=== PATIENT | female | born 1930 | race Caucasian/White ===

== ENCOUNTER 2017-12-17 03:31 | Inpatient (IN) ==
[2017-12-17] MEDS ORDERED: HYDROMORPHONE 2 MG/ML INJECTION IVP ONE (03:52)
[2017-12-17] MEDS ORDERED: ONDANSETRON 4 MG/2 ML INJECTION IVP ONE (03:52)
[2017-12-17] MEDS ORDERED: IOHEXOL 300mg/ml 100ml INJECTION ONE (04:06)
[2017-12-17] MEDS ORDERED: SALINE FLUSH 10ml SYRINGE ONE (04:06)
[2017-12-17] MEDS: SALINE FLUSH 10ml SYRINGE IVF PRN ×2 (04:14→06:05)
[2017-12-17] MEDS ORDERED: FentaNYL 100 MCG/2 ML INJECTION IVP PRN (05:41)
--- NOTE | 2017-12-17 05:54 | Emergency Department Report ---
Abdominal Pain HPI - General Chief Complaint: Abdominal Pain <JanetteSelamn Q - 12/17/17 07:17> Stated Complaint: abd and back pain <Jose Savage - 12/17/17 07:17> Time Seen by Provider: 12/17/17 03:47 <JanetteJose Q - 12/17/17 07:17> - History of Present Illness HPI narrative: 87-year-old female presents with acute onset abdominal pain. Pain is left-sided radiating from midepigastric. P pain onset yesterday evening progressed throughout the night until it became intolerable. She said some nausea but no vomiting. No diarrhea. No previous abdominal trauma. She does have a history of atrial fibrillation and is on flecainide and Eliquis. No fever or chills. Patient has previous history of breast cancer with chemotherapy. <Hebert Adams - 12/17/17 05:55> - Related Data Home Medications Medication Instructions Recorded Confirmed Apixaban [Eliquis] 2.5 tab PO BID 12/17/17 12/17/17 Citalopram [Celexa] 1 tab PO DAILY 12/17/17 12/17/17 Flecainide [Tambocor] 100 mg PO BID 12/17/17 12/17/17 Losartan [Cozaar] 100 mg PO DAILY 12/17/17 12/17/17 Metoprolol Succinate (XL) [Toprol 25 mg PO DAILY 12/17/17 12/17/17 Xl] hydroCHLOROthiazide 1 tab PO DAILY 12/17/17 12/17/17 [Hydrochlorothiazide] <Jose Savage - 12/17/17 07:17> Allergies Allergy/AdvReac Type Severity Reaction Status Date / Time No Known Allergies Allergy Verified 12/17/17 03:45 <AlfalfaJose fernandez - 12/17/17 07:17> Review of Systems All systems: reviewed and negative except as stated <Hebert Adams - 05:55> [facility] Patient Stated Medical History Cardiac Arrhythmia Yes: a fib Hypertension Yes Chemotherapy Yes: in the past <Jose Savage - 12/17/17 07:17> - Social History Smoking status: Never smoker <Hebert Adams - 12/17/17 05:55> Physical Exam - Limitations Limitations: no limitations <Hebert Adams 12/17/17 05:55> - General General appearance: alert, in distress (pain) <AngieHebert kuaffman 12/17/17 05:55 > - Normal Exams: Head:: Normocephalic without trauma <ElwoodHebert kauffman 12/17/17 06:16> Chest/Respirations:: Clear all velasquez, with good airflow, and symmetry bilaterally <ElwoodHebert kauffman 12/17/17 06:16> Cardiovascular:: Regular rate and rhythm, without murmur or gallop, Pulses 2+ all extremities, capillary refill, <2 seconds all extremities <AngieHebert kauffman 12/17/17 06:16> Neurological:: Patient is alert, and oriented, cranial nerves, motor/sensory/ cerebellar, exams w/o gross deficits, to observation <ElwoodHebert kauffman 06:16> - Chest Chest inspection: Present: other (unilateral mastectomy) <AngieHebert kauffman 06:16> - Abdominal Exam Abdominal exam: Present: soft, tenderness (midepigastric left upper quadrant), guarding, rebound, diminished bowel sounds. Absent: rigidity <ElwoodHebert kauffman 12/17/17 06:16> Course Vital Signs Temperature 98.0 F 12/17/17 03:37 Pulse Rate 58 L 12/17/17 03:37 Respiratory Rate 16 12/17/17 03:37 Blood Pressure 212/84 H 12/17/17 03:37 Pulse Oximetry 97 12/17/17 03:37 Temperature 98.0 F 12/17/17 03:37 Pulse Rate 54 L 12/17/17 06:30 Respiratory Rate 16 12/17/17 03:37 Blood Pressure 173/76 H 12/17/17 06:30 Pulse Oximetry 97 12/17/17 06:30 <Jose Savage Q - 12/17/17 07:17> Abdominal Pain - MDM Narrative Medical decision making narrative: Patient's lactate is 1.0, normal. Discussed case with Dr. Wylie, mesenteric ischemia would be lower on the differential at this time. She will observe patient, contact Dr. Caldera. <Jose Savage Q - 12/17/17 07:17> Peripheral IV with 500 cc normal saline bolus. CBC, CMP, UA with CT abdomen with contrast. She was given 0.5 mg Dilaudid with 4 mg Zofran IV. She also required 50 g fentanyl IV. White count returns appropriate with appropriate CMP. CT abdomen shows likely mesenteric ischemia. I spoke with Dr. Rodriguez, at [facility], who read to consult and help follow this patient. He recommended hospitalist to admit. I spoke with Dr. Samuel , hospitalist, who quested a lactate before agreeing to accept patient. He felt that lactate less than 4 was not mesenteric ischemia and she would not be appropriate for transfer. is assuming care here, lactate is ordered. <Hebert Adams - 12/17/17 06:16> - Differential Diagnosis Differential diagnosis: Likely: abdominal pain, acute appendicitis, constipation , gastroenteritis, pancreatitis, small bowel obstruction <Hebert Adams - 06:16> - Medical Records Attestation: I reviewed the patient's medical records. <Jose Savage - 07:17> - Lab Data Attestation: I reviewed the patient's lab results. <Jose Savage - 12/17 07:17> I reviewed the patient's lab results. <Hebert Adams - 06:16> Result diagrams: 12/17/17 04:04 12/17/17 04:04 <Jose Savage - 12/17/17 07:17> Lab Results 12/17/17 12/17/17 12/17/17 Range/Units 04:04 04:04 06:04 WBC 8.8 (4.5-11.0) T/MM3 RBC 3.77 L (4.00-5.20) M/MM3 Hgb 12.0 (12-16) GM/DL Hct 35.1 L (36-46) % MCV 93.1 (80-100) UM3 MCH 31.8 (26-34) UUG MCHC 34.2 (31-37) GM/DL RDW Std Deviation 43.3 (36.9-50.2) FL Plt Count 295 (130-400) T/MM3 MPV 10.1 (9.4-12.4) UM3 Immature Gran % (Auto) Not performed Neut % (Auto) Not performed Lymph % (Auto) Not performed [place] % (Auto) Not performed Eos % (Auto) Not performed Baso % (Auto) Not performed Neut # (Auto) Not performed Lymph # (Auto) Not performed [place] # (Auto) Not performed Eos # (Auto) Not performed Baso # (Auto) Not performed Abs Immat Gran (auto) Not performed Neutrophils % (Manual) 87.0 H (33-66) % Lymphocytes % (Manual) 9.0 L (23-45) % Monocytes % (Manual) 2.0 (0-9.0) % Eosinophils % (Manual) 2.0 (0-4) % Neutrophils # (Manual) 7.7 (1.8-7.7) T/MM3 Lymphocytes # (Manual) 0.8 L (1-4.8) T/MM3 Monocytes # (Manual) 0.2 (0-0.8) T/MM3 Eosinophils # (Manual) 0.2 (0-0.5) T/MM3 RBC Morph Comment Normal Turbidity < 20 (0-20) Sodium 137 (136-146) MEQ/L Potassium 3.6 (3.6-5) MEQ/L Chloride 99 (98-107) MEQ/L Carbon Dioxide 28 (22-30) MEQ/L Anion Gap 10 (5-15) meq/L BUN 19.0 H (7-17) MG/DL Creatinine 0.7 (0.7-1.2) mg/dL Estimated Creat Clear 44 (>50) mL/min GFR Calculation 80 (>60) mL/min BUN/Creatinine Ratio 27 H (6-26) RATIO Glucose 137 H (65-110) MG/DL Calculated Osmolality 268 (261-280) MOSM/KG Calcium 9.1 (8.4-10.2) MG/DL Total Bilirubin 0.30 (0.20-1.30) MG/DL Icterus Index < 2 (0-7) AST 22 (14-36) U/L ALT 14 (1-35) U/L Alkaline Phosphatase 52 (38-126) U/L Total Protein 7.1 (6.3-8.2) g/dL Albumin 4.2 (3.5-5.0) g/dL Globulin 2.9 (2.4-3.6) G/DL Albumin/Globulin Ratio 1.4 (1.1-2.2) RATIO Lipase 115 (23-300) U/L Plasma Lactate (0.6-2.2) MMOL/L Specimen Hemolysis < 15 (0-25) Ur Collection Type Urine, void-cc/notcc Urine Color Yellow (YELLOW) Urine Clarity Sl cloudy Urine pH 5.5 (5.0-8.0) Ur Specific [place] 1.010 L (1.015-1.025) Urine Protein Negative (NEGATIVE) Urine Glucose (UA) Negative (NEGATIVE) Urine Ketones Negative (NEGATIVE) Urine Occult Blood 1+ A (NEGATIVE) Urine Nitrate Positive A (NEGATIVE) Urine Bilirubin Negative (NEGATIVE) Urine Urobilinogen 0.2 (NORMAL) EU/DL Ur Leukocyte Esterase 1+ A (NEGATIVE) Urine RBC 3-5 H (0-3) /HPF Urine WBC 20-30 H (0-5) /HPF Urine Bacteria 2+ H (NEGATIVE) Ur Culture Indicated? Cult reflexed &setup 12/17/17 Range/Units 06:22 WBC (4.5-11.0) T/MM3 RBC (4.00-5.20) M/MM3 Hgb (12-16) GM/DL Hct (36-46) % MCV (80-100) UM3 MCH (26-34) UUG MCHC (31-37) GM/DL RDW Std Deviation (36.9-50.2) FL Plt Count (130-400) T/MM3 MPV (9.4-12.4) UM3 Immature Gran % (Auto) Neut % (Auto) Lymph % (Auto) [place] % (Auto) Eos % (Auto) Baso % (Auto) Neut # (Auto) Lymph # (Auto) [place] # (Auto) Eos # (Auto) Baso # (Auto) Abs Immat Gran (auto) Neutrophils % (Manual) (33-66) % Lymphocytes % (Manual) (23-45) % Monocytes % (Manual) (0-9.0) % Eosinophils % (Manual) (0-4) % Neutrophils # (Manual) (1.8-7.7) T/MM3 Lymphocytes # (Manual) (1-4.8) T/MM3 Monocytes # (Manual) (0-0.8) T/MM3 Eosinophils # (Manual) (0-0.5) T/MM3 RBC Morph Comment Turbidity (0-20) Sodium (136-146) MEQ/L Potassium (3.6-5) MEQ/L Chloride (98-107) MEQ/L Carbon Dioxide (22-30) MEQ/L Anion Gap (5-15) meq/L BUN (7-17) MG/DL Creatinine (0.7-1.2) mg/dL Estimated Creat Clear (>50) mL/min GFR Calculation (>60) mL/min BUN/Creatinine Ratio (6-26) RATIO Glucose (65-110) MG/DL Calculated Osmolality (261-280) MOSM/KG Calcium (8.4-10.2) MG/DL Total Bilirubin (0.20-1.30) MG/DL Icterus Index (0-7) AST (14-36) U/L ALT (1-35) U/L Alkaline Phosphatase (38-126) U/L Total Protein (6.3-8.2) g/dL Albumin (3.5-5.0) g/dL Globulin (2.4-3.6) G/DL Albumin/Globulin Ratio (1.1-2.2) RATIO Lipase (23-300) U/L Plasma Lactate 1.0 (0.6-2.2) MMOL/L Specimen Hemolysis (0-25) Ur Collection Type Urine Color (YELLOW) Urine Clarity Urine pH (5.0-8.0) Ur Specific [place] (1.015-1.025) Urine Protein (NEGATIVE) Urine Glucose (UA) (NEGATIVE) Urine Ketones (NEGATIVE) Urine Occult Blood (NEGATIVE) Urine Nitrate (NEGATIVE) Urine Bilirubin (NEGATIVE) Urine Urobilinogen (NORMAL) EU/DL Ur Leukocyte Esterase (NEGATIVE) Urine RBC (0-3) /HPF Urine WBC (0-5) /HPF Urine Bacteria (NEGATIVE) Ur Culture Indicated? <Jose Savage Q - 12/17/17 07:17> - Radiology Data Attestation: I reviewed the patient's radiology results. <Jose Savage Q - 12/17/17 07:17> I reviewed the patient's radiology results. <Hebert Adams - 12/17/17 06:16> Radiology results called as likely mesenteric ischemia. See written report. <Hebert Adams - 12/17/17 06:16> Disposition Clinical Impression: Abdominal pain Qualifiers: Abdominal location: generalized Qualified Code(s): R10.84 - Generalized abdominal pain <Jose Savage Q - 12/17/17 07:17> Disposition: 02 To [facility] <Jose Savage Q - 12/17/17 07:17> Condition: Stable <JanetteJose fernandez Q - 12/17/17 07:17> Instructions: <Jose Savage Q - 12/17/17 07:17> Prescriptions: No Action Metoprolol Succinate (XL) [Toprol Xl] 25 mg PO DAILY Losartan [Cozaar] 100 mg PO DAILY Flecainide [Tambocor] 100 mg PO BID hydroCHLOROthiazide [Hydrochlorothiazide] 1 tab PO DAILY Apixaban [Eliquis] 2.5 tab PO BID Citalopram [Celexa] 1 tab PO DAILY <Jose Savage Q - 12/17/17 07:17> Referrals: Garfield Dyer MD [Primary Care Provider] - <Jose Savage Q - 12/17/17 07:17> Forms: <Jose Savage Q - 12/17/17 07:17> Time of Disposition: 07:17 <Jose Savage Q - 12/17/17 07:17> - Seen By: physician <Jose Savage Q - 12/17/17 07:17>
[2017-12-17] MEDS ORDERED: ENOXAPARIN 80 MG/0.8 ML INJECTION SQ ONE (07:20)
--- NOTE | 2017-12-17 08:29 | CT Scan Report ---
Indication: abd pain PROCEDURE: CT abdomen pelvis w con: Encounter: Initial Comparison: None Technique: Helical imaging was performed through the abdomen and pelvis with three-dimensional volume rendered reconstructions performed on the helically acquired data. Automated Exposure Control and Iterative Reconstruction dose reducing techniques were utilized. FINDINGS: Abdomen: The lung bases are clear. There is no evidence of pleural effusion. The liver is homogeneous in appearance without evidence of enhancing lesion or mass. Gallbladder is unremarkable. There is no intra or extrahepatic biliary ductal dilatation. The spleen, pancreas, bilateral adrenals and kidneys are within normal limits. Left renal vein. The abdominal aorta is nonaneurysmal with moderate calcific atherosclerotic disease. The celiac axis, SMA, and FRANKLIN appear patent. Pelvis: There are some thickened loops of small bowel in the right lower quadrant with edema extending into the mesentery, suggesting colitis. The urinary bladder is not distended. There is no free pelvic fluid. There is no inguinal or pelvic lymphadenopathy. No gross lytic or blastic bony lesions are identified. IMPRESSION: Moderate diffuse thickening of the small bowel in the right lower quadrant with mesenteric edema. This suggests colitis either infectious, inflammatory, or ischemic. No definite vascular occlusion. .
[2017-12-17] MEDS ORDERED: NS 1,000 ML IV SCH (09:45)
--- NOTE | 2017-12-17 09:45 | History & Physical Report ---
History of Present Illness Date: 12/17/17 Chief complaint: abdominal pain, colitis HPI: Lisbeth Hernandez is a pleasant 87-year-old female patient of Dr. Garfield Dyer who also follows with Dr. Gaytan for her a-fib and hypertension. She complains of generalized abdominal pain that is worse in the right lower quadrant that begin suddenly last night. She took some Pepto-Bismol without relieve and reports vomiting it right back up. She complains of increased fatigue recently as well as nausea but denies any fevers, chills, chest pain, shortness of breath, diarrhea or dysuria. Around 2am her pain became intolerable so she presented to [facility] ED for evaluation. Upon arrival to the ED, she was hypertensive at 212/84. Her blood pressure improved after receiving Dilaudid 0.5mg and fentanyl 50 mcg for pain control. Labs were relatively unremarkable. She was noted to be hyperglycemic at 137 but denies a history of diabetes. Lactate was 1.0. UA did reveal + nitrate with 20-30 WBC and 2+ bacteria. CT abdomen/pelvis revealed moderate diffuse thickening of the small bowel in the right lower quadrant with mesenteric edema which suggests colitis either from infectious, inflammatory or ischemic without definite vascular occlusion. Initial v-rad report was concerning for mesenteric ischemia and case was discussed with Dr. Rivas, vascular surgeon in [place], who recommended admitting the patient to the hospitalist service at [facility]. Dr. Wylie was consulted and she was admitted to observation status for further evaluation and close monitoring. Dr. Caldera was consulted for surgical evaluation and expertise. Review of Systems All systems PM: 10-point ROS was reviewed, no additional remarkable complaints except - Constitutional Constitutional: Present: fatigue. Absent: chills, fever(s), weakness - EENMT Eyes: Absent: diplopia, loss of vision, photophobia Ears: Absent: ear pain Balance: Absent: falling to one side Nose: Absent: nosebleeds, allergies Mouth/Throat: Present: dry mouth. Absent: sore throat, changes in swallowing - Cardiovascular Cardiovascular: Absent: chest pain, palpitations, syncope, dyspnea on exertion, orthopnea, edema Rhythm: Present: regular rhythm Vascular: Absent: pallor of an extermity, pedal edema, unilateral swelling - Respiratory Respiratory: Absent: cough, dyspnea, hemoptysis, dyspnea on exertion, wheezing, pain on inspiration, chest congestion - Gastrointestinal Gastrointestinal: Present: abdominal pain, nausea, vomiting. Absent: change in bowel habits, diarrhea, hematochezia, melena - Genitourinary Genitourinary: Absent: dysuria, flank pain, hematuria Menstruation: post menopausal - Musculoskeletal Musculoskeletal: Present: back pain. Absent: deformity, limited range of motion , muscle weakness - Integumentary/Breasts Integumentary: Absent: rash - Neurological Neurological: Absent: abnormal gait, dizziness, focal weakness, weakness - Psychiatric Psychiatric: Absent: anxiety, depression - Endocrine Endocrine: Absent: cold intolerance, heat intolerance, palpitations - Hematologic/Lymphatic Hematologic/Lymphatic: Present: easy bruising (Eliquis) - Allergic/Immunologic Allergic/Immunologic: Absent: seasonal rhinorrhea Past Medical History Medical History: Medical History (Last Updated 12/17/17 @ 09:58 by NANY Trujillo) A-fib Chronic anticoagulation Eliquis History of GI bleed History of blood transfusion 2015 History of breast cancer ~1991 - underwent chemotherapy Hypertension Surgical History: x 3. Appendectomy. Right oophorectomy secondary to mass. Heart cath (unremarkable) - 2013. Family History: Family History Father Liver cancer Mother Diabetes High blood pressure Patient has 3 living children, 2 daughters and a son, all reportedly healthy. 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 Garfield Dyer Cardio - Dr. Gaytan (has not seen him yet). Medications Home Medications Medication Instructions Recorded Confirmed Type Apixaban [Eliquis] 2.5 tab PO BID 12/17/17 12/17/17 History Citalopram [Celexa] 1 tab PO DAILY 12/17/17 12/17/17 History Flecainide [Tambocor] 100 mg PO BID 12/17/17 12/17/17 History Losartan [Cozaar] 100 mg PO DAILY 12/17/17 12/17/17 History Metoprolol Succinate (XL) [Toprol 25 mg PO DAILY 12/17/17 12/17/17 History Xl] hydroCHLOROthiazide 1 tab PO DAILY 12/17/17 12/17/17 History [Hydrochlorothiazide] Allergies Allergy/AdvReac Type Severity Reaction Status Date / Time No Known Allergies Allergy Verified 12/17/17 03:45 Exam Vital Signs: Temperature 98.2 F 12/17/17 07:45 Pulse Rate 61 12/17/17 07:45 Respiratory Rate 16 12/17/17 07:45 Blood Pressure 166/71 H 12/17/17 07:45 Pulse Oximetry 96 12/17/17 07:45 Height/Weight/BMI: Height 5 ft Weight 98 lb 8.746 oz Body Mass Index 19.2 Comments: Patient is seen in her room while resting in bed, watching TV. She appears comfortable in bed and is alert and orientated x 3. Non-toxic appearing. - Constitutional Present: no acute distress, well nourished, well developed, thin, cooperative - Routine HEENT Exam Head: Present: normocephalic, atraumatic Eye: Present: PERRL. Absent: conjunctival icterus ENT: Present: mucous membranes dry, oropharynx clear - Routine Neck Exam Present: supple, full ROM, trachea midline - Routine Chest/Breast/Axilla Exam Chest wall: Absent: pacemaker - Routine Respiratory Exam Present: CTA bilaterally. Absent: respiratory distress, wheezes - Routine Cardiovascular Exam Present: RRR, S1, S2 - Routine Abdominal Exam Present: tenderness (generalized, worse in RLQ), distended, guarding Comments: Hyperactive bowel sounds. - Routine Extremities Exam Present: no edema, full ROM, pulses intact, normal capillary refill - Routine Back/Spine/Pelvis Exam Back/Spine: Present: full ROM. Absent: vertebral tenderness - Routine Skin Exam Present: intact, dry, warm Comments: Afebrile. - Routine Neurological Exam Present: alert, oriented X3, CN II-XII intact, moving all extremities, hearing grossly intact, normal speech - Routine Psychiatric Exam Present: normal affect, cooperative Results - Labs CBC & Chem 7: 12/17/17 04:04 12/17/17 04:04 Microbiology Results: Microbiology 12/17/17 06:04 Urine, Voided (Cc/notcc) Urine Culture - Preliminary Culture Initiated - Results Pending - Impressions Date of Exam: 12/17/17 Type of Exam(s): CT abdomen pelvis w con Reason for Exam(s): abd pain FINDINGS: Abdomen: The lung bases are clear. There is no evidence of pleural effusion. The liver is homogeneous in appearance without evidence of enhancing lesion or mass. Gallbladder is unremarkable. There is no intra or extrahepatic biliary ductal dilatation. The spleen, pancreas, bilateral adrenals and kidneys are within normal limits. Left renal vein. The abdominal aorta is nonaneurysmal with moderate calcific atherosclerotic disease. The celiac axis, SMA, and FRANKLIN appear patent. Pelvis: There are some thickened loops of small bowel in the right lower quadrant with edema extending into the mesentery, suggesting colitis. The urinary bladder is not distended. There is no free pelvic fluid. There is no inguinal or pelvic lymphadenopathy. No gross lytic or blastic bony lesions are identified. IMPRESSION: Moderate diffuse thickening of the small bowel in the right lower quadrant with mesenteric edema. This suggests colitis either infectious, inflammatory, or ischemic. No definite vascular occlusion. Assessment and Plan (1) Abdominal pain Current visit: Yes Status: Acute (2) Colitis Current visit: Yes Status: Acute Assessment and Plan: Assessment: Colitis, acute. Acute abdominal pain with nausea and vomiting. UTI, acute, POA. A-fib, chronic. Chronic anticoagulation with Eliquis. Hypertension. Plan - 12/17/17: Admit to observation status under the care of Dr. Wylie. Will consult Dr. Caldera for surgical evaluation and expertise. Will initiate Levaquin 500mg IV daily as well as Flagyl 500mg TID for treatment of suspected colitis as well as UTI. Will obtain blood cultures prior to treatment for complete evaluation. Lactate on admission was 1.0. Will keep NPO except for oral medications. Medication list verified with Dr. Dyer - current computer reconciliation is incorrect. Current home medications are as follows: * HCTZ 25mg QAM * Metoprolol succinate ER 50mg BID * Losartan 100mg daily * Citalopram 10mg daily * Fish oil 1000mg BID * Flax oil - 2 tbs over cereal daily * Calcium + D 600-200 mg-unit - 1 tab BID * Vitamin C - 1 tab BID * Eliquis 2.5mg BID * Flecainide 50mg - 2 tabs (100mg) BID Will continue home dosing of metoprolol, losartan, Eliquis and Flecainide and hold other home medications. Recheck labs in AM to monitor blood counts, electrolytes and renal function. Upon discharge, patient's care will be returned to her PCP, Dr. Dyer. Patient requests to be a FULL CODE. DVT Prophylaxis: SCD's, Eliquis GI Prophylaxis: Protonix Resuscitation Status: Full Code - Time spent with patient Time with patient PN: 70 minutes - Physician Narrative Physician: Reina Wylie MD Narrative: Date: 12/17/17 Time: 1325 I have independently evaluated and examined this patient. I reviewed the chart, the patient's history, and the PROFESSOR OF GRAPHIC DESIGN/PA's documented findings as above. We discussed and formulated the assessment and plan as above with additions as below: Mrs. Keyes describes onset of generalized abdominal pain early yesterday evening after not feeling well nonspecifically throughout the day yesterday. Pain is most intense in the right lower quadrant and has been associated with nausea and at least a couple of episodes of emesis triggered by use of Pepto- Bismol. Nausea is ongoing and she denies hematemesis or coffee-ground emesis. She had a normal bowel movement yesterday and has had no diarrhea. She describes significant "gas" and correlates more intense pain with bowel sounds that she can hear. Pain never goes away but intensity varies. She's felt warm but denies chills or sweats. CT as reported above. No dysuria/urinary frequency/ flank pain. Ill-appearing female, alert; temperature 98.2, oxygen saturation 96% room air Respirations nonlabored, good airflow, regular cardiac rhythm Abdomen soft with diffuse tenderness greatest in the right lower quadrant with guarding is present, hyperactive bowel sounds present CT abdomen/pelvis reviewed by myself and discussed with Dr. Savage-thickened loops small bowel in the right lower quadrant with edema extending into the mesentery per radiology report, consistent with colitis; moderate aortic calcification. WBC 8.8 with 87% neutrophils; LDH 432, lactic acid 1.0, procalcitonin < 0.05. There was initial concern of possible ischemic colitis however LDH and lactic acid are both low; formal reading of CT this morning indicated celiac access, SMA, and FRANKLIN are patent. Subacute onset abdominal pain, initiate treatment for infectious colitis and monitor closely. Discussed with Dr. Caldera. Requiring IV narcotics for pain control. Asymptomatic pyuria-urine culture pending, unclear treatment is indicated although will likely be covered by Levaquin. Hospital Course Summary Disclaimer: The visit summary below is not to be considered part of the above Progress Note. Hospital Course: Plan - 12/17/17: Admit to observation status under the care of Dr. Wylie. Will consult Dr. Caldera for surgical evaluation and expertise. Will initiate Levaquin 500mg IV daily as well as Flagyl 500mg TID for treatment of suspected colitis as well as UTI. Will obtain blood cultures prior to treatment for complete evaluation. Lactate on admission was 1.0. Will keep NPO except for oral medications. Medication list verified with Dr. Dyer - current computer reconciliation is incorrect. Current home medications are as follows: * HCTZ 25mg QAM * Metoprolol succinate ER 50mg BID * Losartan 100mg daily * Citalopram 10mg daily * Fish oil 1000mg BID * Flax oil - 2 tbs over cereal daily * Calcium + D 600-200 mg-unit - 1 tab BID * Vitamin C - 1 tab BID * Eliquis 2.5mg BID * Flecainide 50mg - 2 tabs (100mg) BID Will continue home dosing of metoprolol, losartan, Eliquis and Flecainide and hold other home medications. Recheck labs in AM to monitor blood counts, electrolytes and renal function. Upon discharge, patient's care will be returned to her PCP, Dr. Dyer. Patient requests to be a FULL CODE.
[2017-12-17] MEDS: MORPHINE SULFATE 2mg INJECTION IVP PRN ×2 (10:08→17:13)
[2017-12-17] MEDS: ONDANSETRON 4 MG/2 ML INJECTION IVP PRN (10:08)
[2017-12-17] MEDS: LEVOFLOXACIN PB 500 MG/100 ML BAG IV SCH (10:31)
[2017-12-17] MEDS: LR 1,000 ML IV SCH ×3 (10:32→22:00)
[2017-12-17] MEDS ORDERED: PNEUMOCOCCAL 13 VACCINE 0.5ml INJECTION IM ONE (12:27)
[2017-12-17] MEDS: MetroNIDAZOLE PB 500 MG/100 ML BAG IV SCH ×2 (13:39→19:51)
[2017-12-17] MEDS: PANTOPRAZOLE 40 MG INJECTION IVP SCH (15:54)
--- NOTE | 2017-12-17 17:58 | General Surgery Consult Note ---
Consult date: 12/18/17 Attending Physician: Reina Wylie MD Reason for consult: other (colitis) [facility] Medical History (Last Updated 12/18/17 @ 13:53 by Abiel Caledra MD) Chronic anticoagulation (Chronic) Eliquis History of breast cancer (Resolved ~1991) Left sided - underwent mastectomy and adjuvant chemotherapy Hypertension (Chronic) A-fib (Chronic) History of GI bleed (Resolved) History of blood transfusion (Inactive 2015) Surgical History: * Colonoscopy - ~2015 by [facility] in [place], [place]. * Right oophorectomy secondary to mass. * Heart cath (unremarkable) - 2013. * Left mastectomy - 1991. * x 3. * Appendectomy. 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[employer]) Does patient use chewing tobacco?: No Current residence: Apartment/Private Home Medications Home Medications Medication Instructions Recorded Confirmed Type Apixaban [Eliquis] 2.5 tab PO BID 12/17/17 12/17/17 History Citalopram [Celexa] 1 tab PO DAILY 12/17/17 12/17/17 History Flecainide [Tambocor] 100 mg PO BID 12/17/17 12/17/17 History Losartan [Cozaar] 100 mg PO DAILY 12/17/17 12/17/17 History Metoprolol Succinate (XL) [Toprol 25 mg PO DAILY 12/17/17 12/17/17 History Xl] hydroCHLOROthiazide 1 tab PO DAILY 12/17/17 12/17/17 History [Hydrochlorothiazide] Allergies Allergy/AdvReac Type Severity Reaction Status Date / Time No Known Allergies Allergy Verified 12/17/17 03:45 Review of Systems 10-point ROS: negative except for HPI and the following: - General General: Present: night sweats - Cardiovascular Cardiovascular: Present: irregular heart beat (a-fib) - Genitourinary Genitourinary: Present: other (UTI) - Musculoskeletal Musculoskeletal: Present: back pain (chronic) - Psychiatric Psychiatric: Present: anxiety - Hematologic/Lymphatic Hematologic/Lymphatic: Present: use of blood thinners - Vital Signs Last Vital Signs Temp 97.1 F 12/17/17 15:45 Pulse 64 12/17/17 15:45 Resp 16 12/17/17 15:45 BP 165/69 H 12/17/17 15:45 Pulse Ox 97 12/17/17 15:45 - Laboratory Result Diagrams: 12/18/17 04:19 12/18/17 04:19
[2017-12-17] MEDS: APIXABAN 2.5 MG TABLET PO SCH (20:57)
[2017-12-17] MEDS: FLECAINIDE 100 MG TABLET PO SCH (20:58)
[2017-12-18] MEDS: MORPHINE SULFATE 2mg INJECTION IVP PRN (01:55)
[2017-12-18] MEDS: MetroNIDAZOLE PB 500 MG/100 ML BAG IV SCH ×3 (03:55→20:34)
[2017-12-18] MEDS: NS 1,000 ML IV SCH ×2 (08:22→20:37)
[2017-12-18] MEDS: LOSARTAN 100 MG TABLET PO SCH (08:23)
[2017-12-18] MEDS: FLECAINIDE 100 MG TABLET PO SCH ×2 (08:23→20:34)
[2017-12-18] MEDS: PANTOPRAZOLE 40 MG INJECTION IVP SCH (08:24)
[2017-12-18] MEDS: APIXABAN 2.5 MG TABLET PO SCH (08:24)
[2017-12-18] MEDS: LR 1,000 ML IV SCH (08:30)
[2017-12-18] MEDS ORDERED: ENOXAPARIN 40 MG/0.4 ML INJECTION SQ SCH (09:00)
--- NOTE | 2017-12-18 09:02 | Progress Note ---
- Date 12/18/17 Subjective: Feeling much better this morning, no further abdominal pain or vomiting. Denies fevers, chills, dyspnea. Remains on IVF and NPO. KUB done this morning. Objective Vital signs: Temperature 96.9 F 12/18/17 07:06 Pulse Rate 66 12/18/17 07:41 Respiratory Rate 16 12/18/17 07:06 Blood Pressure 141/70 H 12/18/17 07:06 Pulse Oximetry 95 12/18/17 07:06 Height/Weight/BMI: Height 1.52 m Weight 44.9 kg Body Mass Index 19.2 - Constitutional Present: no acute distress, well nourished, well developed, cooperative - Routine HEENT Exam Head: Present: normocephalic, atraumatic Eye: Present: EOMI, PERRL. Absent: conjunctival icterus ENT: Present: mucous membranes moist, oropharynx clear - Routine Respiratory Exam Present: CTA bilaterally. Absent: rales, wheezes - Routine Cardiovascular Exam Present: RRR - Routine Abdominal Exam Present: soft, tenderness (mild and diffuse, no rigidity or guarding ), non distended - Routine Extremities Exam Present: no edema, pulses intact, normal capillary refill - Routine Skin Exam Present: dry, warm. Absent: rash - Routine Neurological Exam Present: alert, oriented X3, normal speech - Routine Psychiatric Exam Present: normal affect, normal thought process Results - Labs CBC & Chem 7: 12/18/17 04:19 12/18/17 04:19 Microbiology Results: Microbiology 12/17/17 06:04 Urine, Voided (Cc/notcc) Urine Culture - Final Mixed Bacterial David Present -No further testing will be performed 12/17/17 10:28 Peripheral/Iv Start Blood Culture - Preliminary Culture Initiated - Results Pending 12/17/17 10:20 Peripheral/Iv Start Blood Culture - Preliminary Culture Initiated - Results Pending - Impressions KUB reviewed from this morning, report pending, large distended loops of colon. Assessment and Plan Assessment and Plan: Assessment: Acute colitis of unclear etiology, improved with supportive care and IV antibiotics (levaquin/flagyl) --> WBC increased to 12.4K today --> Currently on LR @ 100 cc/hour and NPO --. Dr. Caldera consulted for surgical opinion Acute abdominal pain with nausea and vomiting, improved with NPO/IVF Pyuria and bacteruria; culture reviewed with mixed david Chronic atrial fibrillation, anticoagulated with eliqius and rate controlled with toprol/flecainide Hypertension, controlled Plan - 12/18/17: Continue current antibiotics and NPO state pending further evaluation by Dr. Caldera Decrease LR to 50 cc/hour maintenance rate for now pending further plans Will keep NPO except for oral medications for now Will continue home dosing of metoprolol, losartan, Eliquis and Flecainide and hold other home medications for now Recheck labs in AM to monitor blood counts, electrolytes and renal function DVT Prophylaxis: SCD's, Eliquis GI Prophylaxis: Protonix Resuscitation Status: Full Code - Physician Narrative Narrative: Date: 12/18/17 Time: 0856 Hospital Course Summary Disclaimer: The visit summary below is not to be considered part of the above Progress Note. Hospital Course: Plan - 12/17/17: Admit to observation status under the care of Dr. Wylie. Will consult Dr. Caldera for surgical evaluation and expertise. Will initiate Levaquin 500mg IV daily as well as Flagyl 500mg TID for treatment of suspected colitis as well as UTI. Will obtain blood cultures prior to treatment for complete evaluation. Lactate on admission was 1.0. Will keep NPO except for oral medications. Medication list verified with Dr. Dyer - current computer reconciliation is incorrect. Current home medications are as follows: * HCTZ 25mg QAM * Metoprolol succinate ER 50mg BID * Losartan 100mg daily * Citalopram 10mg daily * Fish oil 1000mg BID * Flax oil - 2 tbs over cereal daily * Calcium + D 600-200 mg-unit - 1 tab BID * Vitamin C - 1 tab BID * Eliquis 2.5mg BID * Flecainide 50mg - 2 tabs (100mg) BID Will continue home dosing of metoprolol, losartan, Eliquis and Flecainide and hold other home medications. Recheck labs in AM to monitor blood counts, electrolytes and renal function. Upon discharge, patient's care will be returned to her PCP, Dr. Dyer. Patient requests to be a FULL CODE. Plan - 12/18/17: Continue current antibiotics and NPO state pending further evaluation by Dr. Caldera Decrease LR to 50 cc/hour maintenance rate for now pending further plans Will keep NPO except for oral medications for now Will continue home dosing of metoprolol, losartan, Eliquis and Flecainide and hold other home medications for now Recheck labs in AM to monitor blood counts, electrolytes and renal function
[2017-12-18] MEDS: LEVOFLOXACIN PB 500 MG/100 ML BAG IV SCH (09:03)
--- NOTE | 2017-12-18 14:39 | Consultation ---
DATE OF CONSULTATION 12/17/2017 CONSULTING PHYSICIAN Abiel Caldera MD REQUESTING PROVIDER NANY Jeffries REASON FOR CONSULTATION Colitis. IMPRESSION 1. Enteritis of uncertain etiology. This is most likely an infectious process since the new onset of inflammatory bowel disease at age 87 would be less likely. 2. Anticoagulation with Eliquis. 3. Atrial fibrillation. 4. Urinary tract infection. PLAN 1. Continue n.p.o. for now. 2. IV antibiotics to cover both urinary tract infection and enteritis. Levaquin and Flagyl were recommended to the hospitalist team by telephone earlier today. 3. Hold Eliquis in case intervention does become necessary. HISTORY OF PRESENT ILLNESS Lisbeth is an 87-year-old female patient of Dr. Garfield Dyer who began to feel uncomfortable last evening around 9:00 p.m. By 10 o'clock her pain was increasing. She said that by 2 o'clock this morning her pain was intolerable and she came to the emergency department. When asked to describe her pain she could not describe the quality of the pain but said that it was "very painful." Further clarification said that it was a pressure-type pain. She rated it 8 out of 10 in severity and says that her pain was constant. Her pain is better with morphine treatment. She also reports having some back pain. She had not had any diarrhea or constipation. She is on Eliquis due to atrial fibrillation. In the emergency department she had a CT scan of the abdomen and pelvis that had shown moderate diffuse thickening of the small bowel in the right lower quadrant and some mesenteric edema. Because of the CT findings she was admitted to the hospitalist service and Surgery was consulted. PAST MEDICAL HISTORY, PAST SURGICAL HISTORY, MEDICATIONS, ALLERGIES, SOCIAL HISTORY, FAMILY HISTORY, REVIEW OF SYSTEMS, VITAL SIGNS, LABORATORY DATA See electronic consultation note. PHYSICAL EXAMINATION GENERAL: The patient is awake and alert, in no acute distress. HEENT: Sclerae clear. Extraocular muscles intact. NECK: Supple with a midline trachea. No lymphadenopathy or thyromegaly are noted. HEART: Regular rate and rhythm. LUNGS: Clear to auscultation bilaterally. ABDOMEN: Soft, tender diffusely but most significantly tender in the right upper quadrant. There is no guarding or rebound noted. No masses are noted. Her abdomen does feel slightly distended. EXTREMITIES: No clubbing, cyanosis or edema. NEUROLOGIC: Cranial nerves II-XII are grossly intact. PSYCHIATRIC: Normal mood and affect. PATIENT EDUCATION I did discuss the situation with Lisbeth and her . I explained the rationale for conservative management with IV antibiotics and they were in agreement with the plan. MADAI
--- NOTE | 2017-12-18 14:47 | Progress Note ---
DATE OF VISIT 12/18/2017 REASON FOR VISIT Follow enteritis. SUBJECTIVE Lisbeth feels much better today. Her pain is improved and she has not used any narcotic pain medicine this morning. She did use morphine overnight. OBJECTIVE VITAL SIGNS: Afebrile with stable vitals on room air. GENERAL: The patient is awake and alert, in no acute distress. ABDOMEN: Soft, minimally tender in the right upper quadrant but this is improved from yesterday. She is nontender in the remainder of the abdomen by exam but does report tenderness with palpation. LABORATORY DATA White blood cell count is 12.4. IMPRESSION 1. Enteritis of uncertain etiology though an infectious etiology is most likely. 2. Anticoagulation with Eliquis. 3. Chronic atrial fibrillation. PLAN 1. Continue IV antibiotics. 2. I do think she could be started on a clear liquid diet and see if this changes her abdominal pain. 3. If she tolerates the clear liquid diet and symptoms continue to improve, then her diet could be advanced. 4. Hold Eliquis in case clinical situation worsens and intervention does become necessary. 5. The case was discussed with Dr. Bosch this morning. MADAI
--- NOTE | 2017-12-18 16:24 | XRay Report ---
EXAM: Abdominal KUB with upright TECHNIQUE: Supine and upright views of the abdomen were obtained. HISTORY: colitis COMPARISON: CT abdomen and pelvis dated 12/17/2017. FINDINGS: Increasing gaseous distended loops of small bowel are evident within the mid abdomen with air-fluid levels and decompression of the distal small bowel loops and colon suspicious for acute small bowel obstruction. No free air is evident. No abnormal calcifications are seen. The lower lungs are clear. Included osseous structures are intact. IMPRESSION: Increasing gaseous distended loops of small bowel within the upper abdomen with air-fluid levels suspicious for developing small bowel obstruction. No free air is evident. .
[2017-12-19] MEDS: MetroNIDAZOLE PB 500 MG/100 ML BAG IV SCH ×3 (03:49→20:10)
[2017-12-19] MEDS: LEVOFLOXACIN PB 500 MG/100 ML BAG IV SCH ×2 (08:22→09:04)
[2017-12-19] MEDS: PANTOPRAZOLE 40 MG INJECTION IVP SCH (08:22)
[2017-12-19] MEDS: FLECAINIDE 100 MG TABLET PO SCH ×2 (08:22→20:10)
[2017-12-19] MEDS: LOSARTAN 100 MG TABLET PO SCH (08:22)
[2017-12-19] MEDS: NS 1,000 ML IV SCH ×2 (10:13→17:04)
--- NOTE | 2017-12-19 10:43 | Progress Note ---
- Date 12/19/17 Subjective: Feeling okay this morning, no further abdominal pain, belching quite a bit however. Discussed reasons for holding tobiasis and she is agreeable. Denies dysuria, frequency; BP has been elevated and that is concerning her. No fevers, chills, dyspnea, chest pain. Objective Vital signs: Temperature 98.4 F 12/19/17 07:36 Pulse Rate 75 12/19/17 07:36 Respiratory Rate 16 12/19/17 07:36 Blood Pressure 174/74 H 12/19/17 07:36 Pulse Oximetry 95 12/19/17 07:36 Rhythm: Normal Sinus Rhythm Height/Weight/BMI: Height 1.52 m Weight 44.9 kg Body Mass Index 19.2 - Constitutional Present: no acute distress, well nourished, well developed, cooperative - Routine HEENT Exam Head: Present: normocephalic, atraumatic Eye: Present: EOMI, PERRL. Absent: conjunctival icterus ENT: Present: mucous membranes moist, oropharynx clear - Routine Respiratory Exam Present: CTA bilaterally. Absent: wheezes - Routine Cardiovascular Exam Present: RRR - Routine Abdominal Exam Present: soft, non tender, distended (mild ) - Routine Extremities Exam Present: no edema, normal capillary refill - Routine Skin Exam Present: dry, warm. Absent: rash - Routine Neurological Exam Present: alert, oriented X3, normal speech - Routine Psychiatric Exam Present: normal affect, normal thought process Results - Labs CBC & Chem 7: 12/19/17 04:19 12/19/17 04:19 Microbiology Results: Microbiology 12/17/17 10:28 Peripheral/Iv Start Blood Culture - Preliminary No Growth After 1 Day 12/17/17 10:20 Peripheral/Iv Start Blood Culture - Preliminary No Growth After 1 Day 12/17/17 06:04 Urine, Voided (Cc/notcc) Urine Culture - Final Mixed Bacterial Cheri Present -No further testing will be performed Assessment and Plan Assessment and Plan: Assessment: Acute colitis of unclear etiology, presumed infectious source, improved with supportive care and IV antibiotics (levaquin/flagyl) --> WBC increased again today to 14.6 but symptoms improved although belching more --> Has been on saline 50 cc/hour but taking clears now and tolerating --> Dr. Caldera consulted for surgical opinion, appreciate assistance, no surgical plans thus far --> Eliquis on hold for possible surgery if that becomes necessary; last dose 12/18 Acute abdominal pain with nausea and vomiting, improved with NPO/IVF, tolerating some clears now Pyuria and bacteruria; culture reviewed from admission with mixed cheri Chronic atrial fibrillation, anticoagulated with eliqius and rate controlled with toprol/flecainide --> Sinus currently, eliquis on hold as above Hypertension, controlled outaptient --> Losartan 100 mg daily, toprol XL 50 BID is her typical regimen --> BP has been elevated here in the 170s over the past 24 hours Plan - 12/19/17: Continue current antibiotics and CLD pending further evaluation by Dr. Caldera Continue to hold eliquis until trajectory more clear Stop IVF and allow clear liquid intake alone today Continue losartan and toprol; prn hydralazine ordered for systolic >150--> may add back HCTZ tomorrow if taking more po Recheck labs in AM to monitor blood counts, electrolytes and renal function Repeat clean catch UA to ensure on occult resistant UTI driving leukocytosis Continue inpatient care at this time; still having symptoms and unable to take regular diet thus far Ambulate in the halls today with assistance Discussed with the bedside RN, patient, surgery team--will discuss further with Dr. Tanner this morning. DVT Prophylaxis: SCD's, Eliquis (aaliyahlty held, last dose 12/18) GI Prophylaxis: Protonix Resuscitation Status: Full Code - Physician Narrative Narrative: Date: 12/18/17 Time: 0856 Hospital Course Summary Disclaimer: The visit summary below is not to be considered part of the above Progress Note. Hospital Course: Plan - 12/17/17: Admit to observation status under the care of Dr. Wylie. Will consult Dr. Caldera for surgical evaluation and expertise. Will initiate Levaquin 500mg IV daily as well as Flagyl 500mg TID for treatment of suspected colitis as well as UTI. Will obtain blood cultures prior to treatment for complete evaluation. Lactate on admission was 1.0. Will keep NPO except for oral medications. Medication list verified with Dr. Dyer - current computer reconciliation is incorrect. Current home medications are as follows: * HCTZ 25mg QAM * Metoprolol succinate ER 50mg BID * Losartan 100mg daily * Citalopram 10mg daily * Fish oil 1000mg BID * Flax oil - 2 tbs over cereal daily * Calcium + D 600-200 mg-unit - 1 tab BID * Vitamin C - 1 tab BID * Eliquis 2.5mg BID * Flecainide 50mg - 2 tabs (100mg) BID Will continue home dosing of metoprolol, losartan, Eliquis and Flecainide and hold other home medications. Recheck labs in AM to monitor blood counts, electrolytes and renal function. Upon discharge, patient's care will be returned to her PCP, Dr. Dyer. Patient requests to be a FULL CODE. Plan - 12/18/17: Continue current antibiotics and NPO state pending further evaluation by Dr. Caldera Decrease LR to 50 cc/hour maintenance rate for now pending further plans Will keep NPO except for oral medications for now Will continue home dosing of metoprolol, losartan, Eliquis and Flecainide and hold other home medications for now Recheck labs in AM to monitor blood counts, electrolytes and renal function Plan - 12/19/17: Continue current antibiotics and CLD pending further evaluation by Dr. Caldera Continue to hold eliquis until trajectory more clear Stop IVF and allow clear liquid intake alone today Continue losartan and toprol; prn hydralazine ordered for systolic >150 Recheck labs in AM to monitor blood counts, electrolytes and renal function Repeat clean catch UA to ensure on occult resistant UTI driving leukocytosis Continue inpatient care at this time; still having symptoms and unable to take regular diet thus far Ambulate in the halls today with assistance
[2017-12-19] MEDS: HYDRALAZINE 10 MG TABLET PO PRN ×2 (11:13→21:30)
[2017-12-19] MEDS: ONDANSETRON 4 MG/2 ML INJECTION IVP PRN (13:06)
[2017-12-19] MEDS: METOPROLOL 5mg/5ml INJECTION IVP PRN ×2 (13:27→21:25)
[2017-12-19] MEDS ORDERED: ZOLPIDEM 5 MG TABLET PO ONE (21:10)
[2017-12-19] MEDS: SALINE FLUSH 10ml SYRINGE IVF PRN (21:26)
[2017-12-20] MEDS: MetroNIDAZOLE PB 500 MG/100 ML BAG IV SCH ×2 (03:07→17:09)
[2017-12-20] MEDS: HYDRALAZINE 10 MG TABLET PO PRN (03:37)
[2017-12-20] MEDS: ONDANSETRON 4 MG/2 ML INJECTION IVP PRN ×2 (06:22→17:25)
[2017-12-20] MEDS: METOCLOPRAMIDE 10mg/2ml INJECTION IVP PRN ×2 (08:11→14:03)
[2017-12-20] MEDS: NS 1,000 ML IV SCH (08:13)
[2017-12-20] MEDS ORDERED: DIATRIZOATE MEGLUMINE/SOD. (66%/10%) 120ml SOLN ONE (08:26)
[2017-12-20] MEDS: PANTOPRAZOLE 40 MG INJECTION IVP SCH (08:57)
[2017-12-20] MEDS ORDERED: ONDANSETRON 4 MG/2 ML INJECTION IVP ONE (09:00)
--- NOTE | 2017-12-20 09:14 | Progress Note ---
- Date 12/20/17 Subjective: Lisbeth is seen this morning following call from nursing staff. She reports having significant amount of nausea this morning. Early in the morning she was given IV Zofran followed by Santino. She did drink the PO prep for small bowel follow through. She denies having any abdominal pain currently. No chest pain or shortness of breath. BP this morning 169/76 pulse in the 60's. Objective Vital signs: Temperature 97.5 F 12/20/17 07:39 Pulse Rate 60 12/20/17 07:50 Respiratory Rate 18 12/20/17 07:39 Blood Pressure 169/76 H 12/20/17 07:39 Pulse Oximetry 94 12/20/17 07:39 Height/Weight/BMI: Height 1.52 m Weight 49.9 kg Body Mass Index 19.2 - Constitutional Present: mild distress, well nourished, well developed - Routine HEENT Exam Eye: Present: EOMI ENT: Present: mucous membranes moist, dentition normal - Routine Respiratory Exam Present: CTA bilaterally. Absent: wheezes - Routine Cardiovascular Exam Present: RRR, S1, S2. Absent: murmur - Routine Abdominal Exam Present: distended. Absent: normoactive bowel sounds (Hypoactive bowel sounds) , tenderness - Routine Extremities Exam Present: normal capillary refill - Routine Skin Exam Present: intact, dry, warm - Routine Neurological Exam Present: alert, oriented X3, CN II-XII intact, moving all extremities - Routine Lymphatic Exam Lymphatic: Absent: adenopathy - Routine Psychiatric Exam Present: normal affect, normal thought process, cooperative Results - Labs CBC & Chem 7: 12/20/17 04:02 12/20/17 04:02 Microbiology Results: Microbiology 12/19/17 13:24 Urine, Voided (Cc/notcc) Urine Culture - Preliminary Culture Initiated - Results Pending 12/17/17 10:28 Peripheral/Iv Start Blood Culture - Preliminary No Growth After 2 Days 12/17/17 10:20 Peripheral/Iv Start Blood Culture - Preliminary No Growth After 2 Days 12/17/17 06:04 Urine, Voided (Cc/notcc) Urine Culture - Final Mixed Bacterial Cheri Present -No further testing will be performed Assessment and Plan (1) Abdominal pain Current visit: Yes Status: Acute (2) Colitis Current visit: Yes Status: Acute Assessment and Plan: Assessment: Acute colitis of unclear etiology, presumed infectious source, improved with supportive care and IV antibiotics (levaquin/flagyl) --> Dr. Caldera consulted for surgical opinion, appreciate assistance, no surgical plans thus far Small bowel obstruction Acute abdominal pain with nausea and vomiting, improved with NPO/IVF Pyuria and bacteruria; assx Chronic atrial fibrillation, anticoagulated with eliqius and rate controlled with toprol/flecainide --> Sinus currently, eliquis on hold Hypertension, controlled outaptient --> Losartan 100 mg daily, toprol XL 50 BID is typical regimen Hypokalemia Hyponatremia Plan: Will work on better control of nausea Gave a one time additional dose of IV Zofran 4 mg. Continue with Reglan 10mg PRN. Will also add scopolamine patch topically Could consider IV Phenergan - however would use has last resort as this may cause encephalopathy Small bowel follow through scheduled for today Hypokalemia- Will give IV K boluses x4 bags for replacement IV Levaquin and Flagyl for antimicrobial coverage of Colitis Eliquis remains on hold Case discussed with attending, Dr Wylie DVT Prophylaxis: SCD's, Eliquis (currenlty held, last dose 12/18) GI Prophylaxis: Protonix Resuscitation Status: Full Code - Physician Narrative Physician: Reina Wylie MD Narrative: Date: 12/20/17 Time: 1540 I have independently evaluated and examined this patient. I reviewed the chart, the patient's history, and the PUMPER GAGER APPRENTICE/PA's documented findings as above. We discussed and formulated the assessment and plan as above with additions as below: Mrs. Keyes was seen with her at bedside at approximately 2 PM this afternoon after completing the small bowel follow-through study. She had a small amount of emesis shortly after drinking the Gastrografin and reported that it made her feel very nauseated. She denies having abdominal pain. She also reports having a bowel movement this morning. Nursing described feculent emesis earlier today with second episode of emesis this afternoon following completion of SBFT. Generalized pallor, respirations nonlabored Abdomen soft, moderately distended, nontender, sparse bowel sounds Upper GI/small bowel study reviewed by myself-small bowel loops are dilated and Gastrografin remains concentrated in the stomach with minimal progress at 3-1/2 hours. Radiology reports some contrast reaches the jejunum at 3-1/2 but finalized study is consistent with SBO. Refractory nausea present today, feculent emesis 2-NG replaced to low intermittent suction; d/w Dr. Caldera. PICC line to be placed for TPN. Have discussed with nursing on several occasions. Blood pressure persistently elevated-IV hydralazine ordered x 1 to assess response. Hospital Course Summary Disclaimer: The visit summary below is not to be considered part of the above Progress Note. Hospital Course: Plan - 12/17/17: Admit, observation status Will consult Dr. Caldera for surgical evaluation and expertise. Will initiate Levaquin 500mg IV daily as well as Flagyl 500mg TID for treatment of suspected colitis as well as UTI. Will obtain blood cultures prior to treatment for complete evaluation. Lactate on admission was 1.0. Will keep NPO except for oral medications. Medication list verified with Dr. Dyer - current computer reconciliation is incorrect. Current home medications are as follows: * HCTZ 25mg QAM * Metoprolol succinate ER 50mg BID * Losartan 100mg daily * Citalopram 10mg daily * Fish oil 1000mg BID * Flax oil - 2 tbs over cereal daily * Calcium + D 600-200 mg-unit - 1 tab BID * Vitamin C - 1 tab BID * Eliquis 2.5mg BID * Flecainide 50mg - 2 tabs (100mg) BID Will continue home dosing of metoprolol, losartan, Eliquis and Flecainide and hold other home medications. Recheck labs in AM to monitor blood counts, electrolytes and renal function. Upon discharge, patient's care will be returned to her PCP, Dr. Dyer. Patient requests to be a FULL CODE. 12/18/17: Continue current antibiotics and NPO state pending further evaluation by Dr. Caldera Decrease LR to 50 cc/hour maintenance rate for now pending further plans Will keep NPO except for oral medications for now Will continue home dosing of metoprolol, losartan, Eliquis and Flecainide and hold other home medications for now Recheck labs in AM to monitor blood counts, electrolytes and renal function 12/19/17: Continue current antibiotics and CLD pending further evaluation by Dr. Caldera Continue to hold eliquis until trajectory more clear Stop IVF and allow clear liquid intake alone today Continue losartan and toprol; prn hydralazine ordered for systolic >150 Recheck labs in AM to monitor blood counts, electrolytes and renal function Repeat clean catch UA to ensure on occult resistant UTI driving leukocytosis Continue inpatient care at this time; still having symptoms and unable to take regular diet thus far Ambulate in the halls today with assistance 12/20/17: Increased nausea while preparing for SBFT. Added reglan and scopolamine patch. Replace IV potassium. Eliquis remains on hold. SBFT c/w small bowel obstruction; Gastrografin remained in stomach and proximal jejunum at 3.5 hours. Refractory nausea present today, feculent emesis 2-NG replaced to low intermittent suction; d/w Dr. Caldera. PICC line to be placed for TPN. Have discussed with nursing on several occasions. Blood pressure persistently elevated-IV hydralazine ordered x 1 to assess response.
[2017-12-20] MEDS: FLECAINIDE 100 MG TABLET PO SCH ×2 (09:24→21:15)
[2017-12-20] MEDS: LEVOFLOXACIN PB 500 MG/100 ML BAG IV SCH (09:25)
[2017-12-20] MEDS: LOSARTAN 100 MG TABLET PO SCH (09:25)
[2017-12-20] MEDS ORDERED: SCOPOLAMINE 1mg/3 days PATCH (Eq. 1.5 Patch) TD SCH (09:30)
--- NOTE | 2017-12-20 09:40 | Progress Note ---
DATE OF VISIT 12/19/2017 REASON FOR VISIT Follow enteritis. SUBJECTIVE Lisbeth was tolerating her clear liquid diet well, but this afternoon developed vomiting. After her vomiting, she feels like she is doing well and is not requiring pain medication. OBJECTIVE VITAL SIGNS: Afebrile with stable vitals on room air. She is slightly hypertensive. GENERAL: The patient is awake and alert, in no acute distress. ABDOMEN: Soft, minimally tender in the right lower quadrant. Her abdominal pain is improved. She does not have any guarding, rebound, or distention. LABORATORY DATA White blood cell count increased slightly to 14.6 this morning. IMAGING KUB following her episode of vomiting still shows some dilated loops of small bowel. IMPRESSION 1. Enteritis of uncertain etiology. 2. Ileus versus obstruction related to enteritis. 3. Anticoagulation with Eliquis - currently on hold. 4. Chronic atrial fibrillation. PLAN 1. Continue n.p.o. for now with IV fluids. 2. Small bowel follow-through tomorrow to see if she does have an obstruction. 3. Hold Eliquis until the clinical situation is more clear. MADAI
[2017-12-20] MEDS: LIDOCAINE 1% INJ 10 MG, POTASSIUM CHLORIDE INJ 10 MEQ in NS 100 ML IV SCH ×4 (10:47→14:36)
--- NOTE | 2017-12-20 11:05 | XRay Report ---
EXAM: XR KUB w upright DICTATION LOCATION: [facility] INDICATION: POSSILBE SBO COMPARISON STUDY: None available. FINDINGS: Abdomen: The small bowel loops remain dilated though slightly diminished in size from one day earlier. The findings remain suspicious for small bowel obstruction. There is no free intraperitoneal air. No abnormal radiopacities overlying the abdomen. The lung bases are clear. Skeletal Structures: The visualized skeletal structures are within normal limits for the patient's age. IMPRESSION: 1. Dilated gas containing small bowel loops slightly diminished in size from one day earlier. The findings remain suspicious for small bowel obstruction. There is no free intraperitoneal air demonstrated. .
[2017-12-20] MEDS: METOPROLOL 5mg/5ml INJECTION IVP PRN (11:23)
--- NOTE | 2017-12-20 14:28 | XRay Report ---
EXAM: XR small bowel follow through LOCATION OF DICTATION: [facility] HISTORY: eval ileus vs obstruction COMPARISON: No prior studies available for comparison. FINDINGS: The research and development technician view demonstrated moderately distended gas containing small bowel loops suggestive of obstruction. There is delayed transit of barium through the dilated small bowel loops which extends to the duodenum and proximal duodenum and 3 hours and 30 minutes compatible with small bowel obstruction. There is no free intraperitoneal air demonstrated. There is positive air within the colonic bowel loops. Moderate residual contrast demonstrated within the stomach. Impression Small bowel follow through demonstrates distended small bowel loops with delayed transit of barium reaching the proximal jejunum in 3 hours and 30 minutes compatible with small bowel obstruction. .
[2017-12-20] MEDS ORDERED: HYDRALAZINE 20 MG/ML INJECTION IVP ONE (15:28)
[2017-12-20] MEDS: SALINE FLUSH 10ml SYRINGE IVF PRN (15:33)
[2017-12-20] MEDS ORDERED: HYDRALAZINE 20 MG/ML INJECTION IVP PRN (16:06)
[2017-12-20] MEDS ORDERED: SORE THROAT SPRAY 20ml PO PRN (16:40)
[2017-12-20] MEDS: ZOLPIDEM 5 MG TABLET PO PRN (21:15)
[2017-12-21] MEDS: MetroNIDAZOLE PB 500 MG/100 ML BAG IV SCH ×3 (01:00→17:04)
[2017-12-21] MEDS: NS 1,000 ML IV SCH ×2 (06:12→09:58)
[2017-12-21] MEDS: LIDOCAINE 1% INJ 10 MG, POTASSIUM CHLORIDE INJ 10 MEQ in NS 100 ML IV SCH ×3 (06:37→11:12)
[2017-12-21] MEDS ORDERED: TPN - PHARMACY CONSULT MC ONE (09:24)
[2017-12-21] MEDS: FLECAINIDE 100 MG TABLET PO SCH ×2 (09:59→20:41)
[2017-12-21] MEDS: LOSARTAN 100 MG TABLET PO SCH (09:59)
[2017-12-21] MEDS: PANTOPRAZOLE 40 MG INJECTION IVP SCH (09:59)
--- NOTE | 2017-12-21 11:29 | XRay Report ---
Indication: Follow obstruction PROCEDURE: XR abdomen 2V: Encounter: Initial Comparison: Radiographs from yesterday Findings: New nasogastric tube in place. This is coiled back on itself with the tip projecting over the lower thoracic esophagus. Dilated small bowel loops are again seen, some of which contain contrast material. These measure 4.7 cm in diameter. There is no definite colonic contrast seen. There is residual contrast in the distended stomach. Impression: Nasogastric tube is kinked in the lower esophagus. Recommend repositioning or replacement. Continued findings of high-grade small bowel obstruction without significant change. .
--- NOTE | 2017-12-21 12:44 | XRay Report ---
Indication: ng placement PROCEDURE: XR KUB: Encounter: Initial Comparison: December 21, 2017 at 1107 Findings: The nasogastric tube has been advanced and now appears to be kinked within the fundus and cardia region of the stomach. There is acute angulation present with the tip projecting near the expected GE junction. Appearance of the abdomen is otherwise unchanged from the recent comparison. Impression: The nasogastric tube has been advanced and now projects over the stomach, however there is a persistent kink. Recommend correlation with tube function. .
[2017-12-21] MEDS: LEVOFLOXACIN PB 500 MG/100 ML BAG IV SCH (13:10)
[2017-12-21] MEDS ORDERED: IOHEXOL 300mg/ml 75ml INJECTION ONE (13:39)
[2017-12-21] MEDS ORDERED: SALINE FLUSH 10ml SYRINGE ONE (13:39)
--- NOTE | 2017-12-21 14:31 | CT Scan Report ---
Indication: Re-evaluate due to obstruction PROCEDURE: CT abdomen pelvis w con: Encounter: Initial Comparison: KUBs from earlier today and CT abdomen/pelvis dated December 17, 2017 Technique: Axial CT images were performed through the abdomen and pelvis after the administration of intravenous contrast. Coronal and sagittal two-dimensional reformats. Automated Exposure Control and Iterative Reconstruction dose reducing techniques were utilized. Contrast: Omnipaque 300 67 mL Findings: Small bilateral pleural effusions with lower lobe compressive atelectasis. Nasogastric tube in place with the tip terminating in the fundus of the stomach. The liver is stable with mild periportal edema. No liver mass or bile duct dilatation. Vicarious excretion of contrast noted within the gallbladder. The spleen is diminutive and unchanged. The pancreas and adrenal glands are stable. Kidneys are normal. There are dilated loops of proximal small bowel filled with oral contrast measuring up to 4.4 cm in diameter in the upper pelvis. There is transition to decompressed small bowel in the right pelvis with a severely thick-walled 15 cm long segment of bowel, best seen on axial images 47 through 58. There is oral contrast seen beyond this segment of wall thickening into more normal caliber loops of mid to distal ileum. There is contrast material present within the colon to the level of the rectum. Small amount of free pelvic fluid. Colon is totally decompressed. Bone windows show degenerative change in the spine. Impression: 1. High-grade partial small bowel obstruction in the proximal to mid ileum of the right lower quadrant. This involves an approximately 15 cm long segment of thick-walled small bowel that could be due to ischemic, infectious or inflammatory enteritis. The amount of mesenteric edema present has significantly improved since the prior study and there is oral contrast seen throughout small and large bowel to the level of the rectum. 2. Small pleural effusions and small volume ascites. .
--- NOTE | 2017-12-21 16:52 | Progress Note ---
- Date 12/21/17 Objective Vital signs: Temperature 97.5 F 12/21/17 14:13 Pulse Rate 78 12/21/17 14:13 Respiratory Rate 18 12/21/17 14:13 Blood Pressure 142/51 H 12/21/17 14:13 Pulse Oximetry 98 12/21/17 14:13 Rhythm: Normal Sinus Rhythm Height/Weight/BMI: Height 1.52 m Weight 49.1 kg Body Mass Index 19.2 Results - Labs CBC & Chem 7: 12/21/17 04:24 12/21/17 11:19 Microbiology Results: Microbiology 12/19/17 13:24 Urine, Voided (Cc/notcc) Urine Culture - Final No Growth After 2 Days 12/17/17 10:28 Peripheral/Iv Start Blood Culture - Preliminary No Growth After 4 Days 12/17/17 10:20 Peripheral/Iv Start Blood Culture - Preliminary No Growth After 4 Days 12/17/17 06:04 Urine, Voided (Cc/notcc) Urine Culture - Final Mixed Bacterial Cheri Present -No further testing will be performed Assessment and Plan (1) Abdominal pain Current visit: Yes Status: Acute (2) Colitis Current visit: Yes Status: Acute Assessment and Plan: Assessment: Acute colitis of unclear etiology, presumed infectious source, improved with supportive care and IV antibiotics (levaquin/flagyl) --> Dr. Caldera consulted for surgical opinion, appreciate assistance, no surgical plans thus far Small bowel obstruction Acute abdominal pain with nausea and vomiting, improved with NPO/IVF Pyuria and bacteruria; assx Chronic atrial fibrillation, anticoagulated with eliqius and rate controlled with toprol/flecainide --> Sinus currently, eliquis on hold Hypertension, controlled outaptient --> Losartan 100 mg daily, toprol XL 50 BID is typical regimen Hypokalemia Hyponatremia Plan: Will work on better control of nausea Gave a one time additional dose of IV Zofran 4 mg. Continue with Reglan 10mg PRN. Will also add scopolamine patch topically Could consider IV Phenergan - however would use has last resort as this may cause encephalopathy Small bowel follow through scheduled for today Hypokalemia- Will give IV K boluses x4 bags for replacement IV Levaquin and Flagyl for antimicrobial coverage of Colitis Eliquis remains on hold Case discussed with attending, Dr Inessa DVT Prophylaxis: SCD's, Michellequmoriah (currenlty held, last dose 12/18) GI Prophylaxis: Protonix Resuscitation Status: Full Code - Physician Narrative Narrative: Date: 12/20/17 Time: 1540 I have independently evaluated and examined this patient. I reviewed the chart, the patient's history, and the TEEN COUNSELOR/PA's documented findings as above. We discussed and formulated the assessment and plan as above with additions as below: Mrs. Keyes was seen with her at bedside at approximately 2 PM this afternoon after completing the small bowel follow-through study. She had a small amount of emesis shortly after drinking the Gastrografin and reported that it made her feel very nauseated. She denies having abdominal pain. She also reports having a bowel movement this morning. Nursing described feculent emesis earlier today with second episode of emesis this afternoon following completion of SBFT. Generalized pallor, respirations nonlabored Abdomen soft, moderately distended, nontender, sparse bowel sounds Upper GI/small bowel study reviewed by myself-small bowel loops are dilated and Gastrografin remains concentrated in the stomach with minimal progress at 3-1/2 hours. Radiology reports some contrast reaches the jejunum at 3-1/2 but finalized study is consistent with SBO. Refractory nausea present today, feculent emesis 2-NG replaced to low intermittent suction; d/w Dr. Caldera. PICC line to be placed for TPN. Have discussed with nursing on several occasions. Blood pressure persistently elevated-IV hydralazine ordered x 1 to assess response. Hospital Course Summary Disclaimer: The visit summary below is not to be considered part of the above Progress Note. Hospital Course: Plan - 12/17/17: Admit, observation status Will consult Dr. Caldera for surgical evaluation and expertise. Will initiate Levaquin 500mg IV daily as well as Flagyl 500mg TID for treatment of suspected colitis as well as UTI. Will obtain blood cultures prior to treatment for complete evaluation. Lactate on admission was 1.0. Will keep NPO except for oral medications. Medication list verified with Dr. Dyer - current computer reconciliation is incorrect. Current home medications are as follows: * HCTZ 25mg QAM * Metoprolol succinate ER 50mg BID * Losartan 100mg daily * Citalopram 10mg daily * Fish oil 1000mg BID * Flax oil - 2 tbs over cereal daily * Calcium + D 600-200 mg-unit - 1 tab BID * Vitamin C - 1 tab BID * Eliquis 2.5mg BID * Flecainide 50mg - 2 tabs (100mg) BID Will continue home dosing of metoprolol, losartan, Eliquis and Flecainide and hold other home medications. Recheck labs in AM to monitor blood counts, electrolytes and renal function. Upon discharge, patient's care will be returned to her PCP, Dr. Dyer. Patient requests to be a FULL CODE. 12/18/17: Continue current antibiotics and NPO state pending further evaluation by Dr. Caldera Decrease LR to 50 cc/hour maintenance rate for now pending further plans Will keep NPO except for oral medications for now Will continue home dosing of metoprolol, losartan, Eliquis and Flecainide and hold other home medications for now Recheck labs in AM to monitor blood counts, electrolytes and renal function 12/19/17: Continue current antibiotics and CLD pending further evaluation by Dr. Caldera Continue to hold eliquis until trajectory more clear Stop IVF and allow clear liquid intake alone today Continue losartan and toprol; prn hydralazine ordered for systolic >150 Recheck labs in AM to monitor blood counts, electrolytes and renal function Repeat clean catch UA to ensure on occult resistant UTI driving leukocytosis Continue inpatient care at this time; still having symptoms and unable to take regular diet thus far Ambulate in the halls today with assistance 12/20/17: Increased nausea while preparing for SBFT. Added reglan and scopolamine patch. Replace IV potassium. Eliquis remains on hold. SBFT c/w small bowel obstruction; Gastrografin remained in stomach and proximal jejunum at 3.5 hours. Refractory nausea present today, feculent emesis 2-NG replaced to low intermittent suction; d/w Dr. Caldera. PICC line to be placed for TPN. Have discussed with nursing on several occasions. Blood pressure persistently elevated-IV hydralazine ordered x 1 to assess response.
--- NOTE | 2017-12-21 17:04 | Progress Note ---
- Date 12/21/17 Subjective: Lisbeth was seen shortly after her left PICC line was inserted. She stated that she feels good today -- no nausea or vomiting and denies abdominal pain/ bloating. She feels unsteady however when she's on her feet. She denies any SOA. She believes that the NGT to suction is helpful. Family also present - asked many questions about starting TPN and treatment plans. Objective Vital signs: Temperature 97.5 F 12/21/17 14:13 Pulse Rate 78 12/21/17 14:13 Respiratory Rate 18 12/21/17 14:13 Blood Pressure 142/51 H 12/21/17 14:13 Pulse Oximetry 98 12/21/17 14:13 Rhythm: Normal Sinus Rhythm Height/Weight/BMI: Height 1.52 m Weight 49.1 kg Body Mass Index 19.2 - Constitutional Present: no acute distress, well nourished, well developed, thin - Routine HEENT Exam Head: Present: normocephalic Eye: Present: PERRL. Absent: conjunctival icterus, scleral injection Comments: NGT left nare - Routine Respiratory Exam Present: decreased breath sounds (slightly in bases), CTA bilaterally - Routine Cardiovascular Exam Present: RRR, S1, S2 - Routine Abdominal Exam Present: soft, distended (mild). Absent: normoactive bowel sounds (slightly hypoactive) - Routine Extremities Exam Present: no edema - Routine Musculoskeletal Exam Musculoskeletal: Present: no clubbing or cyanosis - Routine Skin Exam Present: intact, dry, warm - Routine Neurological Exam Present: alert, oriented X3, normal speech - Routine Psychiatric Exam Present: normal affect, normal thought process, cooperative Results - Labs CBC & Chem 7: 12/21/17 04:24 12/21/17 11:19 Microbiology Results: Microbiology 12/19/17 13:24 Urine, Voided (Cc/notcc) Urine Culture - Final No Growth After 2 Days 12/17/17 10:28 Peripheral/Iv Start Blood Culture - Preliminary No Growth After 4 Days 12/17/17 10:20 Peripheral/Iv Start Blood Culture - Preliminary No Growth After 4 Days 12/17/17 06:04 Urine, Voided (Cc/notcc) Urine Culture - Final Mixed Bacterial Cheri Present -No further testing will be performed Assessment and Plan (1) Abdominal pain Current visit: Yes Status: Acute (2) Colitis Current visit: Yes Status: Acute Assessment and Plan: Assessment: Acute colitis of unclear etiology, presumed infectious source, improved with supportive care and IV antibiotics (levaquin/flagyl) --> Dr. Caldera consulted for surgical opinion Small bowel obstruction Acute abdominal pain with nausea and vomiting, improved with NPO/IVF Pyuria and bacteruria; assx Chronic atrial fibrillation, anticoagulated with eliqius and rate controlled with toprol/flecainide --> Sinus currently, eliquis on hold Hypertension, controlled outaptient --> Losartan 100 mg daily, toprol XL 50 BID is typical regimen Hypokalemia Hyponatremia Plan: N/V much improved. Over 2L has been suctioned via NGT since midnight. PICC line inserted to initiate TPN. Will stop NS to help prevent fluid overload. K improved to 3.5 after bolus yesterday. Na improved as well. WBC up slightly to 12.7; continue Levaquin and Flagyl BP improving; continue IV hydralazine, last dose given early this morning (442) CT abdomen/pelvis done today: Impression: 1. High-grade partial small bowel obstruction in the proximal to mid ileum of the right lower quadrant. This involves an approximately 15 cm long segment of thick-walled small bowel that could be due to ischemic, infectious or inflammatory enteritis. The amount of mesenteric edema present has significantly improved since the prior study and there is oral contrast seen throughout small and large bowel to the level of the rectum. 2. Small pleural effusions and small volume ascites. DVT Prophylaxis: SCD's, Eliquis (currenlty held, last dose 12/18) GI Prophylaxis: Protonix Resuscitation Status: Full Code - Physician Narrative Physician: Reina Wylie MD Narrative: Date: 12/21/17 Time: 1809 I have independently evaluated and examined this patient. I reviewed the chart, the patient's history, and the FILTRATION SUPERVISOR/PA's documented findings as above. We discussed and formulated the assessment and plan as above with additions as below: Mrs. Keyes has been seen several times throughout the day. She denies nausea and vomiting today but had an episode of emesis yesterday following placement of NG tube. She denies lightheadedness and reports that she is voiding without difficulty. Patient is alert and has generalized pallor Abdomen is soft and nontender; NG to suction. KUBs this morning reviewed by myself and with nursing-NG initially kinked/ retroverted in the esophagus. NG advanced personally 3 inches with improved output although remained in the distal esophagus and subsequently advanced further. CT abdomen/pelvis also reviewed by myself and discussed with Dr. Caldera- study consistent with high-grade partial obstruction with an area of thickened small bowel reported to be proximal or mid ileum by radiology-etiology uncertain. 1500 mL out with NG suction today following repositioning. Benign abdomen on examination and patient has had no bloody diarrhea since admission to suggest ischemic colitis. Given length of abnormal segment of bowel seen on CT it's my opinion that surgery will be needed for management. Dr. Caldera and I discussed this and the option was subsequently discussed with the patient and her family; surgery is tentatively being planned for tomorrow. Eliquis remains on hold. Hospital Course Summary Disclaimer: The visit summary below is not to be considered part of the above Progress Note. Hospital Course: Plan - 12/17/17: Admit, observation status Will consult Dr. Caldera for surgical evaluation and expertise. Will initiate Levaquin 500mg IV daily as well as Flagyl 500mg TID for treatment of suspected colitis as well as UTI. Will obtain blood cultures prior to treatment for complete evaluation. Lactate on admission was 1.0. Will keep NPO except for oral medications. Medication list verified with Dr. Dyer - current computer reconciliation is incorrect. Current home medications are as follows: * HCTZ 25mg QAM * Metoprolol succinate ER 50mg BID * Losartan 100mg daily * Citalopram 10mg daily * Fish oil 1000mg BID * Flax oil - 2 tbs over cereal daily * Calcium + D 600-200 mg-unit - 1 tab BID * Vitamin C - 1 tab BID * Eliquis 2.5mg BID * Flecainide 50mg - 2 tabs (100mg) BID Will continue home dosing of metoprolol, losartan, Eliquis and Flecainide and hold other home medications. Recheck labs in AM to monitor blood counts, electrolytes and renal function. Upon discharge, patient's care will be returned to her PCP, Dr. Dyer. Patient requests to be a FULL CODE. 12/18/17: Continue current antibiotics and NPO state pending further evaluation by Dr. Caldera Decrease LR to 50 cc/hour maintenance rate for now pending further plans Will keep NPO except for oral medications for now Will continue home dosing of metoprolol, losartan, Eliquis and Flecainide and hold other home medications for now Recheck labs in AM to monitor blood counts, electrolytes and renal function 12/19/17: Continue current antibiotics and CLD pending further evaluation by Dr. Caldera Continue to hold eliquis until trajectory more clear Stop IVF and allow clear liquid intake alone today Continue losartan and toprol; prn hydralazine ordered for systolic >150 Recheck labs in AM to monitor blood counts, electrolytes and renal function Repeat clean catch UA to ensure on occult resistant UTI driving leukocytosis Continue inpatient care at this time; still having symptoms and unable to take regular diet thus far Ambulate in the halls today with assistance 12/20/17: Increased nausea while preparing for SBFT. Added reglan and scopolamine patch. Replace IV potassium. Eliquis remains on hold. SBFT c/w small bowel obstruction; Gastrografin remained in stomach and proximal jejunum at 3.5 hours. Refractory nausea present today, feculent emesis 2-NG replaced to low intermittent suction; d/w Dr. Caldera. PICC line to be placed for TPN. Have discussed with nursing on several occasions. Blood pressure persistently elevated-IV hydralazine ordered x 1 to assess response. 12/21/17: N/V much improved. Over 2L has been suctioned via NGT since midnight. PICC line inserted to initiate TPN. Will stop NS to help prevent fluid overload. K improved to 3.5 after bolus yesterday. Na improved as well. WBC up slightly to 12.7; continue Levaquin and Flagyl BP improving; continue IV hydralazine, last dose given early this morning (0443) CT abdomen/pelvis done today: Impression: 1. High-grade partial small bowel obstruction in the proximal to mid ileum of the right lower quadrant. This involves an approximately 15 cm long segment of thick-walled small bowel that could be due to ischemic, infectious or inflammatory enteritis. The amount of mesenteric edema present has significantly improved since the prior study and there is oral contrast seen throughout small and large bowel to the level of the rectum. 2. Small pleural effusions and small volume ascites.
--- NOTE | 2017-12-21 18:10 | Pharmacy Consult-TPN/PPN ---
Pharmacy Consult-TPN/PPN - Laboratory Information Chemistry Turbidity < 20 (0-20) 12/21/17 11:19 Sodium 141 MEQ/L (136-146) 12/21/17 11:19 Potassium 3.5 MEQ/L (3.6-5) L D 12/21/17 11:19 Chloride 104 MEQ/L (98-107) D 12/21/17 11:19 Carbon Dioxide 25 MEQ/L (22-30) D 12/21/17 11:19 Anion Gap 12 meq/L (5-15) 12/21/17 11:19 BUN 18.0 MG/DL (7-17) H 12/21/17 11:19 Creatinine 0.6 mg/dL (0.7-1.2) L D 12/21/17 11:19 Estimated Creat Clear 30 mL/min (>50) 12/21/17 11:19 GFR Calculation 95 mL/min (>60) 12/21/17 11:19 BUN/Creatinine Ratio 30 RATIO (6-26) H 12/21/17 11:19 Glucose 98 MG/DL (65-110) 12/21/17 11:19 Calculated Osmolality 273 MOSM/KG (261-280) 12/21/17 11:19 Calcium 8.4 MG/DL (8.4-10.2) D 12/21/17 11:19 Phosphorus 3.0 MG/DL (2.5-4.5) 12/20/17 04:02 Magnesium 1.8 MG/DL (1.6-2.3) 12/20/17 04:02 Total Bilirubin 0.30 MG/DL (0.20-1.30) 12/17/17 04:04 Icterus Index < 2 (0-7) 12/21/17 11:19 AST 22 U/L (14-36) 12/17/17 04:04 ALT 14 U/L (1-35) 12/17/17 04:04 Alkaline Phosphatase 52 U/L (38-126) 12/17/17 04:04 Lactate Dehydrogenase 432 U/L (313-618) 12/17/17 06:22 C-Reactive Protein 26.9 mg/L (0-9) H 12/18/17 04:19 Total Protein 7.1 g/dL (6.3-8.2) 12/17/17 04:04 Albumin 3.0 g/dL (3.5-5.0) L 12/20/17 04:02 Globulin 2.9 G/DL (2.4-3.6) 12/17/17 04:04 Albumin/Globulin Ratio 1.4 RATIO (1.1-2.2) 12/17/17 04:04 Lipase 115 U/L (23-300) 12/17/17 04:04 Plasma Lactate 1.0 MMOL/L (0.6-2.2) 12/17/17 06:22 Procalcitonin < 0.05 NG/ML 12/17/17 10:20 Specimen Hemolysis < 15 (0-25) 12/21/17 11:19 Intake and Output 12/20/17 12/21/17 12/22/17 06:59 06:59 06:59 Intake Total 1875.417 / 5106.545 5831.25 / 1731.25 815 / 815 Output Total 675 / 675 1600 / 1600 1500 / 1500 Balance 1200.417 / 1200.417 131.25 / 131.25 -685 / -685 Weight 47.5 kg 49.9 kg 49.1 kg Intake: IV 1535.417 / 1794.532 8082.25 / 1731.25 815 / 815 Levofloxacin Pb 500 mg In 100 100 / 100 100 / 100 100 / 100 ml @ 100 mls/hr IV Q24H [facility] Rx# :[id number] Lidocaine 1% Inj 10 mg 400 / 400 300 / 300 Potassium Chloride Inj 10 meq In Ns 100 ml @ 100 mls/hr IV . Q1H [facility] Rx#:[id number] MetroNIDAZOLE PB 500 mg In 100 300.000 / 300.000 200 / 200 100 / 100 ml @ 100 mls/hr IV Q8H [facility] Rx#: [id number] Ns 1,000 ml @ 75 mls/hr IV . 251.667 / 787.932 4184.25 / 1031.25 315 / 315 [id number] [facility] Rx#:[id number] Oral 340 / 340 Output: Urine 475 / 475 250 / 250 Emesis 200 / 200 450 / 450 Gastric Drainage 900 / 900 1500 / 1500 Left Nare 900 / 900 1500 / 1500 Other: Urine Appearance Clear Urine Color Tea Colored Tea Colored Urine Odor Normal Normal Stool Color Brown Blood Tinged Stool Consistency Soft Formed Emesis Description Bile Fecal Matter Size of Bowel Movement Small # Voids 1 1 # Bowel Movements 1 1 # Unmeasured Emesis Episodes 1 - Consult Information TPN CONSULT: (INITIAL) 87 yr old female 5' 0" 49 kg requiring TPN. PICC line placed. Calculated caloric needs based on her BEE are 1500 kcal. Calculated protein needs are between 50-100 gm protein daily. TPN provides 96 gm at the rate of 80 ml/hr. TPN provides 1305 non-protein kcal at 80 ml/hr Lipids provide 200 kcal. Patients fluid requirements are 2100 ml/day. TPN @ 80 ml/hr = 1920 ml and 100 ml from the lipids. Pharmacy will monitor the patient's electrolytes and adjust as needed. Tabatha Santos, PharmD
[2017-12-21] MEDS: SALINE FLUSH 10ml SYRINGE IVF PRN (19:36)
[2017-12-21] MEDS: FAT EMULSION 20% 100 ML IV SCH (19:37)
[2017-12-21] MEDS ORDERED: CLINIMIX-E 5%/20% TPN - STANDARD FORMULA IV SCH (20:00)
--- NOTE | 2017-12-21 20:32 | Progress Note ---
DATE OF VISIT 12/20/2017 REASON FOR VISIT Follow enteritis. SUBJECTIVE Lisbeth had developed a few episodes of vomiting. Given her dilated loops on abdominal x-rays, a small bowel follow-through was ordered. This showed findings consistent with a small bowel obstruction with passage of contrast only to the jejunum. An NG tube has now been placed given her two episodes of vomiting. She denies any abdominal pain but she is fixated on the discomfort from the NG tube. OBJECTIVE VITAL SIGNS: Afebrile with stable vitals on room air. GENERAL: The patient is awake and alert. She is in mild distress related to the NG tube. ABDOMEN: Soft, nontender, minimally distended. IMAGING Small bowel follow-through was personally reviewed as well as by report. LABORATORY DATA White blood cell count has decreased to 12.1 this morning. IMPRESSION 1. Small bowel obstruction of uncertain etiology. 2. Enteritis - this may be related to her obstruction or the cause of her obstruction. 3. Anticoagulation with Eliquis - currently on hold. 4. Chronic atrial fibrillation. PLAN 1. Continue NG tube decompression. 2. Bowel rest. 3. Since her nutritional intake has been minimal I would recommend placement of a PICC line and initiation of TPN. 4. Continue to hold Eliquis given the strange clinical situation. [facility]
[2017-12-21] MEDS: ZOLPIDEM 5 MG TABLET PO PRN (20:41)
[2017-12-22] MEDS: MetroNIDAZOLE PB 500 MG/100 ML BAG IV SCH ×2 (00:04→11:16)
[2017-12-22] MEDS: SALINE FLUSH 10ml SYRINGE IVF PRN ×3 (04:00→05:39)
[2017-12-22] MEDS: LIDOCAINE 1% INJ 10 MG, POTASSIUM CHLORIDE INJ 10 MEQ in NS 100 ML IV SCH ×4 (05:38→09:22)
--- NOTE | 2017-12-22 09:54 | Progress Note ---
- Date 12/22/17 Subjective: Lisbeth was seen in follow up this morning. She is resting in bed with her family at her bedside. She complains of the irritation of the NG tube, however, recognizes its importance. He denies having any abdominal pain or nausea currently. She does inquire about timing of scheduled procedure for later today. Remains nothing by mouth. Potassium decreased to 2.5 this morning. Objective Vital signs: Temperature 97.7 F 12/22/17 08:00 Pulse Rate 85 12/22/17 08:00 Respiratory Rate 20 12/22/17 03:38 Blood Pressure 156/92 H 12/22/17 08:00 Pulse Oximetry 97 12/22/17 08:00 Rhythm: Normal Sinus Rhythm Height/Weight/BMI: Height 1.52 m Weight 49.1 kg Body Mass Index 19.2 - Constitutional Present: no acute distress, well nourished, well developed - Routine HEENT Exam Eye: Present: EOMI ENT: Present: mucous membranes moist, dentition normal - Routine Respiratory Exam Present: CTA bilaterally. Absent: wheezes - Routine Cardiovascular Exam Present: RRR, S1, S2. Absent: murmur - Routine Abdominal Exam Present: soft, non distended. Absent: normoactive bowel sounds (hypoactive), tenderness - Routine Extremities Exam Present: normal capillary refill - Routine Skin Exam Present: intact, dry, warm - Routine Neurological Exam Present: alert, oriented X3, CN II-XII intact - Routine Lymphatic Exam Lymphatic: Absent: adenopathy - Routine Psychiatric Exam Present: normal affect Results - Labs CBC & Chem 7: 12/22/17 04:06 12/22/17 10:01 Microbiology Results: Microbiology 12/19/17 13:24 Urine, Voided (Cc/notcc) Urine Culture - Final No Growth After 2 Days 12/17/17 10:28 Peripheral/Iv Start Blood Culture - Preliminary No Growth After 4 Days 12/17/17 10:20 Peripheral/Iv Start Blood Culture - Preliminary No Growth After 4 Days 12/17/17 06:04 Urine, Voided (Cc/notcc) Urine Culture - Final Mixed Bacterial Cheri Present -No further testing will be performed Assessment and Plan (1) Abdominal pain Current visit: Yes Status: Acute (2) Colitis Current visit: Yes Status: Acute Assessment and Plan: Assessment: Acute colitis of unclear etiology, presumed infectious source, improved with supportive care and IV antibiotics (levaquin/flagyl) --> Dr. Caldera consulted for surgical opinion Small bowel obstruction Acute abdominal pain with nausea and vomiting, improved with NPO/IVF Pyuria and bacteruria; assx Chronic atrial fibrillation, anticoagulated with eliqius and rate controlled with toprol/flecainide --> Sinus currently, eliquis on hold Hypertension, controlled outaptient --> Losartan 100 mg daily, toprol XL 50 BID is typical regimen Hypokalemia Hyponatremia Plan: Remains NPO with NG tube intact Planned for exploratory laparotomy with small bowel resection under the care of Dr. Caldera Continue on TPN via PICC line Will add Accuchecks given fasting BGM this morning was 199. Hypokalemia this morning down to 2.5. Patient given IV potassium supplementation. Will likely require more later today Continue Levaquin and Flagyl, WBC count 10.2 DVT Prophylaxis: SCD's, Eliquis (currenlty held, last dose 12/18) GI Prophylaxis: Protonix Resuscitation Status: Full Code - Physician Narrative Physician: Reina Wylie MD Narrative: Date: 12/20/17 Time: 1750 I have independently evaluated and examined this patient. I reviewed the chart, the patient's history, and the [employer]/PA's documented findings as above. We discussed and formulated the assessment and plan as above with additions as below: Mrs. Aguila was seen prior to surgery and again postoperatively. She denied abdominal pain or nausea preop and indicated adequate pain control postoperatively. NAD, alert, NG in place Respirations nonlabored Abdomen soft, nontender Telemetry reviewed postoperatively-atrial flutter, rate approximately 110 Surgical findings reviewed with Dr. Caldera-SBO secondary to strangulated internal hernia; s/p release of internal hernia and segmental small bowel resection Repeat potassium this morning 3.4 after 30 mEq IV potassium, additional 20 mEq to be given this evening; K-Phos increased in TPN in light of decreased potassium and phosphorus. No evidence of infectious colitis at surgery; antibiotics discontinued. IV metoprolol as needed for elevated blood pressures or tachycardia. Resume oral metoprolol and Eliquis as soon as possible postoperatively. Hospital Course Summary Disclaimer: The visit summary below is not to be considered part of the above Progress Note. Hospital Course: Plan - 12/17/17: Admit, observation status Will consult Dr. Caldera for surgical evaluation and expertise. Will initiate Levaquin 500mg IV daily as well as Flagyl 500mg TID for treatment of suspected colitis as well as UTI. Will obtain blood cultures prior to treatment for complete evaluation. Lactate on admission was 1.0. Will keep NPO except for oral medications. Medication list verified with Dr. Dyer - current computer reconciliation is incorrect. Current home medications are as follows: * HCTZ 25mg QAM * Metoprolol succinate ER 50mg BID * Losartan 100mg daily * Citalopram 10mg daily * Fish oil 1000mg BID * Flax oil - 2 tbs over cereal daily * Calcium + D 600-200 mg-unit - 1 tab BID * Vitamin C - 1 tab BID * Eliquis 2.5mg BID * Flecainide 50mg - 2 tabs (100mg) BID Will continue home dosing of metoprolol, losartan, Eliquis and Flecainide and hold other home medications. Recheck labs in AM to monitor blood counts, electrolytes and renal function. Upon discharge, patient's care will be returned to her PCP, Dr. Dyer. Patient requests to be a FULL CODE. 12/18/17: Continue current antibiotics and NPO state pending further evaluation by Dr. Caldera Decrease LR to 50 cc/hour maintenance rate for now pending further plans Will keep NPO except for oral medications for now Will continue home dosing of metoprolol, losartan, Eliquis and Flecainide and hold other home medications for now Recheck labs in AM to monitor blood counts, electrolytes and renal function 12/19/17: Continue current antibiotics and CLD pending further evaluation by Dr. Caldera Continue to hold eliquis until trajectory more clear Stop IVF and allow clear liquid intake alone today Continue losartan and toprol; prn hydralazine ordered for systolic >150 Recheck labs in AM to monitor blood counts, electrolytes and renal function Repeat clean catch UA to ensure on occult resistant UTI driving leukocytosis Continue inpatient care at this time; still having symptoms and unable to take regular diet thus far Ambulate in the halls today with assistance 12/20/17: Increased nausea while preparing for SBFT. Added reglan and scopolamine patch. Replace IV potassium. Eliquis remains on hold. SBFT c/w small bowel obstruction; Gastrografin remained in stomach and proximal jejunum at 3.5 hours. Refractory nausea present today, feculent emesis 2-NG replaced to low intermittent suction; d/w Dr. Caldera. PICC line to be placed for TPN. Have discussed with nursing on several occasions. Blood pressure persistently elevated-IV hydralazine ordered x 1 to assess response. 12/21/17: N/V much improved. Over 2L has been suctioned via NGT since midnight. PICC line inserted to initiate TPN. Will stop NS to help prevent fluid overload. K improved to 3.5 after bolus yesterday. Na improved as well. WBC up slightly to 12.7; continue Levaquin and Flagyl BP improving; continue IV hydralazine, last dose given early this morning (3) CT abdomen/pelvis done today: Impression: 1. High-grade partial small bowel obstruction in the proximal to mid ileum of the right lower quadrant. This involves an approximately 15 cm long segment of thick-walled small bowel that could be due to ischemic, infectious or inflammatory enteritis. The amount of mesenteric edema present has significantly improved since the prior study and there is oral contrast seen throughout small and large bowel to the level of the rectum. 2. Small pleural effusions and small volume ascites. 12/22/17 Remains NPO with NG tube intact Planned for exploratory laparotomy with small bowel resection under the care of Dr. Caldera Continue on TPN via PICC line Will add Accuchecks given fasting BGM this morning was 199. Hypokalemia this morning down to 2.5. Patient given IV potassium supplementation. Will likely require more later today Continue Levaquin and Flagyl, WBC count 10.2
--- NOTE | 2017-12-22 09:56 | Anesthesia Preoperative Report ---
Anesthesia Preoperative Record - Date and Time Date: 12/22/17 Preoperative Diagnosis: colitis, hyponatremia, new leukocytosis, need for Proposed Procedure: laparotomy small bowel resection NPO Since Date: 12/17/17 Allergies/Adverse Reactions: Allergies Allergy/AdvReac Type Severity Reaction Status Date / Time No Known Allergies Allergy Verified 12/17/17 03:45 - Vital Signs Vital Signs: Temperature 97.7 F 12/22/17 08:00 Pulse Rate 85 12/22/17 08:00 Respiratory Rate 20 12/22/17 03:38 Blood Pressure 156/92 H 12/22/17 08:00 Pulse Oximetry 97 12/22/17 08:00 Height and Weight: Height 1.52 m Weight 49.1 kg Body Mass Index 19.2 - Medications Inpatient Medications: Current Medications Apixaban (Eliquis) 2.5 mg PO BID [facility] Last Admin: 12/18/17 08:24 Dose: 2.5 mg Flecainide Acetate (Tambocor) 100 mg PO BID [facility] Last Admin: 12/21/17 20:41 Dose: 100 mg Hydralazine HCl (Apresoline) 10 mg IVP Q4H PRN PRN Reason: Hypertension Last Admin: 12/21/17 04:43 Dose: 10 mg Hydrochlorothiazide (Hydrodiuril) 25 mg PO DAILY [facility] Last Admin: 12/20/17 09:24 Dose: 25 mg Metronidazole/Sodium Chloride (Flagyl Iv Premix) 500 mg in 100 mls @ 100 mls/ hr IV Q8H [facility] Last Infusion: 12/22/17 01:40 Dose: Infused Levofloxacin/Dextrose (Levaquin 500 Mg Premix) 500 mg in 100 mls @ 100 mls/hr IV Q24H [facility] Last Infusion: 12/21/17 14:10 Dose: Infused Multivitamins/Minerals 10 ml/Chromium/Copper/Manganese/Zinc 1 ml/ Amino Acids/ Electrolytes/Dextrose 2,011 mls @ 80 mls/hr IV .Q24H [facility]; Protocol Last Infusion: 12/22/17 01:40 Dose: 80 mls/hr Fat Emulsion Intravenous (Intralipid 20%) 100 mls @ 25 mls/hr IV 2000 [facility] Last Infusion: 12/21/17 23:37 Dose: Infused Lactated Ringer's (Lactated Ringers) 1,000 mls @ 50 mls/hr IV .Q20H [facility] Losartan Potassium (Cozaar) 100 mg PO DAILY [facility] Last Admin: 12/21/17 09:59 Dose: 100 mg Metoclopramide HCl (Reglan) 10 mg IVP Q6H PRN Last Admin: 12/20/17 14:03 Dose: 10 mg Metoprolol Succinate (Toprol Xl) 50 mg PO BID [facility] Last Admin: 12/21/17 20:40 Dose: 50 mg Metoprolol Tartrate (Lopressor) 5 mg IVP Q6H PRN PRN Reason: Systolic blood pressure Last Admin: 12/20/17 11:23 Dose: 5 mg Morphine Sulfate (Morphine Sulf 2 Mg Inj) 1 - 2 mg IVP Q2H PRN PRN Reason: Pain Last Admin: 12/18/17 01:55 Dose: 1 mg Ondansetron HCl (Zofran) 4 mg IVP Q6H PRN PRN Reason: Nausea &/or vomiting Last Admin: 12/20/17 17:25 Dose: 4 mg Pantoprazole Sodium (Protonix Iv) 40 mg IVP DAILY [facility] Last Admin: 12/21/17 09:59 Dose: 40 mg Scopolamine (Transderm-Scop Patch Removal) 1 removal TD O ONE Stop: 12/23/17 09:31 Sodium Chloride (Iv Flush) 10 - 80 ml IVF PRN PRN PRN Reason: Flushing Last Admin: 12/22/17 05:39 Dose: 10 ml Throat Lozenges (Chloraseptic [place]int[place]) 5 spray PO Q2H PRN Last Admin: 12/20/17 17:11 Dose: 4 spray Zolpidem Tartrate (Ambien) 5 mg PO HS PRN PRN Reason: Insomnia Last Admin: 12/21/17 20:41 Dose: 5 mg Home Medications: Home Medications Medication Instructions Recorded Confirmed Type Apixaban [Eliquis] 2.5 tab PO BID 12/17/17 12/17/17 History Citalopram [Celexa] 1 tab PO DAILY 12/17/17 12/17/17 History Flecainide [Tambocor] 100 mg PO BID 12/17/17 12/17/17 History Losartan [Cozaar] 100 mg PO DAILY 12/17/17 12/17/17 History Metoprolol Succinate (XL) [Toprol 25 mg PO DAILY 12/17/17 12/17/17 History Xl] hydroCHLOROthiazide 1 tab PO DAILY 12/17/17 12/17/17 History [Hydrochlorothiazide] Is Patient on Beta Belen?: Yes - Medical History Cardiovascular: Reports: Abnormal EKG, Arrhythmia (a fib), Hypertension Gastrointestional: Reports: Obstructive Bowel (possible as of todays date), Nausea or Vomiting Present (Vomitted a couple times last night) Neuro/Musculoskeletal: Reports: Back Problems (back is currently hurting) Renal/Endocrine: Reports: Weight Loss (gradual loss over 2 years) Other History: Reports: Chemotherapy (in the past), Cancer (breast) - Surgical History HEENT Surgeries: Reports: Oral Surgery (wisdom teeth removed 24 years ago) Cardiac Surgeries/Treatments: DENIES: Pacemaker GI Surgery/Treatments: Reports: Appendectomy Reproductive Surgery/Treatment: Reports: Mastectomy (left), Oophorectomy Anesthesia Reactions: None Hx Family Anesthesia Reaction: No History of Motion Sickness: No - Social History Smoking Status: Never smoker Hx Chewing Tobacco Use: No Second Hand Exposure: No Substance Use Type: does not use Alcohol Intake Frequency: does not drink - Pertinent Findings Laboratory: CBC and BMP 12/22/17 04:06 12/22/17 04:06 BMP 12/21/17 12/22/17 11:19 04:06 Sodium 141 141 Potassium 3.5 L D 2.5 L* D Chloride 104 D 105 Carbon Dioxide 25 D 29 BUN 18.0 H 19.0 H Creatinine 0.6 L D 0.5 L Glucose 98 199 H Calcium 8.4 D 7.9 L EKG: A-fib - Physical Exam Respiratory Exam: Present: lungs clear Cardiovascular Exam: Present: irregularly irregular, no murmur - Airway Assessment Mallampati Score: III TMD: 3 Fingerbreadths Neck Extension: good Teeth: chipped teeth/crowns Overall Assessment: may be difficult intubation - ASA ASA Score: 3 - Plan Anesthesia: General Inhalation Gases - Discussion Discussion: Discussed risks/options/alternatives of anesthesia and questions answered. Patient consents. Nursing pain assessment noted. Present for Discussion: spouse, family member Attestation Statement: Prior to the delivery of any anesthetic medication, I examined the patient, developed the plan, obtained the patient's consent and discussed the risk and benefits of the procedure with the patient/guardian. - Additional Information Seen by Anesthesia: Yes
[2017-12-22] MEDS: LR 1,000 ML IV SCH ×3 (10:57→12:54)
[2017-12-22] MEDS: LOSARTAN 100 MG TABLET PO SCH (11:15)
[2017-12-22] MEDS: FLECAINIDE 100 MG TABLET PO SCH ×2 (11:15→21:21)
[2017-12-22] MEDS ORDERED: PROPOFOL 20 ML ONE (12:04)
[2017-12-22] MEDS ORDERED: ROCURONIUM 50 MG/5 ML INJECTION IVP ONE ×2 (12:04→13:54)
[2017-12-22] MEDS ORDERED: FentaNYL 250 MCG/5 ML INJECTION ONE (12:29)
[2017-12-22] MEDS: LEVOFLOXACIN PB 500 MG/100 ML BAG IV SCH (12:30)
[2017-12-22] MEDS ORDERED: SALINE FLUSH 10ml SYRINGE ONE (12:41)
[2017-12-22] MEDS ORDERED: SUGAMMADEX 200mg/2ml INJECTION IVP ONE (14:17)
--- NOTE | 2017-12-22 14:37 | General Surgery Procedure Note ---
Date of Procedure: 12/22/17 Surgeon: Verenice Anesthesia: General Inhalation Gases ASA Score: 3 Postoperative Diagnosis: Strangulated internal hernia, SBO secondary to internal hernia Procedure: Exploratory laparotomy with release of strangulated internal hernia and segmental small bowel resection
--- NOTE | 2017-12-22 14:50 | Anesthesia Postoperative Note ---
- Date and Time Date: 12/22/17 Time: 14:50 - Status Patient Participated in Evaluation: Patient Participated in Person Vital Signs: Temperature 97.0 F 12/22/17 14:27 Pulse Rate 117 H 12/22/17 14:45 Respiratory Rate 20 12/22/17 14:45 Blood Pressure 169/74 H 12/22/17 14:45 Pulse Oximetry 92 12/22/17 14:45 Respiratory Function: Airway Patent Cardiovascular Function: Regular Pulse EKG: A-fib Mental Status: Alert and Oriented Pain Intensity: 4 Hydration: IV Infusing Nausea/Vomiting: None Complications During Recover: None Apparent - Follow-Up Instructions Instructions: Per Surgeon
[2017-12-22] MEDS: PANTOPRAZOLE 40 MG INJECTION IVP SCH (15:40)
--- NOTE | 2017-12-22 15:49 | Pharmacy Consult-TPN/PPN ---
Pharmacy Consult-TPN/PPN - Laboratory Information Chemistry Turbidity < 20 (0-20) 12/22/17 10:01 Sodium 143 MEQ/L (136-146) 12/22/17 10:01 Potassium 3.4 MEQ/L (3.6-5) L D 12/22/17 10:01 Chloride 108 MEQ/L (98-107) H 12/22/17 10:01 Carbon Dioxide 28 MEQ/L (22-30) 12/22/17 10:01 Anion Gap 7 meq/L (5-15) 12/22/17 10:01 BUN 17.0 MG/DL (7-17) 12/22/17 10:01 Creatinine 0.5 mg/dL (0.7-1.2) L 12/22/17 10:01 Estimated Creat Clear 30 mL/min (>50) 12/22/17 10:01 GFR Calculation 117 mL/min (>60) 12/22/17 10:01 BUN/Creatinine Ratio 34 RATIO (6-26) H 12/22/17 10:01 Glucose 184 MG/DL (65-110) H 12/22/17 10:01 Glucometer 149 mg/dL (65-110) 12/22/17 14:36 Calculated Osmolality 282 MOSM/KG (261-280) H 12/22/17 10:01 Calcium 7.8 MG/DL (8.4-10.2) L 12/22/17 10:01 Phosphorus 1.9 MG/DL (2.5-4.5) L 12/22/17 04:06 Magnesium 2.1 MG/DL (1.6-2.3) 12/22/17 04:06 Total Bilirubin 0.30 MG/DL (0.20-1.30) 12/17/17 04:04 Icterus Index < 2 (0-7) 12/22/17 10:01 AST 22 U/L (14-36) 12/17/17 04:04 ALT 14 U/L (1-35) 12/17/17 04:04 Alkaline Phosphatase 52 U/L (38-126) 12/17/17 04:04 Lactate Dehydrogenase 432 U/L (313-618) 12/17/17 06:22 C-Reactive Protein 26.9 mg/L (0-9) H 12/18/17 04:19 Total Protein 7.1 g/dL (6.3-8.2) 12/17/17 04:04 Albumin 3.0 g/dL (3.5-5.0) L 12/20/17 04:02 Globulin 2.9 G/DL (2.4-3.6) 12/17/17 04:04 Albumin/Globulin Ratio 1.4 RATIO (1.1-2.2) 12/17/17 04:04 Lipase 115 U/L (23-300) 12/17/17 04:04 Plasma Lactate 1.0 MMOL/L (0.6-2.2) 12/17/17 06:22 Procalcitonin < 0.05 NG/ML 12/17/17 10:20 Specimen Hemolysis < 15 (0-25) 12/22/17 10:01 Intake and Output 12/21/17 12/22/17 12/23/17 06:59 06:59 06:59 Intake Total 1731.25 / 1731.25 2222.917 / 2222.917 2696 / 2696 Output Total 1600 / 1600 2150 / 2150 300 / 300 Balance 131.25 / 131.25 72.917 / 72.917 2396 / 2396 Weight 49.9 kg 49.1 kg 49.5 kg Intake: IV 1731.25 / 1731.25 2067.917 / 2067.917 2696 / 2696 Fat Emulsion 20% 100 ml @ 25 100 / 100 mls/hr IV 2000 [facility] Rx#: [id number] Levofloxacin Pb 500 mg In 100 100 / 100 100 / 100 100 / 100 ml @ 100 mls/hr IV Q24H [facility] Rx# :[id number] Lidocaine 1% Inj 10 mg 400 / 400 400 / 400 300 / 300 Potassium Chloride Inj 10 meq In Ns 100 ml @ 100 mls/hr IV . Q1H [facility] Rx#:[id number] Lr 1,000 ml @ 50 mls/hr IV . 1500 / 1500 Q20H [facility] Rx#:[id number] MetroNIDAZOLE PB 500 mg In 100 200 / 200 300 / 300 100 / 100 ml @ 100 mls/hr IV Q8H [facility] Rx#: [id number] Multi-Vit Infusion 10 ml Multi 486.667 / 486.667 -Trace Elements 1 ml In TPN - Standard Formula 2,000 ml @ 80 mls/hr IV .Q24H [facility] Rx#: [id number] Ns 1,000 ml @ 75 mls/hr IV . 1031.25 / 1031.25 651.25 / 651.25 [id number] [facility] Rx#:[id number] Oral 155 / 155 Output: Urine 250 / 250 200 / 200 Emesis 450 / 450 Gastric Drainage 900 / 900 1950 / 1950 300 / 300 Left Nare 900 / 900 1950 / 1950 300 / 300 Other: Urine Appearance Clear Clear 2-way Urethral Clear Urine Color Tea Colored Tea Colored Dark Yellow 2-way Urethral Straw Urine Odor Normal Strong Normal Stool Characteristics Normal for Patient Stool Color Brown Brown Blood Tinged Yellow Stool Consistency Soft Soft Formed Watery Emesis Description Fecal Matter Size of Bowel Movement Small Moderate # Voids 1 1 1 # Bowel Movements 1 1 1 # Unmeasured Emesis Episodes 1 TPN THERAPY: DAY 2 TPN continued postop. Adding K+Phosphate 20mEq to each bag starting with next bag this evening. Calculated caloric needs based on her BEE are 1500 kcal. Calculated protein needs are between 50-100 gm protein daily. TPN provides 96 gm at the rate of 80 ml/hr. TPN provides 1305 non-protein kcal at 80 ml/hr Continue one bag of Fat Emulsion 20% 100ml to prevent EFAD and add calories ( 200 kcal). Patients fluid requirements are 2100 ml/day. Continue TPN @ 80 ml/hr = 1920 ml and 100 ml from the lipids = 2020 total fluids per day. Pharmacy will monitor the patient's electrolytes and adjust as needed. Thank you
[2017-12-22] MEDS: MORPHINE SULFATE 2mg INJECTION IVP PRN ×3 (16:55→21:55)
[2017-12-22] MEDS ORDERED: METOPROLOL 5mg/5ml INJECTION IVP PRN (17:58)
--- NOTE | 2017-12-22 18:06 | Progress Note ---
DATE OF VISIT 12/21/2017 REASON FOR VISIT Follow small bowel obstruction. SUBJECTIVE Lisbeth still does not like her NG tube but she says her abdomen is feeling better. Her NG tube was just repositioned and had fairly significant output of over 1000 mL in a short period of time. She denies any nausea. OBJECTIVE VITAL SIGNS: Afebrile with stable vitals on 2 L/nasal cannula. GENERAL: The patient is awake, alert, in no acute distress. ABDOMEN: Soft, nontender, nondistended. She does have an NG tube in place with significant dark brown output. IMAGING The patient's KUB from this morning was reviewed and showed position of the NG tube beneath the diaphragm though there was still a possible kink in the tube. There were ongoing dilated bowel loops. IMPRESSION 1. Small bowel obstruction of uncertain etiology - this may be related to inflammation of the bowel segment involved by enteritis. 2. Enteritis. 3. Anticoagulation with Eliquis - currently on hold. 4. Chronic atrial fibrillation. PLAN 1. Continue NG tube decompression. 2. Initiate TPN via a PICC line today. 3. Repeat CT scan given the difficult clinical situation of improvement in clinical symptoms yet ongoing radiographic evidence of an obstruction. ADDENDUM The CT scan the abdomen and pelvis from this afternoon was reviewed. It showed a 15-cm segment of thickened small bowel with a very narrow lumen through the area. There was proximal dilated bowel and some contrast in the colon. Radiology report was also reviewed. I did discuss the CT findings with Lisbeth and her family. I explained that I felt that her significant thickening of the small bowel and the area of concern would likely lead to prolonged small bowel obstruction and that the quickest resolution to her issue may be with surgery. I discussed exploratory laparotomy with segmental small bowel resection with the patient and her family and she was willing to proceed to the OR tomorrow. PATIENT EDUCATION Patient Education The details, risks and benefits of exploratory laparotomy with small-bowel resection were discussed with the patient and her family. The discussion included but was not limited to bleeding, infection, injury to intraabdominal contents, anastomotic leak, enterocutaneous fistula, abscess formation, and complications of anesthesia. MADAI
[2017-12-22] MEDS: [UNRECOGNIZED DRUG - OTHER] IV SCH (18:11)
[2017-12-22] MEDS: MULTI VIT INFUSION IV SCH (18:11)
[2017-12-22] MEDS: POTASSIUM PHOSPHATE IV SCH (18:11)
[2017-12-22] MEDS: LIDOCAINE 1% 2ml INJ 10 MG, POTASSIUM CHLORIDE INJ 10 MEQ in NS 100 ML IV SCH ×2 (18:39→19:48)
--- NOTE | 2017-12-22 21:10 | Operative Note ---
DATE OF OPERATION 12/22/2017 SURGEON Abiel Caldera MD SUPERVISOR THROWING DEPARTMENT Michael Chase MD PREOPERATIVE DIAGNOSIS Small bowel obstruction. POSTOPERATIVE DIAGNOSES 1. Strangulated internal hernia. 2. Small bowel obstruction related to strangulated internal hernia. PROCEDURE 1. Exploratory laparotomy. 2. Release of strangulated hernia. 3. Segmental small bowel resection with anastomosis. ANESTHESIA General. ASA Class 3 INDICATIONS The patient is an 87-year-old female who had been admitted to the hospital for the diagnosis of enteritis based on some inflammation seen on a CT scan. The patient's clinical condition was worsening and she had developed a bowel obstruction. A small bowel follow-through had failed to reveal passage of the contrast. A repeat CT scan had been performed and showed a 15-cm segment of thickened small bowel that was associated with the point of obstruction. Exploratory laparotomy with segmental small bowel resection was recommended to her. FINDINGS There was a short segment of the jejunum that had been involved in a strangulated internal hernia. There did not appear to be arterial compromise but venous outflow compromised the mesentery since there was thrombosis of some of the vessels in the mesentery but not necrotic bowel. The proximal bowel was dilated and the distal bowel was decompressed. 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 The left ovary remained in position without abnormality. DESCRIPTION OF PROCEDURE After informed consent was obtained the patient was taken to the operating room and placed in a supine position. General anesthesia was administered by the anesthesia team. The patient's abdomen was prepped and draped in usual sterile fashion. The patient's prior lower midline incision was reopened on the superior aspect of the incision. The incision was extended to the left of the umbilicus and slightly above the umbilicus. Electrocautery was used to dissect down through the subcutaneous tissue. The peritoneal cavity was entered just above the umbilicus and a finger was inserted while the fascia was divided with cautery. Some omental adhesions to the undersurface of the fascia were taken down with cautery. Once the incision was opened additional adhesions in the pelvis of the omentum to the pelvic sidewall and the uterus were taken down using cautery. With adequate space developed an Donavan O Wound Protector was placed to protect the subcutaneous tissue during the procedure. The small bowel was then run from the terminal ileum to the ligament of Treitz and the single area of abnormality was noted. The Meckel's diverticulum was incidentally noted at the terminal ileum. The liver and gallbladder had been palpated and no abnormality was noted. The left ovary had been inspected along with the uterus and fallopian tubes. The colon itself appeared normal. Given the venous compromise of the segment of the small bowel, it was felt that a segmental small bowel resection would be required. There was clear delineation of the transition point with signs of extrinsic compression along with band of narrowing along the mesentery delineating the abnormal mesentery from normal- appearing mesentery. Division sites were selected for the small bowel both proximal and distal to the abnormal segment. Windows were made in the mesentery and the bowel loops were placed within a TLC75 stapler. The stapler was fired to divide the two bowel loops. The mesentery was then divided between clamps and the edges of the mesentery were ligated with 0-Vicryl ties. Once the segment of compromised bowel was removed it was sent to Pathology. The surgical field was draped with sterile towels and the corners of the staple lines were removed after atraumatic bowel clamps were placed on the small bowel to keep the small bowel contents from leaking during anastomosis. A reload of the TLC75 stapler was fired to create a common channel of the two bowel segments. The stapler had been fired along the antimesenteric borders. The staple lines at the common enterotomy were then offset and the common enterotomy was closed with a [id number] stapler. The anastomosis was palpated and was noted to be widely patent. 3-0 Vicryl sutures were placed at the crotch of the anastomosis to prevent unzippering. The mesenteric defect was closed with a 3-0 PDS suture. The abdomen had been irrigated and suctioned free of fluid and no other abnormalities were noted. The anastomosis was returned to the abdomen and the omentum was draped over the small bowel. The wound protector was removed after I had removed an outer surgical glove. The entire surgical team then changed gown and gloves. The sterile field was redraped and new instruments were used for closure. The fascia was closed with running #1 PDS suture. The base of the umbilicus had been divided with cautery to expose the fascial edges. The umbilicus was tacked to the fascia with a [id number] stitch of 3-0 Vicryl. Given the patient's thin body habitus the knot of the PDS suture was also tacked within a subcutaneous space. The skin was closed with marvin. Sterile bandages were applied as a dressing. Dr. Chase was present throughout the entire operation and did provide critical exposure with retraction and assistance in creating the anastomosis. MADAI
[2017-12-22] MEDS: FAT EMULSION 20% 100 ML IV SCH (21:17)
[2017-12-22] MEDS: INSULIN ASPART 100unit/ml INJECTION SQ PRN (22:16)
[2017-12-23] MEDS: MORPHINE SULFATE 2mg INJECTION IVP PRN (00:39)
[2017-12-23] MEDS: INSULIN ASPART 100unit/ml INJECTION SQ PRN ×2 (02:59→09:04)
--- NOTE | 2017-12-23 08:43 | Pharmacy Consult-TPN/PPN ---
Pharmacy Consult-TPN/PPN - Laboratory Information Chemistry Turbidity < 20 (0-20) 12/23/17 04:01 Sodium 144 MEQ/L (136-146) 12/23/17 04:01 Potassium 3.2 MEQ/L (3.6-5) L 12/23/17 04:01 Chloride 109 MEQ/L (98-107) H 12/23/17 04:01 Carbon Dioxide 27 MEQ/L (22-30) 12/23/17 04:01 Anion Gap 8 meq/L (5-15) 12/23/17 04:01 BUN 18.0 MG/DL (7-17) H 12/23/17 04:01 Creatinine 0.5 mg/dL (0.7-1.2) L 12/23/17 04:01 Estimated Creat Clear 31 mL/min (>50) 12/23/17 04:01 GFR Calculation 117 mL/min (>60) 12/23/17 04:01 BUN/Creatinine Ratio 36 RATIO (6-26) H 12/23/17 04:01 Glucose 176 MG/DL (65-110) H 12/23/17 04:01 Glucometer 186 mg/dL (65-110) 12/23/17 07:47 Calculated Osmolality 283 MOSM/KG (261-280) H 12/23/17 04:01 Calcium 7.2 MG/DL (8.4-10.2) L 12/23/17 04:01 Phosphorus 2.4 MG/DL (2.5-4.5) L 12/23/17 04:01 Magnesium 2.1 MG/DL (1.6-2.3) 12/22/17 04:06 Total Bilirubin 0.30 MG/DL (0.20-1.30) 12/17/17 04:04 Icterus Index < 2 (0-7) 12/23/17 04:01 AST 22 U/L (14-36) 12/17/17 04:04 ALT 14 U/L (1-35) 12/17/17 04:04 Alkaline Phosphatase 52 U/L (38-126) 12/17/17 04:04 Lactate Dehydrogenase 432 U/L (313-618) 12/17/17 06:22 C-Reactive Protein 26.9 mg/L (0-9) H 12/18/17 04:19 Total Protein 7.1 g/dL (6.3-8.2) 12/17/17 04:04 Albumin 3.0 g/dL (3.5-5.0) L 12/20/17 04:02 Globulin 2.9 G/DL (2.4-3.6) 12/17/17 04:04 Albumin/Globulin Ratio 1.4 RATIO (1.1-2.2) 12/17/17 04:04 Lipase 115 U/L (23-300) 12/17/17 04:04 Plasma Lactate 1.0 MMOL/L (0.6-2.2) 12/17/17 06:22 Procalcitonin < 0.05 NG/ML 12/17/17 10:20 Specimen Hemolysis < 15 (0-25) 12/23/17 04:01 - Consult Information TPN THERAPY: DAY 3 TPN continued postop. Continue to add the extra K+Phosphate 20mEq to each bag starting with next bag this evening. Calculated caloric needs based on her BEE are 1500 kcal. Calculated protein needs are between 50-100 gm protein daily. TPN provides 96 gm at the rate of 80 ml/hr. TPN provides 1305 non-protein kcal at 80 ml/hr Continue one bag of Fat Emulsion 20% 100ml to prevent EFAD and add calories ( 200 kcal). Patients fluid requirements are 2100 ml/day. Continue TPN @ 80 ml/hr = 1920 ml and 100 ml from the lipids = 2020 total fluids per day. Pharmacy will monitor the patient's electrolytes and adjust as needed. Thank you for the TPN Consult, Cristian Ruiz, Pharmacist.
[2017-12-23] MEDS: FLECAINIDE 100 MG TABLET PO SCH ×2 (09:00→20:37)
[2017-12-23] MEDS: LOSARTAN 100 MG TABLET PO SCH (09:00)
[2017-12-23] MEDS: PANTOPRAZOLE 40 MG INJECTION IVP SCH (09:01)
[2017-12-23] MEDS ORDERED: SCOPOLAMINE PATCH REMOVAL TD ONE (09:30)
--- NOTE | 2017-12-23 10:06 | Progress Note ---
- Date 12/23/17 Subjective: Lisbeth is seen this morning in follow-up. She is resting in bed with her daughter at the bedside. Overall, she appears weak and frail. Reports had somewhat of a difficult night. She did require morphine for abdominal pain control. Her noted that she had some confusion and dreams or hallucinations following morphine. This morning Lisbeth denies any abdominal pain at rest. She does note to be uncomfortable with position changes. NG tube remains intact. Mildly tachycardia at 110 at time of examination. Objective Vital signs: Temperature 99.1 F 12/23/17 07:18 Pulse Rate 112 H 12/23/17 07:18 Respiratory Rate 17 12/23/17 07:18 Blood Pressure 131/59 12/23/17 07:18 Pulse Oximetry 93 12/23/17 07:18 Height/Weight/BMI: Height 1.52 m Weight 51.8 kg Body Mass Index 19.2 - Constitutional Present: no acute distress, well nourished, well developed - Routine HEENT Exam Eye: Present: EOMI ENT: Present: mucous membranes moist, dentition normal - Routine Respiratory Exam Present: CTA bilaterally. Absent: wheezes - Routine Cardiovascular Exam Present: RRR, S1, S2. Absent: murmur - Routine Abdominal Exam Present: soft, non distended. Absent: normoactive bowel sounds (hypoactive), tenderness Comments: Surgical dressing intact to abdominal incision - Routine Extremities Exam Present: full ROM - Routine Skin Exam Present: intact, dry, warm - Routine Neurological Exam Present: alert, oriented X3, CN II-XII intact - Routine Lymphatic Exam Lymphatic: Absent: adenopathy - Routine Psychiatric Exam Present: cooperative Results - Labs CBC & Chem 7: 12/23/17 04:01 12/23/17 04:01 Microbiology Results: Microbiology 12/17/17 10:28 Peripheral/Iv Start Blood Culture - Final No Growth After 5 Days 12/17/17 10:20 Peripheral/Iv Start Blood Culture - Final No Growth After 5 Days 12/19/17 13:24 Urine, Voided (Cc/notcc) Urine Culture - Final No Growth After 2 Days 12/17/17 06:04 Urine, Voided (Cc/notcc) Urine Culture - Final Mixed Bacterial Cheri Present -No further testing will be performed Assessment and Plan (1) Abdominal pain Current visit: Yes Status: Acute (2) Colitis Current visit: Yes Status: Acute Assessment and Plan: Assessment: Acute colitis of unclear etiology, presumed infectious source Small bowel obstruction Acute abdominal pain with nausea and vomiting Pyuria and bacteruria; assx Hx atrial fibrillation, eliqius/toprol/flecainide --> Sinus on admission, eliquis on hold Atrial fibrillation/flutter-12/22/17 Hypertension Hypokalemia Hyponatremia Plan: Remains on TPN via PICC line. Remains NPO with NG tube intact Hypokalemia- 3.2. Will given IV Potassium bags x2 bags. Will recheck later today Remains in A-fib RVR 110-120. BB was help last night, however was given this am. PRN Lopressor for tachycardia Work on weaning down oxygen as able. Currently on 2 liters. Levaquin and Flagyl discontinued. Eliquis remains on hold. Overall appears fragile and weak. DVT Prophylaxis: SCD's, Eliquis (currenlty held, last dose 12/18) GI Prophylaxis: Protonix Resuscitation Status: Full Code - Physician Narrative Physician: Reina Wylie MD Narrative: Date: 12/20/17 Time: 1600 I have independently evaluated and examined this patient. I reviewed the chart, the patient's history, and the CLINICAL HAEMATOLOGIST/PA's documented findings as above. We discussed and formulated the assessment and plan as above with additions as below: Mrs. Hernandez was seen with family at bedside late this morning at which time she denied chest pain or palpitations; she reports abdominal pain is present with any movement or activity. NAD, alert rest Respirations nonlabored, good airflow, breath sounds clear Irregular cardiac rhythm Telemetry strips reviewed-preoperatively yesterday rhythm was atrial fibrillation although strip at midnight 12/22 remained sinus rhythm. Remains in A. fib/flutter today with low-grade tachycardia. Medications reviewed-flecainide/metoprolol on hold only yesterday so patient had not missed medications when she went into atrial fibrillation. Eliquis however has been on hold. Cardiology consulted for recommendations regarding risk of re-converting since patient has not been anticoagulated for a number of days. Discussed with Sherry Izquierdo. Discussed with Dr. Caldera-resume Musa in a.m.; Lovenox today. Repeat potassium pending to determine if additional potassium should be given today. Hospital Course Summary Disclaimer: The visit summary below is not to be considered part of the above Progress Note. Hospital Course: Plan - 12/17/17: Admit, observation status Will consult Dr. Caldera for surgical evaluation and expertise. Will initiate Levaquin 500mg IV daily as well as Flagyl 500mg TID for treatment of suspected colitis as well as UTI. Will obtain blood cultures prior to treatment for complete evaluation. Lactate on admission was 1.0. Will keep NPO except for oral medications. Medication list verified with Dr. Dyer - current computer reconciliation is incorrect. Current home medications are as follows: * HCTZ 25mg QAM * Metoprolol succinate ER 50mg BID * Losartan 100mg daily * Citalopram 10mg daily * Fish oil 1000mg BID * Flax oil - 2 tbs over cereal daily * Calcium + D 600-200 mg-unit - 1 tab BID * Vitamin C - 1 tab BID * Eliquis 2.5mg BID * Flecainide 50mg - 2 tabs (100mg) BID Will continue home dosing of metoprolol, losartan, Eliquis and Flecainide and hold other home medications. Recheck labs in AM to monitor blood counts, electrolytes and renal function. Upon discharge, patient's care will be returned to her PCP, Dr. Dyer. Patient requests to be a FULL CODE. 12/18/17: Continue current antibiotics and NPO state pending further evaluation by Dr. Caldera Decrease LR to 50 cc/hour maintenance rate for now pending further plans Will keep NPO except for oral medications for now Will continue home dosing of metoprolol, losartan, Eliquis and Flecainide and hold other home medications for now Recheck labs in AM to monitor blood counts, electrolytes and renal function 12/19/17: Continue current antibiotics and CLD pending further evaluation by Dr. Caldera Continue to hold eliquis until trajectory more clear Stop IVF and allow clear liquid intake alone today Continue losartan and toprol; prn hydralazine ordered for systolic >150 Recheck labs in AM to monitor blood counts, electrolytes and renal function Repeat clean catch UA to ensure on occult resistant UTI driving leukocytosis Continue inpatient care at this time; still having symptoms and unable to take regular diet thus far Ambulate in the halls today with assistance 12/20/17: Increased nausea while preparing for SBFT. Added reglan and scopolamine patch. Replace IV potassium. Eliquis remains on hold. SBFT c/w small bowel obstruction; Gastrografin remained in stomach and proximal jejunum at 3.5 hours. Refractory nausea present today, feculent emesis 2-NG replaced to low intermittent suction; d/w Dr. Caldera. PICC line to be placed for TPN. Have discussed with nursing on several occasions. Blood pressure persistently elevated-IV hydralazine ordered x 1 to assess response. 12/21/17: N/V much improved. Over 2L has been suctioned via NGT since midnight. PICC line inserted to initiate TPN. Will stop NS to help prevent fluid overload. K improved to 3.5 after bolus yesterday. Na improved as well. WBC up slightly to 12.7; continue Levaquin and Flagyl BP improving; continue IV hydralazine, last dose given early this morning (0443) CT abdomen/pelvis done today: Impression: 1. High-grade partial small bowel obstruction in the proximal to mid ileum of the right lower quadrant. This involves an approximately 15 cm long segment of thick-walled small bowel that could be due to ischemic, infectious or inflammatory enteritis. The amount of mesenteric edema present has significantly improved since the prior study and there is oral contrast seen throughout small and large bowel to the level of the rectum. 2. Small pleural effusions and small volume ascites. 12/22/17 Remains NPO with NG tube intact Planned for exploratory laparotomy with small bowel resection under the care of Dr. Caldera Continue on TPN via PICC line Will add Accuchecks given fasting BGM this morning was 199. Hypokalemia this morning down to 2.5. Patient given IV potassium supplementation. Will likely require more later today Continue Levaquin and Flagyl, WBC count 10.2 12/23/17 Remains on TPN via PICC line. Remains NPO with NG tube intact Hypokalemia- 3.2. Will given IV Potassium bags x2 bags. Will recheck later today Remains in A-fib RVR 110-120. BB was help last night, however was given this am. PRN Lopressor for tachycardia Work on weaning down oxygen as able. Currently on 2 liters. Levaquin and Flagyl discontinued. Eliquis remains on hold.
[2017-12-23] MEDS: LIDOCAINE 1% INJ 10 MG, POTASSIUM CHLORIDE INJ 10 MEQ in NS 100 ML IV SCH ×2 (11:23→12:53)
[2017-12-23] MEDS ORDERED: NS FLUSH BAG 500ml IV PRN (11:25)
[2017-12-23] MEDS ORDERED: HYDROMORPHONE 2 MG/ML INJECTION IVP PRN (13:26)
--- NOTE | 2017-12-23 14:51 | Cardiology Consult Note ---
History of Present Illness Consult date: 12/23/17 Requesting physician: Reina Wylie Consult reason: atrial fibrillation Chief complaint: abd pain History of present illness: Lisbeth is a 87 year old female who is known to Dr. Gaytan's practice with a history of PAF, HTN and bradycardia who complained of generalized abdominal pain , worse in the right lower quadrant and presented [place] [facility] [place]. In the ED, she was hypertensive at 212/84 but her blood pressure improved after receiving Dilaudid 0.5mg and fentanyl 50 mcg for pain control. CT abdomen/ pelvis revealed moderate diffuse thickening of the small bowel in the right lower quadrant with mesenteric edema which suggests colitis either from infectious, inflammatory or ischemic without definite vascular occlusion. Dr. Wylie was consulted and she was admitted to observation status for further evaluation and close monitoring. Dr. Caldera was consulted for surgical evaluation and expertise. She was made NPO with NG tube in place. Antiarrhythmic medication Flecainide 100mg by mouth every morning and evening was held by nursing staff for both doses on 12/22/17. Yesterday she underwent an exploratory laparotomy with release of strangulated internal hernia and segmental small bowel resection. Review of telemetry should SR through 0001 on however following surgical procedure it was noted to be atrial fibrillation. Flecainide 100mg was given this morning. Her last dose of Eliquis was given on at [address] Ivey is consulted for further evaluation and management and we appreciate the consult. Last Echo 04/2017: EF 55%, NWMA, restrictive LVDD, moderate LAE, mild MAINE, mild AI/MR, moderate TR, PAP 28mmHg Last Holter 04/2017: SR, sinus ernesto, HR 36-78, average rate 52, pauses up to 2.2 seconds in early am, rare PACs. Review of Systems - Constitutional Constitutional: Present: weakness. Absent: chills, fever(s) - EENMT Eyes: Absent: change in vision Balance: Absent: vertigo Mouth/Throat: Absent: sore throat - Cardiovascular Cardiovascular: Absent: chest pain, palpitations, dyspnea on exertion, orthopnea Rhythm: Present: abnormal rhythm Vascular: Absent: pedal edema - Respiratory Respiratory: Absent: cough, dyspnea, dyspnea on exertion - Gastrointestinal Gastrointestinal: Present: nausea. Absent: constipation, diarrhea, vomiting - Genitourinary Genitourinary: Absent: dysuria - Integumentary/Breasts Integumentary: Absent: rash - Neurological Neurological: Absent: dizziness - Endocrine Endocrine: Present: palpitations PFSH Patient Stated Medical History Cataracts Yes: removed 3 years ago Cardiac Arrhythmia Yes: a fib Hypertension Yes Sleep Apnea No Obstructive Bowel Yes: possible as of todays date Hx Incontinence Yes: Sometimes doesnt make it to the bathroom to urinate Hx Renal Disease No Chemotherapy Yes: in the past Other Reproductive Yes: Ovary removed unsure of reason Clinic Medical History (Last Updated 12/18/17 @ 13:53 by Abiel Caldera MD) Chronic anticoagulation (Chronic Medical) Eliquis History of breast cancer (Resolved Medical ~1991) Left sided - underwent mastectomy and adjuvant chemotherapy Hypertension (Chronic Medical) A-fib (Chronic Medical) History of GI bleed (Resolved Medical) History of blood transfusion (Inactive Medical 2015) Surgical History: * Colonoscopy - ~2015 by [facility] S[facility] in [place], [place]. * Right oophorectomy secondary to mass. * Heart cath (unremarkable) - 2013. * Left mastectomy - 1991. * x 3. * Appendectomy. 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) Does patient use chewing tobacco?: No Current residence: Apartment/Private Home Medications Home Medications Medication Instructions Recorded Confirmed Type Apixaban [Eliquis] 2.5 tab PO BID 12/17/17 12/17/17 History Citalopram [Celexa] 1 tab PO DAILY 12/17/17 12/17/17 History Flecainide [Tambocor] 100 mg PO BID 12/17/17 12/17/17 History Losartan [Cozaar] 100 mg PO DAILY 12/17/17 12/17/17 History Metoprolol Succinate (XL) [Toprol 25 mg PO DAILY 12/17/17 12/17/17 History Xl] hydroCHLOROthiazide 1 tab PO DAILY 12/17/17 12/17/17 History [Hydrochlorothiazide] Allergies Allergy/AdvReac Type Severity Reaction Status Date / Time No Known Allergies Allergy Verified 12/17/17 03:45 Exam Vital signs: Temperature 97.2 F 12/23/17 11:47 Pulse Rate 94 12/23/17 11:47 Respiratory Rate 16 12/23/17 13:40 Blood Pressure 105/62 12/23/17 11:47 Pulse Oximetry 95 12/23/17 13:21 - Constitutional no acute distress, thin, cooperative - Routine HEENT Exam Head: Present: normocephalic ENT: Present: mucous membranes dry - Routine Neck Exam Absent: JVD, carotid bruit - Routine Chest/Breast/Axilla Exam Chest wall: Absent: tenderness - Routine Respiratory Exam Present: CTA bilaterally. Absent: dyspnea, rales, wheezes - Routine Cardiovascular Exam Present: no murmur, irregular rhythm - Routine Abdominal Exam Present: soft, tenderness - Routine Extremities Exam Present: no edema - Routine Skin Exam Present: intact, dry, warm - Routine Neurological Exam Present: alert - Routine Psychiatric Exam Present: normal affect Results 12/23/17 04:01 12/23/17 04:01 CBC 12/23/17 Range/Units 04:01 WBC 10.1 (4.5-11.0) T/MM3 RBC 3.41 L (4.00-5.20) M/MM3 Hgb 10.7 L (12-16) GM/DL Hct 32.2 L (36-46) % Plt Count 221 (130-400) T/MM3 Neut # (Auto) 7.6 (1.8-7.7) T/MM3 Lymph # (Auto) 1.3 (1-4.8) T/MM3 [place] # (Auto) 1.1 H (0-0.8) T/MM3 Eos # (Auto) 0.0 (0-0.5) T/MM3 Baso # (Auto) 0.0 (0-0.2) T/MM3 Comprehensive Metabolic Panel 12/23/17 Range/Units 04:01 Sodium 144 (136-146) MEQ/L Potassium 3.2 L (3.6-5) MEQ/L Chloride 109 H (98-107) MEQ/L Carbon Dioxide 27 (22-30) MEQ/L BUN 18.0 H (7-17) MG/DL Creatinine 0.5 L (0.7-1.2) mg/dL Glucose 176 H (65-110) MG/DL Calcium 7.2 L (8.4-10.2) MG/DL Intake and Output 12/22/17 12/23/17 12/23/17 22:59 06:59 14:59 Intake Total 1481.501 / 1481.501 100 / 100 100 / 100 Output Total 300 / 300 425 / 425 290 / 290 Balance 1181.501 / 1181.501 -325 / -325 -190 / -190 Intake: IV 1481.501 / 1481.501 100 / 100 100 / 100 Fat Emulsion 20% 100 ml @ 25 100 / 100 mls/hr IV 2000 JOSE Rx#: [id number] LIDOCAINE 1% 2ml INJ 10 mg 200 / 200 Potassium Chloride Inj 10 meq In Ns 100 ml @ 100 mls/hr IV . Q1H JOSE Rx#:[id number] Lidocaine 1% Inj 10 mg 100 / 100 Potassium Chloride Inj 10 meq In Ns 100 ml @ 100 mls/hr IV . Q1H JOSE Rx#:[id number] Lr 1,000 ml @ 50 mls/hr IV . 557.5 / 557.5 Q20H JOSE Rx#:[id number] Multi-Vit Infusion 10 ml Multi 625.334 / 625.334 -Trace Elements 1 ml In TPN - Standard Formula 2,000 ml @ 80 mls/hr IV .Q24H JOSE Rx#: [id number] POTASSIUM PHOSPHATE (mEq) 20 98.667 / 98.667 meq Multi-Vit Infusion 10 ml Multi-Trace Elements 1 ml In TPN - Standard Formula 2,000 ml @ 80 mls/hr IV .Q24H JOSE Rx#: [id number] Output: Urine 300 / 300 290 / 290 Urine Amount (Catheter) 425 / 425 Other: Urine Appearance Clear Cloudy Clear Urine Color Dark Yellow Dark Yellow Straw Tea Colored Urine Odor Normal Normal Strong Weight 109 lb 2.061 oz 114 lb 3.191 oz Patient Weight 12/24/17 06:59 Weight 114 lb 3.191 oz Assessment and Plan - Assessment and Plan (1) A-fib Current visit: Yes Status: Chronic - Paroxysmal, in SR on admit through 2017 on 12/22/17 - Flecainide not given 12/22/17, resumed 12/23/17, continue - Eliquis on hold last given 12/18/17 am dose - Okay with surgery to resume in am - continue to monitor telemetry - EKG prn rhythm change (2) S/P small bowel resection Current visit: Yes Status: Acute per surgery (3) Chronic anticoagulation Problem details: Eliquis Current visit: Yes Status: Chronic (4) Hypertension Current visit: Yes Status: Chronic stable on current therapy, continue current therapy - Assessment and Plan A-fib Current visit: Yes Status: Chronic - Paroxysmal, in SR on admit through 0001 on 12/22/17 - Flecainide not given 12/22/17, resumed 12/23/17, continue - Eliquis on hold last given 12/18/17 am dose - Okay with surgery to resume in am - continue to monitor telemetry - EKG prn rhythm change S/P small bowel resection Current visit: Yes Status: Acute per surgery Chronic anticoagulation Problem details: Eliquis Current visit: Yes Status: Chronic - resume in am Hypertension Current visit: Yes Status: Chronic stable on current therapy, continue current therapy Thank you for allowing us to participate in the care of this patient, we will follow along with you. Hospital Course Summary Disclaimer: The visit summary below is not to be considered part of the above Progress Note. Hospital Course: Plan - 12/17/17: Admit, observation status Will consult Dr. Caldera for surgical evaluation and expertise. Will initiate Levaquin 500mg IV daily as well as Flagyl 500mg TID for treatment of suspected colitis as well as UTI. Will obtain blood cultures prior to treatment for complete evaluation. Lactate on admission was 1.0. Will keep NPO except for oral medications. Medication list verified with Dr. Dyer - current computer reconciliation is incorrect. Current home medications are as follows: * HCTZ 25mg QAM * Metoprolol succinate ER 50mg BID * Losartan 100mg daily * Citalopram 10mg daily * Fish oil 1000mg BID * Flax oil - 2 tbs over cereal daily * Calcium + D 600-200 mg-unit - 1 tab BID * Vitamin C - 1 tab BID * Eliquis 2.5mg BID * Flecainide 50mg - 2 tabs (100mg) BID Will continue home dosing of metoprolol, losartan, Eliquis and Flecainide and hold other home medications. Recheck labs in AM to monitor blood counts, electrolytes and renal function. Upon discharge, patient's care will be returned to her PCP, Dr. Dyer. Patient requests to be a FULL CODE. 12/18/17: Continue current antibiotics and NPO state pending further evaluation by Dr. Caldera Decrease LR to 50 cc/hour maintenance rate for now pending further plans Will keep NPO except for oral medications for now Will continue home dosing of metoprolol, losartan, Eliquis and Flecainide and hold other home medications for now Recheck labs in AM to monitor blood counts, electrolytes and renal function 12/19/17: Continue current antibiotics and CLD pending further evaluation by Dr. Caldera Continue to hold eliquis until trajectory more clear Stop IVF and allow clear liquid intake alone today Continue losartan and toprol; prn hydralazine ordered for systolic >150 Recheck labs in AM to monitor blood counts, electrolytes and renal function Repeat clean catch UA to ensure on occult resistant UTI driving leukocytosis Continue inpatient care at this time; still having symptoms and unable to take regular diet thus far Ambulate in the halls today with assistance 12/20/17: Increased nausea while preparing for SBFT. Added reglan and scopolamine patch. Replace IV potassium. Eliquis remains on hold. SBFT c/w small bowel obstruction; Gastrografin remained in stomach and proximal jejunum at 3.5 hours. Refractory nausea present today, feculent emesis 2-NG replaced to low intermittent suction; d/w Dr. Caldera. PICC line to be placed for TPN. Have discussed with nursing on several occasions. Blood pressure persistently elevated-IV hydralazine ordered x 1 to assess response. 12/21/17: N/V much improved. Over 2L has been suctioned via NGT since midnight. PICC line inserted to initiate TPN. Will stop NS to help prevent fluid overload. K improved to 3.5 after bolus yesterday. Na improved as well. WBC up slightly to 12.7; continue Levaquin and Flagyl BP improving; continue IV hydralazine, last dose given early this morning (442) CT abdomen/pelvis done today: Impression: 1. High-grade partial small bowel obstruction in the proximal to mid ileum of the right lower quadrant. This involves an approximately 15 cm long segment of thick-walled small bowel that could be due to ischemic, infectious or inflammatory enteritis. The amount of mesenteric edema present has significantly improved since the prior study and there is oral contrast seen throughout small and large bowel to the level of the rectum. 2. Small pleural effusions and small volume ascites. 12/22/17 Remains NPO with NG tube intact Planned for exploratory laparotomy with small bowel resection under the care of Dr. Caldera Continue on TPN via PICC line Will add Accuchecks given fasting BGM this morning was 199. Hypokalemia this morning down to 2.5. Patient given IV potassium supplementation. Will likely require more later today Continue Levaquin and Flagyl, WBC count 10.2 12/23/17 Remains on TPN via PICC line. Remains NPO with NG tube intact Hypokalemia- 3.2. Will given IV Potassium bags x2 bags. Will recheck later today Remains in A-fib RVR 110-120. BB was help last night, however was given this am. PRN Lopressor for tachycardia Work on weaning down oxygen as able. Currently on 2 liters. Levaquin and Flagyl discontinued. Eliquis remains on hold.
[2017-12-23 15:18] VITALS: BMI 22.3
[2017-12-23] MEDS ORDERED: ENOXAPARIN 40 MG/0.4 ML INJECTION SQ ONE (16:06)
[2017-12-23] MEDS ORDERED: ACETAMINOPHEN 325 MG TABLET PO SCH (17:30)
[2017-12-23] MEDS: ACETAMINOPHEN 325 MG TABLET PO SCH ×2 (17:30→20:37)
[2017-12-23] MEDS: POTASSIUM PHOSPHATE IV SCH (18:01)
[2017-12-23] MEDS: [UNRECOGNIZED DRUG - OTHER] IV SCH (18:01)
[2017-12-23] MEDS: MULTI VIT INFUSION IV SCH (18:01)
[2017-12-23] MEDS: FAT EMULSION 20% 100 ML IV SCH (20:34)
[2017-12-24] MEDS: INSULIN ASPART 100unit/ml INJECTION SQ PRN ×4 (02:26→20:57)
[2017-12-24] MEDS: ACETAMINOPHEN 325 MG TABLET PO SCH ×6 (03:30→23:01)
[2017-12-24] MEDS: LOSARTAN 100 MG TABLET PO SCH (10:08)
[2017-12-24] MEDS: FLECAINIDE 100 MG TABLET PO SCH ×2 (10:08→20:58)
--- NOTE | 2017-12-24 10:08 | Progress Note ---
DATE OF VISIT 12/23/2017 REASON FOR VISIT Postoperative followup. SUBJECTIVE Lisbeth has been doing okay. She had a reaction to her morphine. She was then given Dilaudid and slept. She denies any nausea. She said her pain is controlled this morning. OBJECTIVE VITAL SIGNS: Afebrile with stable vitals on 2 L/nasal cannula. Pulse is 106. GENERAL: The patient is awake, alert, in no acute distress. ABDOMEN: Soft, appropriately tender. Her dressing remains intact. She does have her NG tube in place with [id number] output per shift. IMPRESSION 1. Postop day #1 status post exploratory laparotomy with release of strangulated internal hernia and segmental small bowel resection - appropriate clinical progress. 2. Atrial fibrillation - she is back in atrial fibrillation and Cardiology has been consulted. 3. Chronic use of Eliquis due to atrial fibrillation - currently on hold. PLAN 1. Continue postoperative care. 2. I checked into my order for scheduled Tylenol but there was malfunction of the electronic medical record and the nurse was not being prompted for her scheduled oral Tylenol administration. This has been corrected by Pharmacy but had to be changed to a q.6h. scheduled time frame. 3. Okay to resume Eliquis tomorrow. 4. I will evaluate her bowel function and symptoms to see if a trial of NG tube clamping could be started tomorrow morning. I expect it will be some time before her bowel is functioning again after the obstruction. 5. Continue TPN until oral intake is adequate. MTDD
[2017-12-24] MEDS: PANTOPRAZOLE 40 MG INJECTION IVP SCH (10:09)
[2017-12-24] MEDS: APIXABAN 2.5 MG TABLET PO SCH ×2 (10:17→20:58)
--- NOTE | 2017-12-24 10:25 | Progress Note ---
DATE OF VISIT 12/24/2017 REASON FOR VISIT Postoperative followup. SUBJECTIVE Lisbeth is doing well today. She denies abdominal pain. She has been receiving scheduled Tylenol now and has not had any narcotics since yesterday afternoon. OBJECTIVE VITAL SIGNS: Afebrile with stable vitals on 2 L/nasal cannula. GENERAL: The patient is awake and alert. She is seated in the chair and is in no acute distress. ABDOMEN: Soft, nontender. Her dressing remains in position. IMPRESSION Postop day #2 status post exploratory laparotomy with release of strangulated hernia and segmental small bowel resection - doing well. PLAN 1. I will clamp her NG tube today to see if she can tolerate the lack of NG tube decompression. 2. Continue n.p.o. except for sips and chips. 3. Continue scheduled Tylenol. 4. I will discuss Hua catheter removal with the hospitalist team. If there is not a medical reason then her Hua should be discontinued today. 5. I have ordered ambulation to the hallways four times a day. MADAI
--- NOTE | 2017-12-24 10:30 | Pharmacy Consult-TPN/PPN ---
Pharmacy Consult-TPN/PPN - Laboratory Information Chemistry Turbidity < 20 (0-20) 12/24/17 04:31 Sodium 142 MEQ/L (136-146) 12/24/17 04:31 Potassium 3.6 MEQ/L (3.6-5) 12/24/17 04:31 Chloride 107 MEQ/L (98-107) 12/24/17 04:31 Carbon Dioxide 29 MEQ/L (22-30) 12/24/17 04:31 Anion Gap 6 meq/L (5-15) 12/24/17 04:31 BUN 19.0 MG/DL (7-17) H 12/24/17 04:31 Creatinine 0.4 mg/dL (0.7-1.2) L 12/24/17 04:31 Estimated Creat Clear 31 mL/min (>50) 12/24/17 04:31 GFR Calculation 152 mL/min (>60) 12/24/17 04:31 BUN/Creatinine Ratio 48 RATIO (6-26) H 12/24/17 04:31 Glucose 99 MG/DL (65-110) 12/24/17 04:31 Glucometer 193 mg/dL (65-110) 12/24/17 08:34 Calculated Osmolality 275 MOSM/KG (261-280) 12/24/17 04:31 Calcium 7.4 MG/DL (8.4-10.2) L 12/24/17 04:31 Phosphorus 2.4 MG/DL (2.5-4.5) L 12/23/17 04:01 Magnesium 2.0 MG/DL (1.6-2.3) 12/24/17 04:31 Total Bilirubin 0.30 MG/DL (0.20-1.30) 12/17/17 04:04 Icterus Index < 2 (0-7) 12/24/17 04:31 AST 22 U/L (14-36) 12/17/17 04:04 ALT 14 U/L (1-35) 12/17/17 04:04 Alkaline Phosphatase 52 U/L (38-126) 12/17/17 04:04 Lactate Dehydrogenase 432 U/L (313-618) 12/17/17 06:22 C-Reactive Protein 26.9 mg/L (0-9) H 12/18/17 04:19 Total Protein 7.1 g/dL (6.3-8.2) 12/17/17 04:04 Albumin 3.0 g/dL (3.5-5.0) L 12/20/17 04:02 Globulin 2.9 G/DL (2.4-3.6) 12/17/17 04:04 Albumin/Globulin Ratio 1.4 RATIO (1.1-2.2) 12/17/17 04:04 Lipase 115 U/L (23-300) 12/17/17 04:04 Plasma Lactate 1.0 MMOL/L (0.6-2.2) 12/17/17 06:22 Procalcitonin < 0.05 NG/ML 12/17/17 10:20 Specimen Hemolysis < 15 (0-25) 12/24/17 04:31 - Consult Information TPN Consult: Day 4 Continue the TPN as currently ordered. Thanks, Cristian Ruiz, [facility]
--- NOTE | 2017-12-24 12:56 | Cardiology Progress Note ---
Subjective Principal diagnosis: abdominal pain Interval history: Lisbeth is seen in follow up for A Fib with RVR. Her HR is variable but remains AFib. She denies chest pain, pressure, palpitations. Exam Vital signs: Temperature 97.7 F 12/24/17 07:00 Pulse Rate 125 H 12/24/17 07:00 Respiratory Rate 24 12/24/17 07:00 Blood Pressure 138/69 12/24/17 07:00 Pulse Oximetry 95 12/24/17 10:56 Inpatient Medications: Generic Name Dose Route Start Last Admin Trade Name Freq PRN Reason Stop Dose Admin Acetaminophen 325 mg 12/23/17 17:30 12/24/17 10:08 Tylenol PO 325 mg Q6HR JOSE Administration Apixaban 2.5 mg 12/17/17 21:00 12/24/17 10:17 Eliquis PO 2.5 mg BID JOSE Administration Flecainide Acetate 100 mg 12/17/17 21:00 12/24/17 10:08 Tambocor PO 100 mg BID JOSE Administration Hydralazine HCl 10 mg 12/20/17 16:06 12/21/17 04:43 Apresoline IVP 10 mg Q4H PRN Administration Hypertension Hydrochlorothiazide 25 mg 12/19/17 13:00 12/20/17 09:24 Hydrodiuril PO 25 mg DAILY JOSE Administration Hydromorphone HCl 0.5 mg 12/23/17 13:26 12/23/17 13:40 Dilaudid IVP 0.5 mg Q4H PRN Administration Pain Fat Emulsion Intravenous 100 mls @ 25 mls/hr 12/21/17 20:00 12/24/17 00:34 Intralipid 20% IV Infused 2000 JOSE Infusion Potassium Phosphate 20 meq/ 2,015.5455 mls @ 80 mls/hr 12/22/17 18:00 06:11 Multivitamins/Minerals 10 ml/ IV 80 mls/hr Chromium/Copper/Manganese/Zinc .Q24H JOSE Infusion 1 ml/ Amino Acids/ Electrolytes/Dextrose Protocol Insulin Aspart 1 - 5 unit 12/22/17 13:23 12/24/17 10:09 Novolog SQ 1 unit SS PRN Administration Hyperglycemia Protocol Losartan Potassium 100 mg 12/18/17 09:00 12/24/17 10:08 Cozaar PO 100 mg DAILY JOSE Administration Metoclopramide HCl 10 mg 12/20/17 07:53 12/20/17 14:03 Reglan IVP 10 mg Q6H PRN Administration Metoprolol Succinate 50 mg 12/17/17 21:00 12/24/17 10:08 Toprol Xl PO 50 mg BID JOSE Administration Metoprolol Tartrate 5 mg 12/22/17 17:58 Lopressor IVP Q4H PRN Systolic blood pressure Morphine Sulfate 1 - 4 mg 12/22/17 14:42 12/23/17 00:39 Morphine Sulf 2 Mg Inj IVP 2 mg Q2H PRN Administration Pain Ondansetron HCl 4 mg 12/17/17 09:43 12/20/17 17:25 Zofran IVP 4 mg Q6H PRN Administration Nausea &/or vomiting Pantoprazole Sodium 40 mg 12/17/17 13:30 12/24/17 10:09 Protonix Iv IVP 40 mg DAILY JOSE Administration Sodium Chloride 10 - 80 ml 12/17/17 03:52 12/22/17 05:39 Iv Flush IVF 10 ml PRN PRN Administration Flushing Sodium Chloride 500 ml 12/23/17 11:25 12/23/17 11:26 Normal Saline IV 500 ml PRN PRN Administration Throat Lozenges 5 spray 12/20/17 16:40 12/20/17 17:11 Chloraseptic Lawrence PO 4 spray Q2H PRN Administration Zolpidem Tartrate 5 mg 12/20/17 21:13 12/21/17 20:41 Ambien PO 5 mg HS PRN Administration Insomnia Discontinued Medications Generic Name Dose Route Start Last Admin Trade Name Freq PRN Reason Stop Dose Admin Acetaminophen 650 mg 12/22/17 14:45 Tylenol PO Q5H [facility] Acetaminophen 650 mg 12/23/17 17:30 Tylenol PO Q5HR [facility] Amino Acids/Electrolytes/Dextrose 1 each 12/21/17 09:24 12/21/17 19:50 Pharmacy Consult - Tpn 12/21/17 09:25 Not Given O ONE Enoxaparin Sodium 75 mg 12/17/17 07:20 12/17/17 07:30 Lovenox SQ 12/17/17 07:21 75 mg O ONE Administration Enoxaparin Sodium 40 mg 12/18/17 09:00 Lovenox SQ DAILY JOSE Enoxaparin Sodium 40 mg 12/23/17 16:06 12/23/17 17:30 Lovenox SQ 12/23/17 16:07 40 mg O ONE Administration Fentanyl 50 mcg 12/17/17 05:41 12/17/17 06:05 Fentanyl IVP 50 mcg O PRN Administration Hydralazine HCl 20 mg 12/19/17 10:37 12/20/17 03:37 Apresoline PO 20 mg Q6H PRN Administration Systolic blood pressure Hydralazine HCl 10 mg 12/20/17 15:28 12/20/17 15:33 Apresoline IVP 12/20/17 15:29 10 mg O ONE Administration Hydromorphone HCl 0.5 mg 12/17/17 03:52 12/17/17 04:14 Dilaudid IVP 12/17/17 03:53 0.5 mg O ONE Administration Sodium Chloride 500 mls @ 500 mls/hr 12/17/17 03:52 12/17/17 04:42 Normal Saline IV 12/17/17 04:51 Infused .Q1H ONE Infusion Metronidazole/Sodium Chloride 500 mg in 100 mls @ 100 mls/hr 12/17/17 09:45 12/22/17 12:22 Flagyl Iv Premix IV Infused Q8H JOSE Infusion Sodium Chloride 1,000 mls @ 75 mls/hr 12/17/17 09:45 12/17/17 11:15 Normal Saline IV Not Given .[id number] JOSE Levofloxacin/Dextrose 500 mg in 100 mls @ 100 mls/hr 12/17/17 09:45 12/22/17 13:40 Levaquin 500 Mg Premix IV Infused Q24H JOSE Infusion Lactated Ringer's 1,000 mls @ 100 mls/hr 12/17/17 10:15 12/18/17 08:30 Lactated Ringers IV Not Given .Q10H JOSE Sodium Chloride 1,000 mls @ 50 mls/hr 12/18/17 07:45 12/20/17 06:45 Normal Saline IV Infused .Q20H JOSE Infusion Sodium Chloride 1,000 mls @ 75 mls/hr 12/19/17 16:45 12/22/17 01:40 Normal Saline IV Infused .[id number] JOSE Infusion Lidocaine HCl 10 mg/ Potassium 100 mls @ 100 mls/hr 12/20/17 09:30 12/20/17 15:50 Chloride 10 meq/ Sodium IV 12/20/17 13:43 Infused Chloride .Q1H JOSE Infusion Lidocaine HCl 10 mg/ Potassium 100 mls @ 100 mls/hr 12/21/17 06:15 12/21/17 12:19 Chloride 10 meq/ Sodium IV 12/21/17 09:14 Infused Chloride .Q1H JOSE Infusion Multivitamins/Minerals 10 ml/ 2,011 mls @ 80 mls/hr 12/21/17 20:00 12/22/17 18:11 Chromium/Copper/Manganese/Zinc IV 12/22/17 18:00 Infused 1 ml/ Amino Acids/ .Q24H JOSE Infusion Electrolytes/Dextrose Protocol Lidocaine HCl 10 mg/ Potassium 100 mls @ 100 mls/hr 12/22/17 05:15 12/22/17 10:22 Chloride 10 meq/ Sodium IV 12/22/17 09:28 Infused Chloride .Q1H JOSE Infusion Lactated Ringer's 1,000 mls @ 50 mls/hr 12/22/17 10:00 12/22/17 16:12 Lactated Ringers IV Infused .Q20H JOSE Infusion Lidocaine HCl 10 mg/ Potassium 100 mls @ 100 mls/hr 12/22/17 18:00 12/22/17 20:50 Chloride 10 meq/ Sodium IV 12/22/17 19:59 Infused Chloride .Q1H JOSE Infusion Lidocaine HCl 10 mg/ Potassium 100 mls @ 100 mls/hr 12/23/17 10:15 12/23/17 14:30 Chloride 10 meq/ Sodium IV 12/23/17 12:14 Infused Chloride .Q1H JOSE Infusion Metoprolol Tartrate 5 mg 12/19/17 13:23 12/20/17 11:23 Lopressor IVP 5 mg Q6H PRN Administration Systolic blood pressure Morphine Sulfate 1 - 2 mg 12/17/17 09:43 12/18/17 01:55 Morphine Sulf 2 Mg Inj IVP 1 mg Q2H PRN Administration Pain Ondansetron HCl 4 mg 12/17/17 03:52 12/17/17 04:14 Zofran IVP 12/17/17 03:53 4 mg O ONE Administration Ondansetron HCl 4 mg 12/20/17 09:00 07/30/18 08:57 Zofran IVP 12/20/17 09:01 4 mg O ONE Administration Pneumococcal 7-Valent Conj Vacc 0.5 ml 12/17/17 12:27 12/17/17 15:55 Prevnar 13 IM 12/17/17 12:28 0.5 ml .ONCE ONE Administration Scopolamine 1 removal 12/23/17 09:30 12/23/17 09:03 Transderm-Scop Patch Removal TD 12/23/17 09:31 1 removal O ONE Administration Scopolamine 1 mg 12/20/17 09:30 12/20/17 09:50 Transderm-Scop Patch TD 12/20/17 09:31 1 mg Q3D JOSE Administration Zolpidem Tartrate 5 mg 12/19/17 21:10 12/19/17 21:25 Ambien PO 12/19/17 21:11 5 mg O ONE Administration - Constitutional no acute distress, well nourished, cooperative - Routine HEENT Exam Head: Present: normocephalic ENT: Present: mucous membranes dry - Routine Neck Exam Absent: JVD, carotid bruit - Routine Chest/Breast/Axilla Exam Chest wall: Absent: tenderness - Routine Respiratory Exam Present: CTA bilaterally. Absent: dyspnea, rales, wheezes - Routine Cardiovascular Exam Present: no murmur, irregular rhythm - Routine Abdominal Exam Present: soft - Routine Extremities Exam Present: no edema - Routine Skin Exam Present: intact, dry, warm - Routine Neurological Exam Present: alert - Routine Psychiatric Exam Present: normal affect - Urinary Catheter Management 2-way Urethral Cath placed during this visit: yes Insertion date: 12/22/17 Insertion time: 12:38 Results 12/24/17 04:31 12/24/17 04:31 CBC 12/24/17 Range/Units 04:31 WBC 10.8 (4.5-11.0) T/MM3 RBC 3.26 L (4.00-5.20) M/MM3 Hgb 10.2 L (12-16) GM/DL Hct 30.7 L (36-46) % Plt Count 219 (130-400) T/MM3 Neut # (Auto) 7.6 (1.8-7.7) T/MM3 Lymph # (Auto) 1.5 (1-4.8) T/MM3 Owen # (Auto) 1.4 H (0-0.8) T/MM3 Eos # (Auto) 0.3 (0-0.5) T/MM3 Baso # (Auto) 0.0 (0-0.2) T/MM3 Comprehensive Metabolic Panel 12/23/17 12/24/17 Range/Units 16:02 04:31 Sodium 143 142 (136-146) MEQ/L Potassium 3.7 3.6 (3.6-5) MEQ/L Chloride 110 H 107 (98-107) MEQ/L Carbon Dioxide 29 29 (22-30) MEQ/L BUN 18.0 H 19.0 H (7-17) MG/DL Creatinine 0.4 L 0.4 L (0.7-1.2) mg/dL Glucose 153 H 99 (65-110) MG/DL Calcium 7.4 L 7.4 L (8.4-10.2) MG/DL Intake and Output 12/23/17 12/24/17 12/24/17 22:59 06:59 14:59 Intake Total 254.667 / 781.465 4218.333 / 1073.333 Output Total 200 / 200 1000 / 1000 Balance 254.667 / 254.667 873.333 / 873.333 -1000 / -1000 Intake: IV 254.667 / 581.444 8095.333 / 1073.333 Fat Emulsion 20% 100 ml @ 25 100 / 100 mls/hr IV 2000 JOSE Rx#: [id number] POTASSIUM PHOSPHATE (mEq) 20 254.667 / 254.667 973.333 / 973.333 meq Multi-Vit Infusion 10 ml Multi-Trace Elements 1 ml In TPN - Standard Formula 2,000 ml @ 80 mls/hr IV .Q24H JOSE Rx#: [id number] Output: Urine Amount (Catheter) 200 / 200 300 / 300 Gastric Drainage 700 / 700 Left Nare 700 / 700 Other: Urine Appearance Cloudy Clear Urine Color Dark Luna Dark Luna Tea Colored Urine Odor Normal Weight 114 lb 3.191 oz 113 lb 5.082 oz Patient Weight 12/25/17 06:59 Weight 113 lb 5.082 oz Assessment and Plan - Assessment and Plan (1) A-fib Current visit: Yes Status: Chronic (2) S/P small bowel resection Current visit: Yes Status: Acute (3) Chronic anticoagulation Problem details: Eliquis Current visit: Yes Status: Chronic (4) Hypertension Current visit: Yes Status: Chronic - Assessment and Plan A-fib Current visit: Yes Status: Chronic - Paroxysmal, in SR on admit through 0001 on 12/22/17 - Flecainide not given 12/22/17, resumed 12/23/17, continue - Eliquis on hold last given 12/18/17 am dose - Okay with surgery to resume in am - continue to monitor telemetry - EKG prn rhythm change S/P small bowel resection Current visit: Yes Status: Acute per surgery Chronic anticoagulation Problem details: Eliquis Current visit: Yes Status: Chronic - resume in am Hypertension Current visit: Yes Status: Chronic stable on current therapy, continue current therapy Thank you for allowing us to participate in the care of this patient, we will follow along with you. 12/24/17 Eliquis resumed today - remains in A Fib, continue Flecainide - May consider DCCV if not converted, rate controlled on Flecainide/ Metoprolol. Hospital Course Summary Disclaimer: The visit summary below is not to be considered part of the above Progress Note. Hospital Course: Plan - 12/17/17: Admit, observation status Will consult Dr. Caldera for surgical evaluation and expertise. Will initiate Levaquin 500mg IV daily as well as Flagyl 500mg TID for treatment of suspected colitis as well as UTI. Will obtain blood cultures prior to treatment for complete evaluation. Lactate on admission was 1.0. Will keep NPO except for oral medications. Medication list verified with Dr. Dyer - current computer reconciliation is incorrect. Current home medications are as follows: * HCTZ 25mg QAM * Metoprolol succinate ER 50mg BID * Losartan 100mg daily * Citalopram 10mg daily * Fish oil 1000mg BID * Flax oil - 2 tbs over cereal daily * Calcium + D 600-200 mg-unit - 1 tab BID * Vitamin C - 1 tab BID * Eliquis 2.5mg BID * Flecainide 50mg - 2 tabs (100mg) BID Will continue home dosing of metoprolol, losartan, Eliquis and Flecainide and hold other home medications. Recheck labs in AM to monitor blood counts, electrolytes and renal function. Upon discharge, patient's care will be returned to her PCP, Dr. Dyer. Patient requests to be a FULL CODE. 12/18/17: Continue current antibiotics and NPO state pending further evaluation by Dr. Caldera Decrease LR to 50 cc/hour maintenance rate for now pending further plans Will keep NPO except for oral medications for now Will continue home dosing of metoprolol, losartan, Eliquis and Flecainide and hold other home medications for now Recheck labs in AM to monitor blood counts, electrolytes and renal function 12/19/17: Continue current antibiotics and CLD pending further evaluation by Dr. Caldera Continue to hold eliquis until trajectory more clear Stop IVF and allow clear liquid intake alone today Continue losartan and toprol; prn hydralazine ordered for systolic >150 Recheck labs in AM to monitor blood counts, electrolytes and renal function Repeat clean catch UA to ensure on occult resistant UTI driving leukocytosis Continue inpatient care at this time; still having symptoms and unable to take regular diet thus far Ambulate in the halls today with assistance 12/20/17: Increased nausea while preparing for SBFT. Added reglan and scopolamine patch. Replace IV potassium. Eliquis remains on hold. SBFT c/w small bowel obstruction; Gastrografin remained in stomach and proximal jejunum at 3.5 hours. Refractory nausea present today, feculent emesis 2-NG replaced to low intermittent suction; d/w Dr. Caldera. PICC line to be placed for TPN. Have discussed with nursing on several occasions. Blood pressure persistently elevated-IV hydralazine ordered x 1 to assess response. 12/21/17: N/V much improved. Over 2L has been suctioned via NGT since midnight. PICC line inserted to initiate TPN. Will stop NS to help prevent fluid overload. K improved to 3.5 after bolus yesterday. Na improved as well. WBC up slightly to 12.7; continue Levaquin and Flagyl BP improving; continue IV hydralazine, last dose given early this morning (442) CT abdomen/pelvis done today: Impression: 1. High-grade partial small bowel obstruction in the proximal to mid ileum of the right lower quadrant. This involves an approximately 15 cm long segment of thick-walled small bowel that could be due to ischemic, infectious or inflammatory enteritis. The amount of mesenteric edema present has significantly improved since the prior study and there is oral contrast seen throughout small and large bowel to the level of the rectum. 2. Small pleural effusions and small volume ascites. 12/22/17 Remains NPO with NG tube intact Planned for exploratory laparotomy with small bowel resection under the care of Dr. Caldera Continue on TPN via PICC line Will add Accuchecks given fasting BGM this morning was 199. Hypokalemia this morning down to 2.5. Patient given IV potassium supplementation. Will likely require more later today Continue Levaquin and Flagyl, WBC count 10.2 12/23/17 Remains on TPN via PICC line. Remains NPO with NG tube intact Hypokalemia- 3.2. Will given IV Potassium bags x2 bags. Will recheck later today Remains in A-fib RVR 110-120. BB was help last night, however was given this am. PRN Lopressor for tachycardia Work on weaning down oxygen as able. Currently on 2 liters. Levaquin and Flagyl discontinued. Eliquis remains on hold.
--- NOTE | 2017-12-24 14:22 | Progress Note ---
- Date 12/24/17 Subjective: Lisbeth is seen today in follow-up. She is proud to report that she has been up in the chair and ambulated once today. She continues to be frustrated with all the "tubes" referring to catheter, NG, nasal cannula. Overall, she is having no abdominal pain, just some postoperative soreness. Denies having nausea or vomiting. She is currently on 1 liter of oxygen by nasal cannula, however, saturations are 98%. Objective Vital signs: Temperature 98.2 F 12/24/17 12:51 Pulse Rate 103 H 12/24/17 12:51 Respiratory Rate 20 12/24/17 12:51 Blood Pressure 127/76 12/24/17 12:51 Pulse Oximetry 98 12/24/17 12:51 Height/Weight/BMI: Height 1.52 m Weight 51.4 kg Body Mass Index 22.3 - Constitutional Present: no acute distress, well nourished, well developed - Routine HEENT Exam Eye: Present: EOMI ENT: Present: mucous membranes moist, dentition normal - Routine Respiratory Exam Present: CTA bilaterally. Absent: wheezes - Routine Cardiovascular Exam Present: RRR, S1, S2. Absent: murmur - Routine Abdominal Exam Present: soft, non distended. Absent: normoactive bowel sounds (hypoactive), tenderness - Routine Extremities Exam Present: no edema, pulses intact - Routine Skin Exam Present: intact, dry, warm - Routine Neurological Exam Present: alert, oriented X3, CN II-XII intact - Routine Lymphatic Exam Lymphatic: Absent: adenopathy - Routine Psychiatric Exam Present: normal affect, normal thought process, cooperative Results - Labs CBC & Chem 7: 12/24/17 04:31 12/24/17 04:31 Microbiology Results: Microbiology 12/17/17 10:28 Peripheral/Iv Start Blood Culture - Final No Growth After 5 Days 12/17/17 10:20 Peripheral/Iv Start Blood Culture - Final No Growth After 5 Days 12/19/17 13:24 Urine, Voided (Cc/notcc) Urine Culture - Final No Growth After 2 Days 12/17/17 06:04 Urine, Voided (Cc/notcc) Urine Culture - Final Mixed Bacterial Cheri Present -No further testing will be performed Assessment and Plan (1) Abdominal pain Current visit: Yes Status: Acute (2) Colitis Current visit: Yes Status: Acute Assessment and Plan: Assessment S/P- Small bowel resection- 12/22/17 Acute colitis - resolved Small bowel obstruction- resolved Acute abdominal pain with nausea and vomiting- improving Pyuria and bacteruria; assx Hx atrial fibrillation, eliqius/toprol/flecainide --> Sinus on admission, eliquis on hold Atrial fibrillation/flutter-12/22/17 Hypertension Hypokalemia Hyponatremia Plan Remains nothing by mouth, NG tube clamped this morning as per Dr Caldera Will work on weaning down oxygen. Hua catheter removed today Continue to encourage ambulation for strengthening. Remains on TPN via PICC line. Chronic anticoagulation resume this morning-Ellik was 2.5 twice a day Encourage ambulation 4 times a day Continue to follow daily labs to follow blood counts, renal function and electrolytes DVT Prophylaxis: SCD's, Eliquis (currenlty held, last dose 12/18) GI Prophylaxis: Protonix Resuscitation Status: Full Code - Physician Narrative Physician: Reina Wylie MD Narrative: Date: 12/24/17 Time: 1442 I have independently evaluated and examined this patient. I reviewed the chart, the patient's history, and the PHYSICAL THERAPIST AIDE/PA's documented findings as above. We discussed and formulated the assessment and plan as above with additions as below: Mrs. Keyes reports mild discomfort when she ambulates but otherwise she feels fairly comfortable. No flatus since surgery but she reports no nausea in the NG tube was clamped. NAD Irregular cardiac rhythm, low-grade tachycardia Abdomen soft, moderately distended, bowel sounds present (versus NG generated sounds) Telemetry strips reviewed-persistent atrial fibrillation with low-grade tachycardia Eliquis resumed this morning, continue flecainide/metoprolol. Hua catheter discontinued. Hospital Course Summary Disclaimer: The visit summary below is not to be considered part of the above Progress Note. Hospital Course: Plan - 12/17/17: Admit, observation status Will consult Dr. Caldera for surgical evaluation and expertise. Will initiate Levaquin 500mg IV daily as well as Flagyl 500mg TID for treatment of suspected colitis as well as UTI. Will obtain blood cultures prior to treatment for complete evaluation. Lactate on admission was 1.0. Will keep NPO except for oral medications. Medication list verified with Dr. Dyer - current computer reconciliation is incorrect. Current home medications are as follows: * HCTZ 25mg QAM * Metoprolol succinate ER 50mg BID * Losartan 100mg daily * Citalopram 10mg daily * Fish oil 1000mg BID * Flax oil - 2 tbs over cereal daily * Calcium + D 600-200 mg-unit - 1 tab BID * Vitamin C - 1 tab BID * Eliquis 2.5mg BID * Flecainide 50mg - 2 tabs (100mg) BID Will continue home dosing of metoprolol, losartan, Eliquis and Flecainide and hold other home medications. Recheck labs in AM to monitor blood counts, electrolytes and renal function. Upon discharge, patient's care will be returned to her PCP, Dr. Dyer. Patient requests to be a FULL CODE. 12/18/17: Continue current antibiotics and NPO state pending further evaluation by Dr. Caldera Decrease LR to 50 cc/hour maintenance rate for now pending further plans Will keep NPO except for oral medications for now Will continue home dosing of metoprolol, losartan, Eliquis and Flecainide and hold other home medications for now Recheck labs in AM to monitor blood counts, electrolytes and renal function 12/19/17: Continue current antibiotics and CLD pending further evaluation by Dr. Caldera Continue to hold eliquis until trajectory more clear Stop IVF and allow clear liquid intake alone today Continue losartan and toprol; prn hydralazine ordered for systolic >150 Recheck labs in AM to monitor blood counts, electrolytes and renal function Repeat clean catch UA to ensure on occult resistant UTI driving leukocytosis Continue inpatient care at this time; still having symptoms and unable to take regular diet thus far Ambulate in the halls today with assistance 12/20/17: Increased nausea while preparing for SBFT. Added reglan and scopolamine patch. Replace IV potassium. Eliquis remains on hold. SBFT c/w small bowel obstruction; Gastrografin remained in stomach and proximal jejunum at 3.5 hours. Refractory nausea present today, feculent emesis 2-NG replaced to low intermittent suction; d/w Dr. Caldera. PICC line to be placed for TPN. Have discussed with nursing on several occasions. Blood pressure persistently elevated-IV hydralazine ordered x 1 to assess response. 12/21/17: N/V much improved. Over 2L has been suctioned via NGT since midnight. PICC line inserted to initiate TPN. Will stop NS to help prevent fluid overload. K improved to 3.5 after bolus yesterday. Na improved as well. WBC up slightly to 12.7; continue Levaquin and Flagyl BP improving; continue IV hydralazine, last dose given early this morning (3) CT abdomen/pelvis done today: Impression: 1. High-grade partial small bowel obstruction in the proximal to mid ileum of the right lower quadrant. This involves an approximately 15 cm long segment of thick-walled small bowel that could be due to ischemic, infectious or inflammatory enteritis. The amount of mesenteric edema present has significantly improved since the prior study and there is oral contrast seen throughout small and large bowel to the level of the rectum. 2. Small pleural effusions and small volume ascites. 12/22/17 Remains NPO with NG tube intact Planned for exploratory laparotomy with small bowel resection under the care of Dr. Caldera Continue on TPN via PICC line Will add Accuchecks given fasting BGM this morning was 199. Hypokalemia this morning down to 2.5. Patient given IV potassium supplementation. Will likely require more later today Continue Levaquin and Flagyl, WBC count 10.2 12/23/17 Remains on TPN via PICC line. Remains NPO with NG tube intact Hypokalemia- 3.2. Will given IV Potassium bags x2 bags. Will recheck later today Remains in A-fib RVR 110-120. BB was help last night, however was given this am. PRN Lopressor for tachycardia Work on weaning down oxygen as able. Currently on 2 liters. Levaquin and Flagyl discontinued. Eliquis remains on hold. 12/24/17 Remains nothing by mouth, NG tube clamped this morning as per Dr Caldera Will work on weaning down oxygen. Hua catheter removed today Continue to encourage ambulation for strengthening. Remains on TPN via PICC line. Chronic anticoagulation resume this am-Eliquis 2.5 twice a day Encourage ambulation 4 times a day
[2017-12-24] MEDS: POTASSIUM PHOSPHATE IV SCH (17:47)
[2017-12-24] MEDS: MULTI VIT INFUSION IV SCH (17:47)
[2017-12-24] MEDS: [UNRECOGNIZED DRUG - OTHER] IV SCH (17:47)
[2017-12-24] MEDS: FAT EMULSION 20% 100 ML IV SCH (19:31)
[2017-12-24] MEDS: ZOLPIDEM 5 MG TABLET PO PRN (20:58)
[2017-12-25] MEDS: ACETAMINOPHEN 325 MG TABLET PO SCH ×4 (02:02→20:48)
[2017-12-25] MEDS: INSULIN ASPART 100unit/ml INJECTION SQ PRN ×3 (02:06→19:50)
--- NOTE | 2017-12-25 08:05 | Pharmacy Consult-TPN/PPN ---
Pharmacy Consult-TPN/PPN - Laboratory Information Chemistry Turbidity < 20 (0-20) 12/25/17 04:12 Sodium 138 MEQ/L (136-146) 12/25/17 04:12 Potassium 4.0 MEQ/L (3.6-5) 12/25/17 04:12 Chloride 106 MEQ/L (98-107) 12/25/17 04:12 Carbon Dioxide 28 MEQ/L (22-30) 12/25/17 04:12 Anion Gap 4 meq/L (5-15) L 12/25/17 04:12 BUN 19.0 MG/DL (7-17) H 12/25/17 04:12 Creatinine 0.4 mg/dL (0.7-1.2) L 12/25/17 04:12 Estimated Creat Clear 31 mL/min (>50) 12/25/17 04:12 GFR Calculation 152 mL/min (>60) 12/25/17 04:12 BUN/Creatinine Ratio 48 RATIO (6-26) H 12/25/17 04:12 Glucose 86 MG/DL (65-110) 12/25/17 04:12 Glucometer 207 mg/dL (65-110) 12/25/17 02:04 Calculated Osmolality 267 MOSM/KG (261-280) 12/25/17 04:12 Calcium 7.6 MG/DL (8.4-10.2) L 12/25/17 04:12 Phosphorus 3.6 MG/DL (2.5-4.5) 12/25/17 04:12 Magnesium 2.0 MG/DL (1.6-2.3) 12/24/17 04:31 Total Bilirubin 0.30 MG/DL (0.20-1.30) 12/17/17 04:04 Icterus Index < 2 (0-7) 12/25/17 04:12 AST 22 U/L (14-36) 12/17/17 04:04 ALT 14 U/L (1-35) 12/17/17 04:04 Alkaline Phosphatase 52 U/L (38-126) 12/17/17 04:04 Lactate Dehydrogenase 432 U/L (313-618) 12/17/17 06:22 C-Reactive Protein 26.9 mg/L (0-9) H 12/18/17 04:19 Total Protein 7.1 g/dL (6.3-8.2) 12/17/17 04:04 Albumin 3.0 g/dL (3.5-5.0) L 12/20/17 04:02 Globulin 2.9 G/DL (2.4-3.6) 12/17/17 04:04 Albumin/Globulin Ratio 1.4 RATIO (1.1-2.2) 12/17/17 04:04 Lipase 115 U/L (23-300) 12/17/17 04:04 Plasma Lactate 1.0 MMOL/L (0.6-2.2) 12/17/17 06:22 Procalcitonin < 0.05 NG/ML 12/17/17 10:20 Specimen Hemolysis < 15 (0-25) 12/25/17 04:12 Intake and Output 12/24/17 12/25/17 12/26/17 06:59 06:59 06:59 Intake Total 2805.333 / 2805.333 1530.8795 / 1530.8795 Output Total 490 / 490 1350 / 1350 Balance 2315.333 / 2315.542 571.7963 / 180.8795 Weight 51.8 kg 51.4 kg Intake: IV 2805.333 / 2805.333 1480.8795 / 1480.8795 Fat Emulsion 20% 100 ml @ 25 100 / 100 100 / 100 mls/hr IV 2000 JOSE Rx#: [id number] Lidocaine 1% Inj 10 mg 200 / 200 Potassium Chloride Inj 10 meq In Ns 100 ml @ 100 mls/hr IV . Q1H JOSE Rx#:[id number] POTASSIUM PHOSPHATE (mEq) 20 2505.333 / 2505.333 1380.8795 / 1380.8795 meq Multi-Vit Infusion 10 ml Multi-Trace Elements 1 ml In TPN - Standard Formula 2,000 ml @ 80 mls/hr IV .Q24H JOSE Rx#: [id number] Oral 50 / 50 Output: Urine 290 / 290 250 / 250 Urine Amount (Catheter) 200 / 200 300 / 300 Gastric Drainage 800 / 800 Left Nare 800 / 800 Other: Urine Appearance Cloudy Clear Urine Color Dark Luna Dark Yellow Tea Colored Urine Odor Normal Normal # Voids 1 TPN THERAPY: DAY 5 All electrolytes are stable. Wt is stable. I/O as reported is stable. Will continue present TPN formula, infusing via PICC at 80ml/hr. Also receiving Fat Emulsion 20% 100ml, one bag daily to prevent EFAD and add calories. All this gives approximately 1500 kcal per day and 2020 mls of fluid per day. Will skip LAB panel tomorrow and order for Wednesday am. Thank you.
[2017-12-25] MEDS: PANTOPRAZOLE 40 MG INJECTION IVP SCH (09:58)
[2017-12-25] MEDS: APIXABAN 2.5 MG TABLET PO SCH ×2 (09:58→20:48)
[2017-12-25] MEDS: LOSARTAN 100 MG TABLET PO SCH (09:58)
[2017-12-25] MEDS: FLECAINIDE 100 MG TABLET PO SCH ×2 (09:58→20:48)
--- NOTE | 2017-12-25 11:20 | Progress Note ---
DATE OF SERVICE 12/25/2017 FINDINGS Mrs. Hernandez was seen this morning on rounds. The patient's family was present during rounds. The patient was without complaints today. She denied any abdominal pain. Her only complaint was that of a soreness within her throat and nose from her NG. PHYSICAL EXAM VITAL SIGNS: Afebrile, normotensive. Please refer to EMR. CHEST: Clear to auscultation bilaterally. HEART: Regular rate and rhythm. Normal S1 and S2 without gallops, murmurs or clicks. ABDOMEN: Dressing was removed. Incision is clean, dry and intact. No evidence for erythema or exudate. LABORATORY/RADIOGRAPHIC EVALUATION The patient had a BMP obtained today that was unremarkable. ASSESSMENT 87-year-old female status post exploratory laparotomy, lysis of adhesions, small -bowel resection. Patient doing well. PLAN The patient's NG has been clamped for 24 hours. She has not had any component of nausea. Will go ahead and DC NG today and begin on clear liquids. Continue to follow closely. Overall I am pleased with the patient's progress. MADAI
--- NOTE | 2017-12-25 11:29 | Progress Note ---
- Date 12/25/17 Subjective: Lisbeth is feeling better. Her NGT has been discontinued. She denies abdominal pain or nausea. Interestingly, she didn't recall that Dr. Armendariz was just in the room, but her reminded her. She denies feeling short of breath. She' s been ambulating to/from the bathroom and intends to go on a couple longer walks today. Objective Vital signs: Temperature 97.6 F 12/25/17 11:00 Pulse Rate 89 12/25/17 11:00 Respiratory Rate 16 12/25/17 11:00 Blood Pressure 136/80 12/25/17 11:00 Pulse Oximetry 97 12/25/17 11:00 Rhythm: Normal Sinus Rhythm Height/Weight/BMI: Height 1.52 m Weight 52.4 kg Body Mass Index 22.3 - Constitutional Present: no acute distress, well nourished, well developed, thin - Routine HEENT Exam Head: Present: normocephalic Eye: Present: PERRL. Absent: conjunctival icterus, scleral injection ENT: Present: mucous membranes moist, oropharynx clear - Routine Respiratory Exam Present: CTA bilaterally - Routine Cardiovascular Exam Present: irregularly irregular - Routine Abdominal Exam Present: soft. Absent: normoactive bowel sounds (hypoactive) Comments: midline incision is stapled and without erythema or drainage - Routine Extremities Exam Present: no edema - Routine Musculoskeletal Exam Musculoskeletal: Present: moving extremities well - Routine Skin Exam Present: dry, warm - Routine Neurological Exam Present: alert, CN II-XII intact, normal speech - Routine Psychiatric Exam Present: cooperative Results - Labs CBC & Chem 7: 12/24/17 04:31 12/25/17 04:12 Microbiology Results: Microbiology 12/17/17 10:28 Peripheral/Iv Start Blood Culture - Final No Growth After 5 Days 12/17/17 10:20 Peripheral/Iv Start Blood Culture - Final No Growth After 5 Days 12/19/17 13:24 Urine, Voided (Cc/notcc) Urine Culture - Final No Growth After 2 Days 12/17/17 06:04 Urine, Voided (Cc/notcc) Urine Culture - Final Mixed Bacterial Cheri Present -No further testing will be performed Assessment and Plan (1) Abdominal pain Current visit: Yes Status: Acute (2) Colitis Current visit: Yes Status: Acute Assessment and Plan: Assessment S/P- Small bowel resection for small bowel obstruction - 12/22/17 Acute colitis - resolved Pyuria and bacteruria; assx Hx atrial fibrillation, Eliquis/Toprol/flecainide Sinus on admission Atrial fibrillation/flutter-12/22/17 Hypertension Hypokalemia - resolved Hyponatremia - resolved Plan D/W Dr. Armendariz - NGT discontinued and diet advanced to clear liquids. Continue TPN until oral intake stabilizes. Off oxygen, saturating well on room air. BMP stable. Encourage activity/ambulation Continue meds/anticoagulation for A-fib; cardiology following. DVT Prophylaxis: SCD's, Eliquis GI Prophylaxis: Protonix Resuscitation Status: Full Code - Physician Narrative Physician: Reina Wylie MD Narrative: Date: 12/25/17 Time: 1425 I have independently evaluated and examined this patient. I reviewed the chart, the patient's history, and the BEEF BREAKER/PA's documented findings as above. We discussed and formulated the assessment and plan as above with additions as below: Mrs. Hernandez was seen earlier this morning after discontinuation of NG tube. She was tolerating water and Sprite and looking forward to having a popsicle at lunch. She denied nausea and reports abdominal pain has improved significantly in the past 24 hours when she is up to the bathroom. NAD, alert; respirations nonlabored, diminished airflow, breath sounds clear Sparse bowel sounds, abdomen soft with mild generalized tenderness Doing well, clear liquids today and reassess. Voiding without difficulty following removal of Hua catheter yesterday. Pathology noted-benign segment of small bowel with focal early ischemic change and mild edema, no atypia or significant inflammatory infiltrate. Hospital Course Summary Disclaimer: The visit summary below is not to be considered part of the above Progress Note. Hospital Course: Plan - 12/17/17: Admit, observation status Will consult Dr. Caldera for surgical evaluation and expertise. Will initiate Levaquin 500mg IV daily as well as Flagyl 500mg TID for treatment of suspected colitis as well as UTI. Will obtain blood cultures prior to treatment for complete evaluation. Lactate on admission was 1.0. Will keep NPO except for oral medications. Medication list verified with Dr. Dyer - current computer reconciliation is incorrect. Current home medications are as follows: * HCTZ 25mg QAM * Metoprolol succinate ER 50mg BID * Losartan 100mg daily * Citalopram 10mg daily * Fish oil 1000mg BID * Flax oil - 2 tbs over cereal daily * Calcium + D 600-200 mg-unit - 1 tab BID * Vitamin C - 1 tab BID * Eliquis 2.5mg BID * Flecainide 50mg - 2 tabs (100mg) BID Will continue home dosing of metoprolol, losartan, Eliquis and Flecainide and hold other home medications. Recheck labs in AM to monitor blood counts, electrolytes and renal function. Upon discharge, patient's care will be returned to her PCP, Dr. Dyer. Patient requests to be a FULL CODE. 12/18/17: Continue current antibiotics and NPO state pending further evaluation by Dr. Caldera Decrease LR to 50 cc/hour maintenance rate for now pending further plans Will keep NPO except for oral medications for now Will continue home dosing of metoprolol, losartan, Eliquis and Flecainide and hold other home medications for now Recheck labs in AM to monitor blood counts, electrolytes and renal function 12/19/17: Continue current antibiotics and CLD pending further evaluation by Dr. Caldera Continue to hold eliquis until trajectory more clear Stop IVF and allow clear liquid intake alone today Continue losartan and toprol; prn hydralazine ordered for systolic >150 Recheck labs in AM to monitor blood counts, electrolytes and renal function Repeat clean catch UA to ensure on occult resistant UTI driving leukocytosis Continue inpatient care at this time; still having symptoms and unable to take regular diet thus far Ambulate in the halls today with assistance 12/20/17: Increased nausea while preparing for SBFT. Added reglan and scopolamine patch. Replace IV potassium. Eliquis remains on hold. SBFT c/w small bowel obstruction; Gastrografin remained in stomach and proximal jejunum at 3.5 hours. Refractory nausea present today, feculent emesis 2-NG replaced to low intermittent suction; d/w Dr. Caldera. PICC line to be placed for TPN. Have discussed with nursing on several occasions. Blood pressure persistently elevated-IV hydralazine ordered x 1 to assess response. 12/21/17: N/V much improved. Over 2L has been suctioned via NGT since midnight. PICC line inserted to initiate TPN. Will stop NS to help prevent fluid overload. K improved to 3.5 after bolus yesterday. Na improved as well. WBC up slightly to 12.7; continue Levaquin and Flagyl BP improving; continue IV hydralazine, last dose given early this morning (442) CT abdomen/pelvis done today: Impression: 1. High-grade partial small bowel obstruction in the proximal to mid ileum of the right lower quadrant. This involves an approximately 15 cm long segment of thick-walled small bowel that could be due to ischemic, infectious or inflammatory enteritis. The amount of mesenteric edema present has significantly improved since the prior study and there is oral contrast seen throughout small and large bowel to the level of the rectum. 2. Small pleural effusions and small volume ascites. 12/22/17 Remains NPO with NG tube intact Planned for exploratory laparotomy with small bowel resection under the care of Dr. Caldera Continue on TPN via PICC line Will add Accuchecks given fasting BGM this morning was 199. Hypokalemia this morning down to 2.5. Patient given IV potassium supplementation. Continue Levaquin and Flagyl, WBC count 10.2 12/23/17 Remains on TPN via PICC line. Remains NPO with NG tube intact Hypokalemia- 3.2. Will given IV Potassium bags x2 bags. Will recheck later today Remains in A-fib RVR 110-120. BB was help last night, however was given this am. PRN Lopressor for tachycardia Work on weaning down oxygen as able. Currently on 2 liters. Levaquin and Flagyl discontinued. Eliquis remains on hold. 12/24/17 Remains nothing by mouth, NG tube clamped this morning Will work on weaning down oxygen. Eliquis resumed this morning, continue flecainide/metoprolol. Hua catheter discontinued. 12/25/17 D/W Dr. Armendariz - MARCELA discontinued and diet advanced to clear liquids. Continue TPN until oral intake stabilizes. Off oxygen, saturating well on room air.
[2017-12-25] MEDS: SALINE FLUSH 10ml SYRINGE IVF PRN (17:48)
[2017-12-25] MEDS: [UNRECOGNIZED DRUG - OTHER] IV SCH (17:48)
[2017-12-25] MEDS: MULTI VIT INFUSION IV SCH (17:48)
[2017-12-25] MEDS: POTASSIUM PHOSPHATE IV SCH (17:48)
[2017-12-25] MEDS: FAT EMULSION 20% 100 ML IV SCH (19:43)
[2017-12-25] MEDS: ZOLPIDEM 5 MG TABLET PO PRN (20:49)
[2017-12-26] MEDS: INSULIN ASPART 100unit/ml INJECTION SQ PRN ×2 (00:58→07:51)
[2017-12-26] MEDS: ACETAMINOPHEN 325 MG TABLET PO SCH ×4 (03:41→20:49)
[2017-12-26] MEDS: PANTOPRAZOLE 40 MG TABLET PO SCH (05:47)
--- NOTE | 2017-12-26 08:17 | Progress Note ---
- Date 12/26/17 Subjective: Lisbeth is doing well this morning. She rested well through the night. She is eager for her diet to be advanced - she's been tolerating clear liquids without abdominal pain, nausea/vomiting. She has not been passing flatus. She denies feeling dizzy when she ambulates. No SOA or chest pain. Objective Vital signs: Temperature 97.3 F 12/26/17 07:23 Pulse Rate 91 12/26/17 07:23 Respiratory Rate 16 12/26/17 07:23 Blood Pressure 110/60 12/26/17 07:23 Pulse Oximetry 98 12/26/17 08:10 Rhythm: Normal Sinus Rhythm Height/Weight/BMI: Height 1.52 m Weight 52.6 kg Body Mass Index 22.3 - Constitutional Present: no acute distress, well nourished, well developed, thin - Routine HEENT Exam Head: Present: normocephalic Eye: Present: PERRL. Absent: conjunctival icterus, scleral injection ENT: Present: mucous membranes moist - Routine Respiratory Exam Present: CTA bilaterally - Routine Cardiovascular Exam Present: S1, S2, irregularly irregular - Routine Abdominal Exam Present: soft. Absent: normoactive bowel sounds (hypoactive) - Routine Extremities Exam Present: no edema, pulses intact. Absent: calf tenderness - Routine Musculoskeletal Exam Musculoskeletal: Present: no clubbing or cyanosis - Routine Skin Exam Present: intact, dry, warm - Routine Neurological Exam Present: alert, oriented X3, CN II-XII intact, normal speech - Routine Psychiatric Exam Present: normal affect, normal thought process, cooperative Results - Labs CBC & Chem 7: 12/26/17 05:35 12/25/17 04:12 Microbiology Results: Microbiology 12/17/17 10:28 Peripheral/Iv Start Blood Culture - Final No Growth After 5 Days 12/17/17 10:20 Peripheral/Iv Start Blood Culture - Final No Growth After 5 Days 12/19/17 13:24 Urine, Voided (Cc/notcc) Urine Culture - Final No Growth After 2 Days 12/17/17 06:04 Urine, Voided (Cc/notcc) Urine Culture - Final Mixed Bacterial Cheri Present -No further testing will be performed Assessment and Plan (1) Abdominal pain Current visit: Yes Status: Acute (2) Colitis Current visit: Yes Status: Acute Assessment and Plan: Assessment S/P- Small bowel resection for small bowel obstruction - 12/22/17 Acute colitis - resolved Pyuria and bacteruria; assx Hx atrial fibrillation, Eliquis/Toprol/flecainide Sinus on admission Atrial fibrillation/flutter-12/22/17 Hypertension Hypokalemia - resolved Hyponatremia - resolved Plan Tolerating clear liquids well though bowel sounds are hypoactive, last BM 12/22 - will defer diet advancement to Dr. Armendariz. Continue TPN until oral intake stabilizes. CBC stable, hgb 9.5. Continue meds/anticoagulation for A-fib; cardiology following. DVT Prophylaxis: SCD's, Eliquis GI Prophylaxis: Protonix Resuscitation Status: Full Code - Physician Narrative Physician: Reina Wylie MD Narrative: Date: 12/26/17 Time: 1225 I have independently evaluated and examined this patient. I reviewed the chart, the patient's history, and the EAR MOLD LABORATORY TECHNICIAN/PA's documented findings as above. We discussed and formulated the assessment and plan as above with additions as below: Mrs. Hernandez reports good tolerance of clear liquids and that she was able to consume her entire clear liquid tray this morning without nausea or abdominal discomfort; no flatus or bowel movement since surgery reported when she was seen earlier today. Later this morning she had a small bowel movement. NAD, alert, generalized pallor Abdomen soft, mildly tender mid abdomen over incision but otherwise nontender, bowel sounds present Advanced to full liquids; plan to discontinue TPN later today after decreasing to 50% rate at 2:00 this afternoon. Monitor blood sugars closely as TPN is titrated off. Discussed with Dr. Armendariz. Hospital Course Summary Disclaimer: The visit summary below is not to be considered part of the above Progress Note. Hospital Course: Plan - 12/17/17: Admit, observation status Will consult Dr. Caldera for surgical evaluation and expertise. Will initiate Levaquin 500mg IV daily as well as Flagyl 500mg TID for treatment of suspected colitis as well as UTI. Will obtain blood cultures prior to treatment for complete evaluation. Lactate on admission was 1.0. Will keep NPO except for oral medications. Medication list verified with Dr. Dyer - current computer reconciliation is incorrect. Current home medications are as follows: * HCTZ 25mg QAM * Metoprolol succinate ER 50mg BID * Losartan 100mg daily * Citalopram 10mg daily * Fish oil 1000mg BID * Flax oil - 2 tbs over cereal daily * Calcium + D 600-200 mg-unit - 1 tab BID * Vitamin C - 1 tab BID * Eliquis 2.5mg BID * Flecainide 50mg - 2 tabs (100mg) BID Will continue home dosing of metoprolol, losartan, Eliquis and Flecainide and hold other home medications. Recheck labs in AM to monitor blood counts, electrolytes and renal function. Upon discharge, patient's care will be returned to her PCP, Dr. Dyer. Patient requests to be a FULL CODE. 12/18/17: Continue current antibiotics and NPO state pending further evaluation by Dr. Caldera Decrease LR to 50 cc/hour maintenance rate for now pending further plans Will keep NPO except for oral medications for now Will continue home dosing of metoprolol, losartan, Eliquis and Flecainide and hold other home medications for now Recheck labs in AM to monitor blood counts, electrolytes and renal function 12/19/17: Continue current antibiotics and CLD pending further evaluation by Dr. Caldera Continue to hold eliquis until trajectory more clear Stop IVF and allow clear liquid intake alone today Continue losartan and toprol; prn hydralazine ordered for systolic >150 Recheck labs in AM to monitor blood counts, electrolytes and renal function Repeat clean catch UA to ensure on occult resistant UTI driving leukocytosis Continue inpatient care at this time; still having symptoms and unable to take regular diet thus far Ambulate in the halls today with assistance 12/20/17: Increased nausea while preparing for SBFT. Added reglan and scopolamine patch. Replace IV potassium. Eliquis remains on hold. SBFT c/w small bowel obstruction; Gastrografin remained in stomach and proximal jejunum at 3.5 hours. Refractory nausea present today, feculent emesis 2-NG replaced to low intermittent suction; d/w Dr. Caldera. PICC line to be placed for TPN. Have discussed with nursing on several occasions. Blood pressure persistently elevated-IV hydralazine ordered x 1 to assess response. 12/21/17: N/V much improved. Over 2L has been suctioned via NGT since midnight. PICC line inserted to initiate TPN. Will stop NS to help prevent fluid overload. K improved to 3.5 after bolus yesterday. Na improved as well. WBC up slightly to 12.7; continue Levaquin and Flagyl BP improving; continue IV hydralazine, last dose given early this morning (442) CT abdomen/pelvis done today: Impression: 1. High-grade partial small bowel obstruction in the proximal to mid ileum of the right lower quadrant. This involves an approximately 15 cm long segment of thick-walled small bowel that could be due to ischemic, infectious or inflammatory enteritis. The amount of mesenteric edema present has significantly improved since the prior study and there is oral contrast seen throughout small and large bowel to the level of the rectum. 2. Small pleural effusions and small volume ascites. 12/22/17 Remains NPO with NG tube intact Planned for exploratory laparotomy with small bowel resection under the care of Dr. Caldera Continue on TPN via PICC line Will add Accuchecks given fasting BGM this morning was 199. Hypokalemia this morning down to 2.5. Patient given IV potassium supplementation. Continue Levaquin and Flagyl, WBC count 10.2 12/23/17 Remains on TPN via PICC line. Remains NPO with NG tube intact Hypokalemia- 3.2. Will given IV Potassium bags x2 bags. Will recheck later today Remains in A-fib RVR 110-120. BB was help last night, however was given this am. PRN Lopressor for tachycardia Work on weaning down oxygen as able. Currently on 2 liters. Levaquin and Flagyl discontinued. Eliquis remains on hold. 12/24/17 Remains nothing by mouth, NG tube clamped this morning Will work on weaning down oxygen. Eliquis resumed this morning, continue flecainide/metoprolol. Hua catheter discontinued. 12/25/17 D/W Dr. Armendariz - MARCELA discontinued and diet advanced to clear liquids. Continue TPN until oral intake stabilizes. Off oxygen, saturating well on room air. 12/26/17 Tolerating clear liquids well; small bowel movement this morning. Diet advanced to full liquids. TPN to be titrated off. CBC stable, hgb 9.5.
[2017-12-26] MEDS: LOSARTAN 100 MG TABLET PO SCH (08:21)
[2017-12-26] MEDS: APIXABAN 2.5 MG TABLET PO SCH ×2 (08:21→20:49)
[2017-12-26] MEDS: FLECAINIDE 100 MG TABLET PO SCH ×2 (08:21→20:49)
[2017-12-26] MEDS ORDERED: ACETAMINOPHEN 325 MG TABLET PO SCH (13:00)
[2017-12-26] MEDS ORDERED: [UNRECOGNIZED DRUG - OTHER] IV SCH (14:00)
[2017-12-26] MEDS ORDERED: MULTI VIT INFUSION IV SCH (14:00)
[2017-12-26] MEDS ORDERED: POTASSIUM PHOSPHATE IV SCH (14:00)
[2017-12-26] MEDS: ZOLPIDEM 5 MG TABLET PO PRN (20:49)
[2017-12-27] MEDS: ACETAMINOPHEN 325 MG TABLET PO SCH ×4 (04:18→20:34)
[2017-12-27] MEDS: PANTOPRAZOLE 40 MG TABLET PO SCH (06:10)
[2017-12-27] MEDS: APIXABAN 2.5 MG TABLET PO SCH ×2 (08:13→20:35)
[2017-12-27] MEDS: FLECAINIDE 100 MG TABLET PO SCH ×2 (08:13→20:35)
[2017-12-27] MEDS: LOSARTAN 100 MG TABLET PO SCH (08:14)
--- NOTE | 2017-12-27 08:59 | Progress Note ---
DATE 12/26/2017 FINDINGS Mrs. Hernandez was seen this morning on rounds. The patient states that she did have a small bowel movement and some flatus this morning. She is feeling "better". OBJECTIVE VITALS: Afebrile. Normotensive. Please refer to EMR. ABDOMEN: Soft. Minimal incisional tenderness present. No evidence for guarding or rebound. LABORATORY/RADIOGRAPHIC EVALUATION Patient had a CBC today and her white count was 8.5. Hemoglobin is slightly down but overall stable at 9.5. ASSESSMENT 87-year-old female status post exploratory laparotomy, small bowel resection, patient currently doing well. PLAN Will go ahead and advance to full liquids. Will otherwise continue with current care. Will DC TPN. I am pleased with patient's progress. MTDD
--- NOTE | 2017-12-27 10:43 | Cardiology Progress Note ---
<Karlie Blackman - Last Filed: 12/27/17 14:05> Subjective Principal diagnosis: abdominal pain Interval history: Lisbeth is seen in follow up for A Fib with RVR. Her HR is variable but remains AFib. She denies chest pain, pressure, palpitations. Exam Vital signs: Temperature 96.4 F L 12/27/17 07:33 Pulse Rate 66 12/27/17 08:00 Respiratory Rate 16 12/27/17 07:33 Blood Pressure 152/63 H 12/27/17 07:33 Pulse Oximetry 98 12/27/17 09:09 Inpatient Medications: Generic Name Dose Route Start Last Admin Trade Name Freq PRN Reason Stop Dose Admin Acetaminophen 325 mg 12/23/17 17:30 12/27/17 08:13 Tylenol PO 325 mg Q6HR JOSE Administration Apixaban 2.5 mg 12/17/17 21:00 12/27/17 08:13 Eliquis PO 2.5 mg BID JOSE Administration Flecainide Acetate 100 mg 12/17/17 21:00 12/27/17 08:13 Tambocor PO 100 mg BID JOSE Administration Hydralazine HCl 10 mg 12/20/17 16:06 12/21/17 04:43 Apresoline IVP 10 mg Q4H PRN Administration Hypertension Hydrochlorothiazide 25 mg 12/19/17 13:00 12/20/17 09:24 Hydrodiuril PO 25 mg DAILY JOSE Administration Hydromorphone HCl 0.5 mg 12/23/17 13:26 12/23/17 13:40 Dilaudid IVP 0.5 mg Q4H PRN Administration Pain Insulin Aspart 1 - 5 unit 12/22/17 13:23 12/26/17 07:51 Novolog SQ 1 unit SS PRN Administration Hyperglycemia Protocol Losartan Potassium 100 mg 12/18/17 09:00 12/27/17 08:14 Cozaar PO 100 mg DAILY JOSE Administration Metoclopramide HCl 10 mg 12/20/17 07:53 12/20/17 14:03 Reglan IVP 10 mg Q6H PRN Administration Metoprolol Succinate 50 mg 12/17/17 21:00 12/27/17 08:14 Toprol Xl PO 50 mg BID JOSE Administration Metoprolol Tartrate 5 mg 12/22/17 17:58 Lopressor IVP Q4H PRN Systolic blood pressure Morphine Sulfate 1 - 4 mg 12/22/17 14:42 12/23/17 00:39 Morphine Sulf 2 Mg Inj IVP 2 mg Q2H PRN Administration Pain Ondansetron HCl 4 mg 12/17/17 09:43 12/20/17 17:25 Zofran IVP 4 mg Q6H PRN Administration Nausea &/or vomiting Pantoprazole Sodium 40 mg 12/26/17 06:30 12/27/17 06:10 Protonix Tab PO 40 mg ACB JOSE Administration Sodium Chloride 10 - 80 ml 12/17/17 03:52 12/25/17 17:48 Iv Flush IVF 20 ml PRN PRN Administration Flushing Sodium Chloride 500 ml 12/23/17 11:25 12/23/17 11:26 Normal Saline IV 500 ml PRN PRN Administration Throat Lozenges 5 spray 12/20/17 16:40 12/20/17 17:11 Chloraseptic Latta PO 4 spray Q2H PRN Administration Zolpidem Tartrate 5 mg 12/20/17 21:13 12/26/17 20:49 Ambien PO 5 mg HS PRN Administration Insomnia Discontinued Medications Generic Name Dose Route Start Last Admin Trade Name Freq PRN Reason Stop Dose Admin Acetaminophen 650 mg 12/22/17 14:45 12/24/17 23:01 Tylenol PO Not Given Q5H [facility] Acetaminophen 650 mg 12/23/17 17:30 Tylenol PO Q5HR [facility] Amino Acids/Electrolytes/Dextrose 1 each 12/21/17 09:24 12/21/17 19:50 Pharmacy Consult - Tpn 12/21/17 09:25 Not Given O ONE Enoxaparin Sodium 75 mg 12/17/17 07:20 12/17/17 07:30 Lovenox SQ 12/17/17 07:21 75 mg O ONE Administration Enoxaparin Sodium 40 mg 12/18/17 09:00 Lovenox SQ DAILY [facility] Enoxaparin Sodium 40 mg 12/23/17 16:06 12/23/17 17:30 Lovenox SQ 12/23/17 16:07 40 mg O ONE Administration Fentanyl 50 mcg 12/17/17 05:41 12/17/17 06:05 Fentanyl IVP 50 mcg O PRN Administration Hydralazine HCl 20 mg 12/19/17 10:37 12/20/17 03:37 Apresoline PO 20 mg Q6H PRN Administration Systolic blood pressure Hydralazine HCl 10 mg 12/20/17 15:28 12/20/17 15:33 Apresoline IVP 12/20/17 15:29 10 mg O ONE Administration Hydromorphone HCl 0.5 mg 12/17/17 03:52 12/17/17 04:14 Dilaudid IVP 12/17/17 03:53 0.5 mg O ONE Administration Sodium Chloride 500 mls @ 500 mls/hr 12/17/17 03:52 12/17/17 04:42 Normal Saline IV 12/17/17 04:51 Infused .Q1H ONE Infusion Metronidazole/Sodium Chloride 500 mg in 100 mls @ 100 mls/hr 12/17/17 09:45 12/22/17 12:22 Flagyl Iv Premix IV Infused Q8H JOSE Infusion Sodium Chloride 1,000 mls @ 75 mls/hr 12/17/17 09:45 12/17/17 11:15 Normal Saline IV Not Given .[id number] JOSE Levofloxacin/Dextrose 500 mg in 100 mls @ 100 mls/hr 12/17/17 09:45 12/22/17 13:40 Levaquin 500 Mg Premix IV Infused Q24H JOSE Infusion Lactated Ringer's 1,000 mls @ 100 mls/hr 12/17/17 10:15 12/18/17 08:30 Lactated Ringers IV Not Given .Q10H JOSE Sodium Chloride 1,000 mls @ 50 mls/hr 12/18/17 07:45 12/20/17 06:45 Normal Saline IV Infused .Q20H JOSE Infusion Sodium Chloride 1,000 mls @ 75 mls/hr 12/19/17 16:45 12/22/17 01:40 Normal Saline IV Infused .[id number] JOSE Infusion Lidocaine HCl 10 mg/ Potassium 100 mls @ 100 mls/hr 12/20/17 09:30 12/20/17 15:50 Chloride 10 meq/ Sodium IV 12/20/17 13:43 Infused Chloride .Q1H JOSE Infusion Lidocaine HCl 10 mg/ Potassium 100 mls @ 100 mls/hr 12/21/17 06:15 12/21/17 12:19 Chloride 10 meq/ Sodium IV 12/21/17 09:14 Infused Chloride .Q1H JOSE Infusion Multivitamins/Minerals 10 ml/ 2,011 mls @ 80 mls/hr 12/21/17 20:00 12/22/17 18:11 Chromium/Copper/Manganese/Zinc IV 12/22/17 18:00 Infused 1 ml/ Amino Acids/ .Q24H JOSE Infusion Electrolytes/Dextrose Protocol Fat Emulsion Intravenous 100 mls @ 25 mls/hr 12/21/17 20:00 12/26/17 00:25 Intralipid 20% IV Infused 2000 JOSE Infusion Lidocaine HCl 10 mg/ Potassium 100 mls @ 100 mls/hr 12/22/17 05:15 12/22/17 10:22 Chloride 10 meq/ Sodium IV 12/22/17 09:28 Infused Chloride .Q1H JOSE Infusion Lactated Ringer's 1,000 mls @ 50 mls/hr 12/22/17 10:00 12/22/17 16:12 Lactated Ringers IV Infused .Q20H JOSE Infusion Potassium Phosphate 20 meq/ 2,015.5455 mls @ 80 mls/hr 12/22/17 18:00 18:54 Multivitamins/Minerals 10 ml/ IV 12/26/17 14:00 Infused Chromium/Copper/Manganese/Zinc .Q24H JOSE Infusion 1 ml/ Amino Acids/ Electrolytes/Dextrose Protocol Lidocaine HCl 10 mg/ Potassium 100 mls @ 100 mls/hr 12/22/17 18:00 12/22/17 20:50 Chloride 10 meq/ Sodium IV 12/22/17 19:59 Infused Chloride .Q1H JOSE Infusion Lidocaine HCl 10 mg/ Potassium 100 mls @ 100 mls/hr 12/23/17 10:15 12/23/17 14:30 Chloride 10 meq/ Sodium IV 12/23/17 12:14 Infused Chloride .Q1H JOSE Infusion Potassium Phosphate 20 meq/ 2,015.5455 mls @ 40 mls/hr 12/26/17 14:00 14:19 Multivitamins/Minerals 10 ml/ IV 12/26/17 22:00 Not Given Chromium/Copper/Manganese/Zinc .Q24H JOSE 1 ml/ Amino Acids/ Electrolytes/Dextrose Protocol Metoprolol Tartrate 5 mg 12/19/17 13:23 12/20/17 11:23 Lopressor IVP 5 mg Q6H PRN Administration Systolic blood pressure Morphine Sulfate 1 - 2 mg 12/17/17 09:43 12/18/17 01:55 Morphine Sulf 2 Mg Inj IVP 1 mg Q2H PRN Administration Pain Ondansetron HCl 4 mg 12/17/17 03:52 12/17/17 04:14 Zofran IVP 12/17/17 03:53 4 mg O ONE Administration Ondansetron HCl 4 mg 12/20/17 09:00 12/20/17 08:57 Zofran IVP 12/20/17 09:01 4 mg O ONE Administration Pantoprazole Sodium 40 mg 12/17/17 13:30 12/25/17 09:58 Protonix Iv IVP 40 mg DAILY JOSE Administration Pneumococcal 7-Valent Conj Vacc 0.5 ml 12/17/17 12:27 12/17/17 15:55 Prevnar 13 IM 12/17/17 12:28 0.5 ml .ONCE ONE Administration Scopolamine 1 removal 12/23/17 09:30 12/23/17 09:03 Transderm-Scop Patch Removal TD 12/23/17 09:31 1 removal O ONE Administration Scopolamine 1 mg 12/20/17 09:30 12/20/17 09:50 Transderm-Scop Patch TD 12/20/17 09:31 1 mg Q3D JOSE Administration Zolpidem Tartrate 5 mg 12/19/17 21:10 12/19/17 21:25 Ambien PO 12/19/17 21:11 5 mg O ONE Administration - Constitutional no acute distress, thin - Routine HEENT Exam Head: Present: normocephalic, atraumatic. Absent: facial swelling Eye: Present: EOMI, PERRL ENT: Present: mucous membranes moist - Routine Neck Exam Present: supple. Absent: carotid bruit - Routine Chest/Breast/Axilla Exam Chest wall: Absent: tenderness - Routine Respiratory Exam Present: decreased breath sounds. Absent: accessory muscle use, prolonged expiratory phase, respiratory distress, rhonchi - Routine Cardiovascular Exam Present: irregular rhythm. Absent: tachycardia - Routine Abdominal Exam Present: soft, normoactive bowel sounds - Routine Extremities Exam Absent: clubbing, edema - Routine Skin Exam Absent: cyanosis - Routine Neurological Exam Present: alert, oriented X3 - Routine Psychiatric Exam Present: normal affect, cooperative - Urinary Catheter Management 2-way Urethral Cath placed during this visit: yes, but has since been removed by the nurse Insertion date: 12/22/17 Insertion time: 12:38 Removal date: 12/24/17 Removal time: 13:50 Results 12/27/17 03:38 12/27/17 03:38 CBC 12/27/17 Range/Units 03:38 WBC 8.4 (4.5-11.0) T/MM3 RBC 2.84 L (4.00-5.20) M/MM3 Hgb 9.1 L (12-16) GM/DL Hct 26.7 L (36-46) % Plt Count 296 (130-400) T/MM3 Neut # (Auto) Not performed Lymph # (Auto) Not performed Moffat # (Auto) Not performed Eos # (Auto) Not performed Baso # (Auto) Not performed Comprehensive Metabolic Panel 12/27/17 Range/Units 03:38 Sodium 138 (136-146) MEQ/L Potassium 4.5 (3.6-5) MEQ/L Chloride 107 (98-107) MEQ/L Carbon Dioxide 25 (22-30) MEQ/L BUN 15.0 (7-17) MG/DL Creatinine 0.5 L (0.7-1.2) mg/dL Glucose 89 (65-110) MG/DL Calcium 7.8 L (8.4-10.2) MG/DL Albumin 2.5 L (3.5-5.0) g/dL Intake and Output 12/26/17 12/27/17 12/27/17 22:59 06:59 14:59 Intake Total 543.3325 / 543.3325 500 / 500 300 / 300 Output Total 200 / 200 200 / 200 Balance 343.3325 / 343.3325 300 / 300 300 / 300 Intake: IV 183.3325 / 183.3325 POTASSIUM PHOSPHATE (mEq) 20 183.3325 / 183.3325 meq Multi-Vit Infusion 10 ml Multi-Trace Elements 1 ml In TPN - Standard Formula 2,000 ml @ 80 mls/hr IV .Q24H [facility] Rx#: [id number] Oral 360 / 360 500 / 500 300 / 300 Output: Urine 200 / 200 200 / 200 Other: Urine Appearance Clear Clear Clear Urine Color Yellow Yellow Yellow Urine Odor Normal Normal Stool Color Brown Black Brown Stool Consistency Soft Soft Liquid Size of Bowel Movement Small Small Moderate # Voids 1 1 # Bowel Movements 1 Weight 51.6 kg Patient Weight 12/28/17 06:59 Weight 51.6 kg - EKG Interpretation EKG shows: atrial fibrillation ( controlled ventricular rate) Assessment and Plan - Assessment and Plan (1) A-fib Current visit: Yes Status: Chronic Consider DC Flecainide and continue rate control and anticoagulation therapy (2) Hypertension Current visit: Yes Status: Chronic (3) Chronic anticoagulation Problem details: Eliquis Current visit: Yes Status: Chronic Tolerating well (4) S/P small bowel resection Current visit: Yes Status: Acute Recovering Assessment and Plan A-fib Current visit: Yes Status: Chronic - Paroxysmal, in SR on admit through 2017 on 12/22/17 - Flecainide not given 12/22/17, resumed 12/23/17, continue - Eliquis on hold last given 12/18/17 am dose - Okay with surgery to resume in am - continue to monitor telemetry - EKG prn rhythm change S/P small bowel resection Current visit: Yes Status: Acute per surgery Chronic anticoagulation Problem details: Eliquis Current visit: Yes Status: Chronic - resume in am Hypertension Current visit: Yes Status: Chronic stable on current therapy, continue current therapy Thank you for allowing us to participate in the care of this patient, we will follow along with you. 12/24/17 Eliquis resumed today - remains in A Fib, continue Flecainide - May consider DCCV if not converted, rate controlled on Flecainide/ Metoprolol. 12/27/17 - Remains in A Fib - consider DC Flecainide VS DCCV - Patient has been seen in our clinic 05/26/17 for bradycardia and at that time Metoprolol Succinate was decreased to 25mg daily - Patient is recovering from her SB surgery and feels well. - Remains on Eliquis - Assessment and Plan Assessment and Plan A-fib Current visit: Yes Status: Chronic - Paroxysmal, in SR on admit through 2017 on 12/22/17 - Flecainide not given 12/22/17, resumed 12/23/17, continue - Eliquis on hold last given 12/18/17 am dose - Okay with surgery to resume in am - continue to monitor telemetry - EKG prn rhythm change S/P small bowel resection Current visit: Yes Status: Acute per surgery Chronic anticoagulation Problem details: Eliquis Current visit: Yes Status: Chronic - resume in am Hypertension Current visit: Yes Status: Chronic stable on current therapy, continue current therapy Thank you for allowing us to participate in the care of this patient, we will follow along with you. 12/24/17 Eliquis resumed today - remains in A Fib, continue Flecainide - May consider DCCV if not converted, rate controlled on Flecainide/ Metoprolol. 12/27/17 - Remains in A Fib - consider DC Flecainide VS DCCV - Patient has been seen in our clinic 05/26/17 for bradycardia and at that time Metoprolol Succinate was decreased to 25mg daily - Patient is recovering from her SB surgery and feels well. - Remains on Eliquis Hospital Course Summary Disclaimer: The visit summary below is not to be considered part of the above Progress Note. Hospital Course: Plan - 12/17/17: Admit, observation status Will consult Dr. Caldera for surgical evaluation and expertise. Will initiate Levaquin 500mg IV daily as well as Flagyl 500mg TID for treatment of suspected colitis as well as UTI. Will obtain blood cultures prior to treatment for complete evaluation. Lactate on admission was 1.0. Will keep NPO except for oral medications. Medication list verified with Dr. Dyer - current computer reconciliation is incorrect. Current home medications are as follows: * HCTZ 25mg QAM * Metoprolol succinate ER 50mg BID * Losartan 100mg daily * Citalopram 10mg daily * Fish oil 1000mg BID * Flax oil - 2 tbs over cereal daily * Calcium + D 600-200 mg-unit - 1 tab BID * Vitamin C - 1 tab BID * Eliquis 2.5mg BID * Flecainide 50mg - 2 tabs (100mg) BID Will continue home dosing of metoprolol, losartan, Eliquis and Flecainide and hold other home medications. Recheck labs in AM to monitor blood counts, electrolytes and renal function. Upon discharge, patient's care will be returned to her PCP, Dr. Dyer. Patient requests to be a FULL CODE. 12/18/17: Continue current antibiotics and NPO state pending further evaluation by Dr. Caldera Decrease LR to 50 cc/hour maintenance rate for now pending further plans Will keep NPO except for oral medications for now Will continue home dosing of metoprolol, losartan, Eliquis and Flecainide and hold other home medications for now Recheck labs in AM to monitor blood counts, electrolytes and renal function 12/19/17: Continue current antibiotics and CLD pending further evaluation by Dr. Caldera Continue to hold eliquis until trajectory more clear Stop IVF and allow clear liquid intake alone today Continue losartan and toprol; prn hydralazine ordered for systolic >150 Recheck labs in AM to monitor blood counts, electrolytes and renal function Repeat clean catch UA to ensure on occult resistant UTI driving leukocytosis Continue inpatient care at this time; still having symptoms and unable to take regular diet thus far Ambulate in the halls today with assistance 12/20/17: Increased nausea while preparing for SBFT. Added reglan and scopolamine patch. Replace IV potassium. Eliquis remains on hold. SBFT c/w small bowel obstruction; Gastrografin remained in stomach and proximal jejunum at 3.5 hours. Refractory nausea present today, feculent emesis 2-NG replaced to low intermittent suction; d/w Dr. Caldera. PICC line to be placed for TPN. Have discussed with nursing on several occasions. Blood pressure persistently elevated-IV hydralazine ordered x 1 to assess response. 12/21/17: N/V much improved. Over 2L has been suctioned via NGT since midnight. PICC line inserted to initiate TPN. Will stop NS to help prevent fluid overload. K improved to 3.5 after bolus yesterday. Na improved as well. WBC up slightly to 12.7; continue Levaquin and Flagyl BP improving; continue IV hydralazine, last dose given early this morning (0443) CT abdomen/pelvis done today: Impression: 1. High-grade partial small bowel obstruction in the proximal to mid ileum of the right lower quadrant. This involves an approximately 15 cm long segment of thick-walled small bowel that could be due to ischemic, infectious or inflammatory enteritis. The amount of mesenteric edema present has significantly improved since the prior study and there is oral contrast seen throughout small and large bowel to the level of the rectum. 2. Small pleural effusions and small volume ascites. 12/22/17 Remains NPO with NG tube intact Planned for exploratory laparotomy with small bowel resection under the care of Dr. Caldera Continue on TPN via PICC line Will add Accuchecks given fasting BGM this morning was 199. Hypokalemia this morning down to 2.5. Patient given IV potassium supplementation. Continue Levaquin and Flagyl, WBC count 10.2 12/23/17 Remains on TPN via PICC line. Remains NPO with NG tube intact Hypokalemia- 3.2. Will given IV Potassium bags x2 bags. Will recheck later today Remains in A-fib RVR 110-120. BB was help last night, however was given this am. PRN Lopressor for tachycardia Work on weaning down oxygen as able. Currently on 2 liters. Levaquin and Flagyl discontinued. Eliquis remains on hold. 12/24/17 Remains nothing by mouth, NG tube clamped this morning Will work on weaning down oxygen. Eliquis resumed this morning, continue flecainide/metoprolol. Hua catheter discontinued. 12/25/17 D/W Dr. Armendariz - NGT discontinued and diet advanced to clear liquids. Continue TPN until oral intake stabilizes. Off oxygen, saturating well on room air. 12/26/17 Tolerating clear liquids well; small bowel movement this morning. Diet advanced to full liquids. TPN to be titrated off. CBC stable, hgb 9.5. <Naman Gaytan - Last Filed: 12/27/17 19:06> Exam Vital signs: Temperature 96.8 F 12/27/17 16:00 Pulse Rate 66 12/27/17 16:00 Respiratory Rate 16 12/27/17 16:00 Blood Pressure 143/69 H 12/27/17 16:00 Pulse Oximetry 97 12/27/17 16:16 Inpatient Medications: Generic Name Dose Route Start Last Admin Trade Name Freq PRN Reason Stop Dose Admin Acetaminophen 325 mg 12/23/17 17:30 12/27/17 16:07 Tylenol PO Not Given Q6HR JOSE Apixaban 2.5 mg 12/17/17 21:00 12/27/17 08:13 Eliquis PO 2.5 mg BID JOSE Administration Hydralazine HCl 10 mg 12/20/17 16:06 12/21/17 04:43 Apresoline IVP 10 mg Q4H PRN Administration Hypertension Hydrochlorothiazide 25 mg 12/19/17 13:00 12/20/17 09:24 Hydrodiuril PO 25 mg DAILY JOSE Administration Hydromorphone HCl 0.5 mg 12/23/17 13:26 12/23/17 13:40 Dilaudid IVP 0.5 mg Q4H PRN Administration Pain Insulin Aspart 1 - 5 unit 12/22/17 13:23 12/26/17 07:51 Novolog SQ 1 unit SS PRN Administration Hyperglycemia Protocol Losartan Potassium 100 mg 12/18/17 09:00 12/27/17 08:14 Cozaar PO 100 mg DAILY JOSE Administration Metoclopramide HCl 10 mg 12/20/17 07:53 12/20/17 14:03 Reglan IVP 10 mg Q6H PRN Administration Morphine Sulfate 1 - 4 mg 12/22/17 14:42 12/23/17 00:39 Morphine Sulf 2 Mg Inj IVP 2 mg Q2H PRN Administration Pain Ondansetron HCl 4 mg 12/17/17 09:43 12/20/17 17:25 Zofran IVP 4 mg Q6H PRN Administration Nausea &/or vomiting Pantoprazole Sodium 40 mg 12/26/17 06:30 12/27/17 06:10 Protonix Tab PO 40 mg ACB JOSE Administration Sodium Chloride 10 - 80 ml 12/17/17 03:52 12/25/17 17:48 Iv Flush IVF 20 ml PRN PRN Administration Flushing Sodium Chloride 500 ml 12/23/17 11:25 12/23/17 11:26 Normal Saline IV 500 ml PRN PRN Administration Throat Lozenges 5 spray 12/20/17 16:40 12/20/17 17:11 Chloraseptic Latta PO 4 spray Q2H PRN Administration Zolpidem Tartrate 5 mg 12/20/17 21:13 12/26/17 20:49 Ambien PO 5 mg HS PRN Administration Insomnia Discontinued Medications Generic Name Dose Route Start Last Admin Trade Name Freq PRN Reason Stop Dose Admin Acetaminophen 650 mg 12/22/17 14:45 12/24/17 23:01 Tylenol PO Not Given Q5H [facility] Acetaminophen 650 mg 12/23/17 17:30 Tylenol PO Q5HR [facility] Amino Acids/Electrolytes/Dextrose 1 each 12/21/17 09:24 12/21/17 19:50 Pharmacy Consult - Tpn 12/21/17 09:25 Not Given O ONE Enoxaparin Sodium 75 mg 12/17/17 07:20 12/17/17 07:30 Lovenox SQ 12/17/17 07:21 75 mg O ONE Administration Enoxaparin Sodium 40 mg 12/18/17 09:00 Lovenox SQ DAILY JOSE Enoxaparin Sodium 40 mg 12/23/17 16:06 12/23/17 17:30 Lovenox SQ 12/23/17 16:07 40 mg O ONE Administration Fentanyl 50 mcg 12/17/17 05:41 12/17/17 06:05 Fentanyl IVP 50 mcg O PRN Administration Flecainide Acetate 100 mg 12/17/17 21:00 12/27/17 08:13 Tambocor PO 100 mg BID JOSE Administration Hydralazine HCl 20 mg 12/19/17 10:37 12/20/17 03:37 Apresoline PO 20 mg Q6H PRN Administration Systolic blood pressure Hydralazine HCl 10 mg 12/20/17 15:28 12/20/17 15:33 Apresoline IVP 12/20/17 15:29 10 mg O ONE Administration Hydromorphone HCl 0.5 mg 12/17/17 03:52 12/17/17 04:14 Dilaudid IVP 12/17/17 03:53 0.5 mg O ONE Administration Sodium Chloride 500 mls @ 500 mls/hr 12/17/17 03:52 12/17/17 04:42 Normal Saline IV 12/17/17 04:51 Infused .Q1H ONE Infusion Metronidazole/Sodium Chloride 500 mg in 100 mls @ 100 mls/hr 12/17/17 09:45 12/22/17 12:22 Flagyl Iv Premix IV Infused Q8H JOSE Infusion Sodium Chloride 1,000 mls @ 75 mls/hr 12/17/17 09:45 12/17/17 11:15 Normal Saline IV Not Given .[id number] JOSE Levofloxacin/Dextrose 500 mg in 100 mls @ 100 mls/hr 12/17/17 09:45 12/22/17 13:40 Levaquin 500 Mg Premix IV Infused Q24H JOSE Infusion Lactated Ringer's 1,000 mls @ 100 mls/hr 12/17/17 10:15 12/18/17 08:30 Lactated Ringers IV Not Given .Q10H JOSE Sodium Chloride 1,000 mls @ 50 mls/hr 12/18/17 07:45 12/20/17 06:45 Normal Saline IV Infused .Q20H JOSE Infusion Sodium Chloride 1,000 mls @ 75 mls/hr 12/19/17 16:45 12/22/17 01:40 Normal Saline IV Infused .[id number] JOSE Infusion Lidocaine HCl 10 mg/ Potassium 100 mls @ 100 mls/hr 12/20/17 09:30 12/20/17 15:50 Chloride 10 meq/ Sodium IV 12/20/17 13:43 Infused Chloride .Q1H JOSE Infusion Lidocaine HCl 10 mg/ Potassium 100 mls @ 100 mls/hr 12/21/17 06:15 12/21/17 12:19 Chloride 10 meq/ Sodium IV 12/21/17 09:14 Infused Chloride .Q1H JOSE Infusion Multivitamins/Minerals 10 ml/ 2,011 mls @ 80 mls/hr 12/21/17 20:00 12/22/17 18:11 Chromium/Copper/Manganese/Zinc IV 12/22/17 18:00 Infused 1 ml/ Amino Acids/ .Q24H JOSE Infusion Electrolytes/Dextrose Protocol Fat Emulsion Intravenous 100 mls @ 25 mls/hr 12/21/17 20:00 12/26/17 00:25 Intralipid 20% IV Infused 2000 JOSE Infusion Lidocaine HCl 10 mg/ Potassium 100 mls @ 100 mls/hr 12/22/17 05:15 12/22/17 10:22 Chloride 10 meq/ Sodium IV 12/22/17 09:28 Infused Chloride .Q1H JOSE Infusion Lactated Ringer's 1,000 mls @ 50 mls/hr 12/22/17 10:00 12/22/17 16:12 Lactated Ringers IV Infused .Q20H JOSE Infusion Potassium Phosphate 20 meq/ 2,015.5455 mls @ 80 mls/hr 12/22/17 18:00 18:54 Multivitamins/Minerals 10 ml/ IV 12/26/17 14:00 Infused Chromium/Copper/Manganese/Zinc .Q24H JOSE Infusion 1 ml/ Amino Acids/ Electrolytes/Dextrose Protocol Lidocaine HCl 10 mg/ Potassium 100 mls @ 100 mls/hr 12/22/17 18:00 12/22/17 20:50 Chloride 10 meq/ Sodium IV 12/22/17 19:59 Infused Chloride .Q1H JOSE Infusion Lidocaine HCl 10 mg/ Potassium 100 mls @ 100 mls/hr 12/23/17 10:15 12/23/17 14:30 Chloride 10 meq/ Sodium IV 12/23/17 12:14 Infused Chloride .Q1H JOSE Infusion Potassium Phosphate 20 meq/ 2,015.5455 mls @ 40 mls/hr 12/26/17 14:00 14:19 Multivitamins/Minerals 10 ml/ IV 12/26/17 22:00 Not Given Chromium/Copper/Manganese/Zinc .Q24H JOSE 1 ml/ Amino Acids/ Electrolytes/Dextrose Protocol Metoprolol Succinate 50 mg 12/17/17 21:00 12/27/17 08:14 Toprol Xl PO 50 mg BID JOSE Administration Metoprolol Tartrate 5 mg 12/19/17 13:23 12/20/17 11:23 Lopressor IVP 5 mg Q6H PRN Administration Systolic blood pressure Metoprolol Tartrate 5 mg 12/22/17 17:58 Lopressor IVP Q4H PRN Systolic blood pressure Morphine Sulfate 1 - 2 mg 12/17/17 09:43 12/18/17 01:55 Morphine Sulf 2 Mg Inj IVP 1 mg Q2H PRN Administration Pain Ondansetron HCl 4 mg 12/17/17 03:52 12/17/17 04:14 Zofran IVP 12/17/17 03:53 4 mg O ONE Administration Ondansetron HCl 4 mg 12/20/17 09:00 12/20/17 08:57 Zofran IVP 12/20/17 09:01 4 mg O ONE Administration Pantoprazole Sodium 40 mg 12/17/17 13:30 12/25/17 09:58 Protonix Iv IVP 40 mg DAILY JOSE Administration Pneumococcal 7-Valent Conj Vacc 0.5 ml 12/17/17 12:27 12/17/17 15:55 Prevnar 13 IM 12/17/17 12:28 0.5 ml .ONCE ONE Administration Scopolamine 1 removal 12/23/17 09:30 12/23/17 09:03 Transderm-Scop Patch Removal TD 12/23/17 09:31 1 removal O ONE Administration Scopolamine 1 mg 12/20/17 09:30 12/20/17 09:50 Transderm-Scop Patch TD 12/20/17 09:31 1 mg Q3D JOSE Administration Zolpidem Tartrate 5 mg 12/19/17 21:10 12/19/17 21:25 Ambien PO 12/19/17 21:11 5 mg O ONE Administration - Urinary Catheter Management 2-way Urethral Cath placed during this visit: no Results 12/27/17 03:38 12/27/17 03:38 CBC 12/27/17 Range/Units 03:38 WBC 8.4 (4.5-11.0) T/MM3 RBC 2.84 L (4.00-5.20) M/MM3 Hgb 9.1 L (12-16) GM/DL Hct 26.7 L (36-46) % Plt Count 296 (130-400) T/MM3 Neut # (Auto) Not performed Lymph # (Auto) Not performed Moffat # (Auto) Not performed Eos # (Auto) Not performed Baso # (Auto) Not performed Comprehensive Metabolic Panel 12/27/17 Range/Units 03:38 Sodium 138 (136-146) MEQ/L Potassium 4.5 (3.6-5) MEQ/L Chloride 107 (98-107) MEQ/L Carbon Dioxide 25 (22-30) MEQ/L BUN 15.0 (7-17) MG/DL Creatinine 0.5 L (0.7-1.2) mg/dL Glucose 89 (65-110) MG/DL Calcium 7.8 L (8.4-10.2) MG/DL Albumin 2.5 L (3.5-5.0) g/dL Intake and Output 12/27/17 12/27/17 12/27/17 06:59 14:59 22:59 Intake Total 500 / 500 910 / 910 Output Total 200 / 200 150 / 150 Balance 300 / 300 910 / 910 -150 / -150 Intake: Oral 500 / 500 910 / 910 Output: Urine 200 / 200 150 / 150 Other: Urine Appearance Clear Clear Clear Urine Color Yellow Yellow Yellow Urine Odor Normal Normal Stool Color Black Brown Brown Black Stool Consistency Soft Liquid Soft Sharmaine Size of Bowel Movement Small Moderate Small # Voids 1 1 # Bowel Movements 1 Weight 51.6 kg Patient Weight 12/28/17 06:59 Weight 51.6 kg Assessment and Plan - Assessment and Plan (1) A-fib Current visit: Yes Status: Chronic (2) Hypertension Current visit: Yes Status: Chronic (3) Chronic anticoagulation Problem details: Eliquis Current visit: Yes Status: Chronic (4) S/P small bowel resection Current visit: Yes Status: Acute - Assessment and Plan I have evaluated patient today. I have reviewed EKG, Telemetry, lab findings, radiology, etc and I have determined this plan of care. Patient is having NSR with PAC and atrial fibrillation. We will restart Flecainide 100mg po BID and low dose Metoprolol Tartrate 12.5mg po BID and montor tele and repeat EKG in AM. Patient will likely be ready for discharge tomorrow from a cardiac standpoint after I review her repeat EKG and Telemetry We will perform TSH, MG level, CXR in AM Hospital Course Summary Disclaimer: The visit summary below is not to be considered part of the above Progress Note.
--- NOTE | 2017-12-27 10:54 | Progress Note ---
- Date 12/27/17 Subjective: Lisbeth is doing very well. She denies abdominal pain. She had a couple small bowel movements last night and another one this morning. She has not had any nausea. She's tolerating full liquids well and inquires about when she can eat. She makes it a point to go on regular walks. She denies SOA or dizziness or chest pain. Objective Vital signs: Temperature 96.4 F L 12/27/17 07:33 Pulse Rate 66 12/27/17 08:00 Respiratory Rate 16 12/27/17 07:33 Blood Pressure 152/63 H 12/27/17 07:33 Pulse Oximetry 98 12/27/17 09:09 Rhythm: Normal Sinus Rhythm Height/Weight/BMI: Height 1.52 m Weight 51.6 kg Body Mass Index 22.3 - Constitutional Present: no acute distress, well nourished, well developed, thin - Routine HEENT Exam Head: Present: normocephalic Eye: Present: PERRL. Absent: conjunctival icterus, scleral injection ENT: Present: mucous membranes moist - Routine Respiratory Exam Present: CTA bilaterally - Routine Cardiovascular Exam Present: S1, S2, irregularly irregular - Routine Abdominal Exam Present: soft, normoactive bowel sounds, non distended, non tender Comments: incision - stapled; mild ecchymosis proximally but otherwise no erythema/ drainage/warmth/swelling - Routine Extremities Exam Present: no edema - Routine Musculoskeletal Exam Musculoskeletal: Present: no clubbing or cyanosis - Routine Skin Exam Present: intact, dry, warm - Routine Neurological Exam Present: alert, oriented X3, CN II-XII intact, moving all extremities, vision grossly intact, hearing grossly intact, normal speech. Absent: sensory deficit , motor deficit, altered mental status, facial asymmetry - Routine Psychiatric Exam Present: normal affect, normal thought process, cooperative Results - Labs CBC & Chem 7: 12/27/17 03:38 12/27/17 03:38 Microbiology Results: Microbiology 12/17/17 10:28 Peripheral/Iv Start Blood Culture - Final No Growth After 5 Days 12/17/17 10:20 Peripheral/Iv Start Blood Culture - Final No Growth After 5 Days 12/19/17 13:24 Urine, Voided (Cc/notcc) Urine Culture - Final No Growth After 2 Days 12/17/17 06:04 Urine, Voided (Cc/notcc) Urine Culture - Final Mixed Bacterial Cheri Present -No further testing will be performed Assessment and Plan Assessment and Plan: Assessment S/P- Small bowel resection for small bowel obstruction - 12/22/17 Acute colitis - resolved Pyuria and bacteruria; assx Hx atrial fibrillation, Eliquis/Toprol/flecainide Sinus on admission Atrial fibrillation/flutter-12/22/17 Hypertension Hypokalemia - resolved Hyponatremia - resolved Plan Discussed with Dr. Caldera - ok to advance diet to regular. Labs/Vitals are stable. Hgb 9.1. Per cardiology - consider DC Flecainide VS DCCV for A-fib DVT Prophylaxis: SCD's, Eliquis GI Prophylaxis: Protonix Resuscitation Status: Full Code - Time spent with patient Time with patient PN: 25 minutes - Physician Narrative Physician: Torsten Senior MD Narrative: Date: 12/27/17 Time: 3 Have independently interviewed and examined pt. Chart reviewed. Case discussed with CM and my CORRESPONDENCE SCHOOL INSTRUCTOR. Care plan developed with my supervision; agree with above. Having a very good day. Tolerating regular foods without difficulty-no ab pain or nausea with oral intake. Passing stools. Incisional pain very minimal ( reports not even needing Tylenol for pain control). Breathing well. No chest pain. Strength improving. Urinating well. No f/c. Lungs: clear bilaterally CV: irregularly irregular AB: soft nt/nd +BS MSE: awake alert appropriate Plan: Diet advanced and well tolerated, strength improving. Possible discharge in near future. Hospital Course Summary Disclaimer: The visit summary below is not to be considered part of the above Progress Note. Hospital Course: Plan - 12/17/17: Admit, observation status Will consult Dr. Caldera for surgical evaluation and expertise. Will initiate Levaquin 500mg IV daily as well as Flagyl 500mg TID for treatment of suspected colitis as well as UTI. Will obtain blood cultures prior to treatment for complete evaluation. Lactate on admission was 1.0. Will keep NPO except for oral medications. Medication list verified with Dr. Dyer - current computer reconciliation is incorrect. Current home medications are as follows: * HCTZ 25mg QAM * Metoprolol succinate ER 50mg BID * Losartan 100mg daily * Citalopram 10mg daily * Fish oil 1000mg BID * Flax oil - 2 tbs over cereal daily * Calcium + D 600-200 mg-unit - 1 tab BID * Vitamin C - 1 tab BID * Eliquis 2.5mg BID * Flecainide 50mg - 2 tabs (100mg) BID Will continue home dosing of metoprolol, losartan, Eliquis and Flecainide and hold other home medications. Recheck labs in AM to monitor blood counts, electrolytes and renal function. Upon discharge, patient's care will be returned to her PCP, Dr. Dyer. Patient requests to be a FULL CODE. 12/18/17: Continue current antibiotics and NPO state pending further evaluation by Dr. Caldera Decrease LR to 50 cc/hour maintenance rate for now pending further plans Will keep NPO except for oral medications for now Will continue home dosing of metoprolol, losartan, Eliquis and Flecainide and hold other home medications for now Recheck labs in AM to monitor blood counts, electrolytes and renal function 12/19/17: Continue current antibiotics and CLD pending further evaluation by Dr. Caldera Continue to hold eliquis until trajectory more clear Stop IVF and allow clear liquid intake alone today Continue losartan and toprol; prn hydralazine ordered for systolic >150 Recheck labs in AM to monitor blood counts, electrolytes and renal function Repeat clean catch UA to ensure on occult resistant UTI driving leukocytosis Continue inpatient care at this time; still having symptoms and unable to take regular diet thus far Ambulate in the halls today with assistance 12/20/17: Increased nausea while preparing for SBFT. Added reglan and scopolamine patch. Replace IV potassium. Eliquis remains on hold. SBFT c/w small bowel obstruction; Gastrografin remained in stomach and proximal jejunum at 3.5 hours. Refractory nausea present today, feculent emesis 2-NG replaced to low intermittent suction; d/w Dr. Caldera. PICC line to be placed for TPN. Have discussed with nursing on several occasions. Blood pressure persistently elevated-IV hydralazine ordered x 1 to assess response. 12/21/17: N/V much improved. Over 2L has been suctioned via NGT since midnight. PICC line inserted to initiate TPN. Will stop NS to help prevent fluid overload. K improved to 3.5 after bolus yesterday. Na improved as well. WBC up slightly to 12.7; continue Levaquin and Flagyl BP improving; continue IV hydralazine, last dose given early this morning (442) CT abdomen/pelvis done today: Impression: 1. High-grade partial small bowel obstruction in the proximal to mid ileum of the right lower quadrant. This involves an approximately 15 cm long segment of thick-walled small bowel that could be due to ischemic, infectious or inflammatory enteritis. The amount of mesenteric edema present has significantly improved since the prior study and there is oral contrast seen throughout small and large bowel to the level of the rectum. 2. Small pleural effusions and small volume ascites. 12/22/17 Remains NPO with NG tube intact Planned for exploratory laparotomy with small bowel resection under the care of Dr. Caldera Continue on TPN via PICC line Will add Accuchecks given fasting BGM this morning was 199. Hypokalemia this morning down to 2.5. Patient given IV potassium supplementation. Continue Levaquin and Flagyl, WBC count 10.2 12/23/17 Remains on TPN via PICC line. Remains NPO with NG tube intact Hypokalemia- 3.2. Will given IV Potassium bags x2 bags. Will recheck later today Remains in A-fib RVR 110-120. BB was help last night, however was given this am. PRN Lopressor for tachycardia Work on weaning down oxygen as able. Currently on 2 liters. Levaquin and Flagyl discontinued. Eliquis remains on hold. 12/24/17 Remains nothing by mouth, NG tube clamped this morning Will work on weaning down oxygen. Eliquis resumed this morning, continue flecainide/metoprolol. Hua catheter discontinued. 12/25/17 D/W Dr. Armendariz - MARCELA discontinued and diet advanced to clear liquids. Continue TPN until oral intake stabilizes. Off oxygen, saturating well on room air. 12/26/17 Tolerating clear liquids well; small bowel movement this morning. Diet later advanced to full liquids. Diet advanced to full liquids. TPN to be titrated off. CBC stable, hgb 9.5. 12/27/[address] Caldera - ok to advance diet to regular. Labs/Vitals are stable. Hgb 9.1. Per cardiology - consider DC Flecainide VS DCCV for A-fib
[2017-12-28] MEDS: PANTOPRAZOLE 40 MG TABLET PO SCH (07:00)
[2017-12-28] MEDS: ACETAMINOPHEN 325 MG TABLET PO SCH ×3 (07:00→15:18)
[2017-12-28 07:31] VITALS: TEMP 97.8
--- NOTE | 2017-12-28 08:20 | Progress Note ---
DATE OF VISIT: 12/27/2017 REASON FOR VISIT: Postoperative followup. SUBJECTIVE Lisbeth is doing well. She had her diet advanced to a regular diet earlier today and ate a large lunch tray with no problems. She has been having bowel movements and flatus. OBJECTIVE VITAL SIGNS: Afebrile with stable vitals on room air. GENERAL: The patient is awake and alert in no acute stress. ABDOMEN: Soft, nontender. Her midline incision is healing well. IMPRESSION Postop day #5 status post exploratory laparotomy with release of strangulated hernia and segmental small bowel resection with anastomosis - doing well. PLAN 1. Continue regular diet. 2. Potentially ready for dismissal tomorrow if stable from a medical standpoint per the hospitalist team. MADAI
[2017-12-28] MEDS: APIXABAN 2.5 MG TABLET PO SCH (08:47)
[2017-12-28] MEDS: FLECAINIDE 100 MG TABLET PO SCH (08:47)
--- NOTE | 2017-12-28 08:47 | XRay Report ---
INDICATION: pleural effusion PROCEDURE: CHEST 2-VIEWS UPRIGHT (PA & LAT) Encounter: Initial COMPARISON: None FINDINGS: Right PICC line in place. Small bilateral pleural effusions with lower lobe compressive atelectasis. No pneumothorax. Cardiac silhouette is mildly enlarged. Mediastinal contours and pulmonary vascularity are within normal limits. Surgical marvin in the midline abdomen. Scoliosis and degenerative change in the spine. Impression: Small pleural effusions. .
[2017-12-28] MEDS: LOSARTAN 100 MG TABLET PO SCH (08:48)
--- NOTE | 2017-12-28 11:20 | Progress Note ---
- Date 12/28/17 Subjective: Lisbeth is doing very well and is ready to go home. She ate a generous breakfast. She went on a walk this morning that was twice as long as she's been on previously. She denies any abdominal pain or nausea and she had another bowel movement this morning. She has not felt short of breath or dizzy. Objective Vital signs: Temperature 97.8 F 12/28/17 07:31 Pulse Rate 68 12/28/17 08:00 Respiratory Rate 18 12/28/17 07:31 Blood Pressure 157/67 H 12/28/17 07:31 Pulse Oximetry 97 12/28/17 10:09 Rhythm: Normal Sinus Rhythm Height/Weight/BMI: Height 1.52 m Weight 50.9 kg Body Mass Index 22.3 - Constitutional Present: no acute distress, well nourished, well developed - Routine HEENT Exam Head: Present: normocephalic Eye: Present: PERRL. Absent: conjunctival icterus, scleral injection ENT: Present: mucous membranes moist - Routine Respiratory Exam Present: CTA bilaterally - Routine Cardiovascular Exam Present: S1, S2, irregular rhythm - Routine Abdominal Exam Present: soft, normoactive bowel sounds, non distended, non tender Comments: incision is stapled; healing well without erythema, drainage, or swelling - Routine Extremities Exam Present: no edema - Routine Back/Spine/Pelvis Exam Back/Spine: Present: full ROM - Routine Musculoskeletal Exam Musculoskeletal: Present: no clubbing or cyanosis - Routine Skin Exam Present: intact, dry, warm - Routine Neurological Exam Present: alert, oriented X3, CN II-XII intact, moving all extremities, vision grossly intact, hearing grossly intact, normal speech. Absent: sensory deficit , motor deficit, altered mental status, facial asymmetry - Routine Psychiatric Exam Present: normal affect, normal thought process, cooperative Results - Labs CBC & Chem 7: 12/28/17 03:55 12/28/17 03:55 Microbiology Results: Microbiology 12/17/17 10:28 Peripheral/Iv Start Blood Culture - Final No Growth After 5 Days 12/17/17 10:20 Peripheral/Iv Start Blood Culture - Final No Growth After 5 Days 12/19/17 13:24 Urine, Voided (Cc/notcc) Urine Culture - Final No Growth After 2 Days 12/17/17 06:04 Urine, Voided (Cc/notcc) Urine Culture - Final Mixed Bacterial Cheri Present -No further testing will be performed Assessment and Plan Assessment and Plan: Assessment S/P- Small bowel resection for small bowel obstruction - 12/22/17 Acute colitis - resolved Pyuria and bacteruria; assx Hx atrial fibrillation, Eliquis/Toprol/flecainide Sinus on admission Atrial fibrillation/flutter-12/22/17 Hypertension Hypokalemia - resolved Hyponatremia - resolved Plan Discussed with Dr. Caldera - plan on discharge later today. Labs/Vitals are stable. Hgb 9.3. TSH and mag are normal. Per Dr. Gaytan - Restart Flecainide 100mg po BID and low dose Metoprolol Tartrate 12.5mg po BID DVT Prophylaxis: SCD's, Eliquis GI Prophylaxis: Protonix Resuscitation Status: Full Code - Physician Narrative Physician: Torsten Senior MD Narrative: Date: 12/28/17 Time: 1726 Have independently interviewed and examined pt. Chart reviewed. Case discussed with my BROADCAST CORRESPONDENT. Care plan developed with my supervision; agree with above. Doing well today. Ready to go home. Eating without any problems. No ab pain or nausea. Appetite good. Bowels stable. Breathing well without SOA cough or chest congestion. Ambulating without problems. Lungs: clear CV: irregularly irregular AB: soft nt/nd MSE: awake alert appropriate Plan: Medically stable for discharge to home. Lucila did evaluate patient and recommends reducing metoprolol to 25mg BID. Will f/u with Dr Oneill 2 weeks post op and Lucila in 2 weeks. See orders for details. Hospital Course Summary Disclaimer: The visit summary below is not to be considered part of the above Progress Note. Hospital Course: Plan - 12/17/17: Admit, observation status Will consult Dr. Caldera for surgical evaluation and expertise. Will initiate Levaquin 500mg IV daily as well as Flagyl 500mg TID for treatment of suspected colitis as well as UTI. Will obtain blood cultures prior to treatment for complete evaluation. Lactate on admission was 1.0. Will keep NPO except for oral medications. Medication list verified with Dr. Dyer - current computer reconciliation is incorrect. Current home medications are as follows: * HCTZ 25mg QAM * Metoprolol succinate ER 50mg BID * Losartan 100mg daily * Citalopram 10mg daily * Fish oil 1000mg BID * Flax oil - 2 tbs over cereal daily * Calcium + D 600-200 mg-unit - 1 tab BID * Vitamin C - 1 tab BID * Eliquis 2.5mg BID * Flecainide 50mg - 2 tabs (100mg) BID Will continue home dosing of metoprolol, losartan, Eliquis and Flecainide and hold other home medications. Recheck labs in AM to monitor blood counts, electrolytes and renal function. Upon discharge, patient's care will be returned to her PCP, Dr. Dyer. Patient requests to be a FULL CODE. 12/18/17: Continue current antibiotics and NPO state pending further evaluation by Dr. Caldera Decrease LR to 50 cc/hour maintenance rate for now pending further plans Will keep NPO except for oral medications for now Will continue home dosing of metoprolol, losartan, Eliquis and Flecainide and hold other home medications for now Recheck labs in AM to monitor blood counts, electrolytes and renal function 12/19/17: Continue current antibiotics and CLD pending further evaluation by Dr. Caldera Continue to hold eliquis until trajectory more clear Stop IVF and allow clear liquid intake alone today Continue losartan and toprol; prn hydralazine ordered for systolic >150 Recheck labs in AM to monitor blood counts, electrolytes and renal function Repeat clean catch UA to ensure on occult resistant UTI driving leukocytosis Continue inpatient care at this time; still having symptoms and unable to take regular diet thus far 12/20/17: Increased nausea while preparing for SBFT. Added reglan and scopolamine patch. Replace IV potassium. Eliquis remains on hold. SBFT c/w small bowel obstruction; Gastrografin remained in stomach and proximal jejunum at 3.5 hours. Refractory nausea present today, feculent emesis 2-NG replaced to low intermittent suction; d/w Dr. Caldera. PICC line to be placed for TPN. Have discussed with nursing on several occasions. Blood pressure persistently elevated-IV hydralazine ordered x 1 to assess response. 12/21/17: N/V much improved. Over 2L has been suctioned via NGT since midnight. PICC line inserted to initiate TPN. Will stop NS to help prevent fluid overload. K improved to 3.5 after bolus yesterday. Na improved as well. WBC up slightly to 12.7; continue Levaquin and Flagyl BP improving; continue IV hydralazine, last dose given early this morning (442) CT abdomen/pelvis done today: Impression: 1. High-grade partial small bowel obstruction in the proximal to mid ileum of the right lower quadrant. This involves an approximately 15 cm long segment of thick-walled small bowel that could be due to ischemic, infectious or inflammatory enteritis. The amount of mesenteric edema present has significantly improved since the prior study and there is oral contrast seen throughout small and large bowel to the level of the rectum. 2. Small pleural effusions and small volume ascites. 12/22/17 Remains NPO with NG tube intact Planned for exploratory laparotomy with small bowel resection under the care of Dr. Caldera Continue on TPN via PICC line Accuchecks given fasting BGM this morning was 199. Hypokalemia this morning down to 2.5. Patient given IV potassium supplementation. Continue Levaquin and Flagyl, WBC count 10.2 12/23/17 Remains on TPN via PICC line. Remains NPO with NG tube intact Hypokalemia- 3.2. Gave IV Potassium. Remains in A-fib RVR 110-120. PRN Lopressor for tachycardia Work on weaning down oxygen as able. Currently on 2 liters. Levaquin and Flagyl discontinued. Eliquis remains on hold. 12/24/17 Remains nothing by mouth, NG tube clamped this morning Will work on weaning down oxygen. Eliquis resumed this morning, continue flecainide/metoprolol. Hua catheter discontinued. 12/25/17 D/W Dr. Armendariz - NGT discontinued and diet advanced to clear liquids. Continue TPN until oral intake stabilizes. Off oxygen, saturating well on room air. 12/26/17 Tolerating clear liquids well; small bowel movement this morning. Diet later advanced to full liquids. Diet advanced to full liquids. TPN to be titrated off. CBC stable, hgb 9.5. 12/27/[address] Caldera - ok to advance diet to regular. Labs/Vitals are stable. Hgb 9.1. 12/28/[address] Caldera - plan on discharge later today. Per Dr. Amirani - Restart Flecainide 100mg po BID and low dose Metoprolol Tartrate 12.5mg po BID
--- NOTE | 2017-12-28 14:48 | Discharge Summary ---
Discharge Information Date of admission: 12/18/17 12:14 Anticipated date of discharge: 12/28/17 Attending Physician: Torsten Senior MD Primary care physician: Garfield Dyer MD Consults: Consulting Provider: Abiel Caldera Reason For Exam: colitis Consulting Provider: Carter Ivey Reason For Exam: A-Flutter Problems Reviewed?: Yes Admission diagnosis Acute colitis Discharge diagnosis Small bowel obstruction secondary to strangulated internal hernia S/P- Small bowel resection for small bowel obstruction - 12/22/17 Acute colitis - resolved Pyuria and bacteruria; asymptomatic Hx atrial fibrillation, Eliquis/Toprol/flecainide Sinus on admission Atrial fibrillation/flutter - 12/22/17 Hypertension Hypokalemia (Not POA) - resolved Hyponatremia (Not POA) - resolved - Procedures Procedures: RIGHT PICC LINE 12/20/17-12/28/17 = = = = = = = = = = = = = = = = = = = = = = = = = = = = = = = = = = = = = = = = = = = = = = = = = = = = = = = = = = = NG TUBE & BHAKTA CATHETER = = = = = = = = = = = = = = = = = = = = = = = = = = = = = = = = = = = = = = = = = = = = = = = = = = = = = = = = = = = PROCEDURE 1. Exploratory laparotomy. 2. Release of strangulated hernia. 3. Segmental small bowel resection with anastomosis. DATE OF OPERATION: 12/22/2017 SURGEON: Abiel Caldera MD PREOPERATIVE DIAGNOSIS: Small bowel obstruction. POSTOPERATIVE DIAGNOSES 1. Strangulated internal hernia. 2. Small bowel obstruction related to strangulated internal hernia. - Laboratory Labs: 12/28/17 03:55 12/28/17 03:55 - Microbiology Microbiology 12/17/17 10:28 Peripheral/Iv Start Blood Culture - Final No Growth After 5 Days 12/17/17 10:20 Peripheral/Iv Start Blood Culture - Final No Growth After 5 Days 12/19/17 13:24 Urine, Voided (Cc/notcc) Urine Culture - Final No Growth After 2 Days 12/17/17 06:04 Urine, Voided (Cc/notcc) Urine Culture - Final Mixed Bacterial Cheri Present -No further testing will be performed - Radiology Radiology: = = = = = = = = = = = = = = = = = = = = = = = = = = = = = = = = = = = = = = = = = = = = = = = = = = = = = = = = = = = Date of Exam: 12/17/17 PROCEDURE: CT abdomen pelvis w con: FINDINGS: Abdomen: The lung bases are clear. There is no evidence of pleural effusion. The liver is homogeneous in appearance without evidence of enhancing lesion or mass. Gallbladder is unremarkable. There is no intra or extrahepatic biliary ductal dilatation. The spleen, pancreas, bilateral adrenals and kidneys are within normal limits. Left renal vein. The abdominal aorta is nonaneurysmal with moderate calcific atherosclerotic disease. The celiac axis, SMA, and FRANKLIN appear patent. Pelvis: There are some thickened loops of small bowel in the right lower quadrant with edema extending into the mesentery, suggesting colitis. The urinary bladder is not distended. There is no free pelvic fluid. There is no inguinal or pelvic lymphadenopathy. No gross lytic or blastic bony lesions are identified. IMPRESSION: Moderate diffuse thickening of the small bowel in the right lower quadrant with mesenteric edema. This suggests colitis either infectious, inflammatory, or ischemic. No definite vascular occlusion. = = = = = = = = = = = = = = = = = = = = = = = = = = = = = = = = = = = = = = = = = = = = = = = = = = = = = = = = = = = Date of Exam: 12/18/17 EXAM: Abdominal KUB with upright FINDINGS: Increasing gaseous distended loops of small bowel are evident within the mid abdomen with air-fluid levels and decompression of the distal small bowel loops and colon suspicious for acute small bowel obstruction. No free air is evident. No abnormal calcifications are seen. The lower lungs are clear. Included osseous structures are intact. IMPRESSION: Increasing gaseous distended loops of small bowel within the upper abdomen with air-fluid levels suspicious for developing small bowel obstruction. No free air is evident. = = = = = = = = = = = = = = = = = = = = = = = = = = = = = = = = = = = = = = = = = = = = = = = = = = = = = = = = = = = Date of Exam: 12/19/17 EXAM: XR KUB w upright IMPRESSION: Dilated gas containing small bowel loops slightly diminished in size from one day earlier. The findings remain suspicious for small bowel obstruction. There is no free intraperitoneal air demonstrated. = = = = = = = = = = = = = = = = = = = = = = = = = = = = = = = = = = = = = = = = = = = = = = = = = = = = = = = = = = = Date of Exam: 12/20/17 EXAM: XR small bowel follow through FINDINGS: The talent acquisition coordinator view demonstrated moderately distended gas containing small bowel loops suggestive of obstruction. There is delayed transit of barium through the dilated small bowel loops which extends to the duodenum and proximal duodenum and 3 hours and 30 minutes compatible with small bowel obstruction. There is no free intraperitoneal air demonstrated. There is positive air within the colonic bowel loops. Moderate residual contrast demonstrated within the stomach. Impression: Small bowel follow through demonstrates distended small bowel loops with delayed transit of barium reaching the proximal jejunum in 3 hours and 30 minutes compatible with small bowel obstruction. = = = = = = = = = = = = = = = = = = = = = = = = = = = = = = = = = = = = = = = = = = = = = = = = = = = = = = = = = = = Date of Exam: 12/21/17 PROCEDURE: XR KUB: Findings: The nasogastric tube has been advanced and now appears to be kinked within the fundus and cardia region of the stomach. There is acute angulation present with the tip projecting near the expected GE junction. Appearance of the abdomen is otherwise unchanged from the recent comparison. Impression: The nasogastric tube has been advanced and now projects over the stomach, however there is a persistent kink. Recommend correlation with tube function. = = = = = = = = = = = = = = = = = = = = = = = = = = = = = = = = = = = = = = = = = = = = = = = = = = = = = = = = = = = Date of Exam: 12/21/17 PROCEDURE: CT abdomen pelvis w con: Findings: Small bilateral pleural effusions with lower lobe compressive atelectasis. Nasogastric tube in place with the tip terminating in the fundus of the stomach. The liver is stable with mild periportal edema. No liver mass or bile duct dilatation. Vicarious excretion of contrast noted within the gallbladder. The spleen is diminutive and unchanged. The pancreas and adrenal glands are stable. Kidneys are normal. There are dilated loops of proximal small bowel filled with oral contrast measuring up to 4.4 cm in diameter in the upper pelvis. There is transition to decompressed small bowel in the right pelvis with a severely thick-walled 15 cm long segment of bowel, best seen on axial images 47 through 58. There is oral contrast seen beyond this segment of wall thickening into more normal caliber loops of mid to distal ileum. There is contrast material present within the colon to the level of the rectum. Small amount of free pelvic fluid. Colon is totally decompressed. Bone windows show degenerative change in the spine. Impression: 1. High-grade partial small bowel obstruction in the proximal to mid ileum of the right lower quadrant. This involves an approximately 15 cm long segment of thick-walled small bowel that could be due to ischemic, infectious or inflammatory enteritis. The amount of mesenteric edema present has significantly improved since the prior study and there is oral contrast seen throughout small and large bowel to the level of the rectum. 2. Small pleural effusions and small volume ascites. = = = = = = = = = = = = = = = = = = = = = = = = = = = = = = = = = = = = = = = = = = = = = = = = = = = = = = = = = = = Date of Exam: 12/28/17 PROCEDURE: CHEST 2-VIEWS UPRIGHT (PA & LAT) FINDINGS: Right PICC line in place. Small bilateral pleural effusions with lower lobe compressive atelectasis. No pneumothorax. Cardiac silhouette is mildly enlarged. Mediastinal contours and pulmonary vascularity are within normal limits. Surgical marvin in the midline abdomen. Scoliosis and degenerative change in the spine. Impression: Small pleural effusions. History of Present Illness HPI: Lisbeth Hernandez is a pleasant 87-year-old female patient of Dr. Garfield Dyer who also follows with Dr. Gaytan for her a-fib and hypertension. She complains of generalized abdominal pain that is worse in the right lower quadrant that begin suddenly last night. She took some Pepto-Bismol without relieve and reports vomiting it right back up. She complains of increased fatigue recently as well as nausea but denies any fevers, chills, chest pain, shortness of breath, diarrhea or dysuria. Around 2am her pain became intolerable so she presented to [facility] [place]. Upon arrival to the ED, she was hypertensive at 212/84. Her blood pressure improved after receiving Dilaudid 0.5mg and fentanyl 50 mcg for pain control. Labs were relatively unremarkable. She was noted to be hyperglycemic at 137 but denies a history of diabetes. Lactate was 1.0. UA did reveal + nitrate with 20-30 WBC and 2+ bacteria. CT abdomen/pelvis revealed moderate diffuse thickening of the small bowel in the right lower quadrant with mesenteric edema which suggests colitis either from infectious, inflammatory or ischemic without definite vascular occlusion. Initial v-rad report was concerning for mesenteric ischemia and case was discussed with Dr. Rivas, vascular surgeon in [place], who recommended admitting the patient to the hospitalist service at [facility]. Wylie was consulted and she was admitted to observation status for further evaluation and close monitoring. Dr. Caldera was consulted for surgical evaluation and expertise. For complete details of the H&P refer to that document. Objective Vital signs: Temperature 97.8 F 12/28/17 07:31 Pulse Rate 72 12/28/17 11:34 Respiratory Rate 18 12/28/17 11:34 Blood Pressure 130/52 12/28/17 11:34 Pulse Oximetry 97 12/28/17 11:34 Rhythm: Normal Sinus Rhythm Height/Weight/BMI: Height 1.52 m Weight 50.9 kg Body Mass Index 22.3 Hospital Course This is a general summary of the patient's hospital course. For more details refer to the complete medical record. Hospital course: 12/17/17: ADMIT, consult Dr. Caldera. Start Levaquin 500mg IV daily and Flagyl 500mg TID for colitis and UTI. NPO except for oral medications. Medication list verified with Dr. Dyer - current computer reconciliation is incorrect. Current home medications are as follows: * HCTZ 25mg QAM * Metoprolol succinate ER 50mg BID * Losartan 100mg daily * Citalopram 10mg daily * Fish oil 1000mg BID * Flax oil - 2 tbs over cereal daily * Calcium + D 600-200 mg-unit - 1 tab BID * Vitamin C - 1 tab BID * Eliquis 2.5mg BID * Flecainide 50mg - 2 tabs (100mg) BID 12/18/17: Conservative management recommended. 12/19/17: Continue losartan and Toprol; PRN hydralazine ordered for systolic > 150. Still having symptoms and unable to take regular diet. 12/20/17: Increased nausea while preparing for SBFT. Added Reglan and scopolamine patch. Replace IV potassium. Eliquis on hold. SBFT consistent with small bowel obstruction. Refractory nausea present today, feculent emesis 2-NG placed to low intermittent suction. PICC line to be placed for TPN. Blood pressure persistently elevated-IV hydralazine ordered x 1. 12/21/17: N/V much improved. Over 2L has been suctioned via NGT since midnight. K improved to 3.5 after bolus yesterday. Na improved as well. WBC up slightly to 12.7; continue Levaquin and Flagyl. BP improving; continue IV hydralazine PRN. CT abdomen/pelvis done today: Impression: 1. High-grade partial small bowel obstruction in the proximal to mid ileum of the right lower quadrant. This involves an approximately 15 cm long segment of thick-walled small bowel that could be due to ischemic, infectious or inflammatory enteritis. The amount of mesenteric edema present has significantly improved since the prior study and there is oral contrast seen throughout small and large bowel to the level of the rectum. 2. Small pleural effusions and small volume ascites. 12/22/17: OP DAY: Exploratory laparotomy with small bowel resection per Dr. Caldera. Hypokalemia this morning down to 2.5; IV potassium supplementation. Patient went into A-fib/flutter. 12/23/17: Hypokalemia 3.2. Gave IV Potassium. Remains in A-fib RVR 110-120. PRN Lopressor for tachycardia. Dr. Ivey consulted. Currently on 2 liters O2. Levaquin and Flagyl discontinued. Eliquis remains on hold. 12/24/17: NG tube clamped this morning. Eliquis resumed, continue flecainide/ metoprolol. Bhakta catheter discontinued. 12/25/17: NGT discontinued and diet advanced to clear liquids. Continue TPN until oral intake stabilizes. Off oxygen, saturating well on room air. 12/26/17: Tolerating clear liquids well; small bowel movement this morning. Diet later advanced to full liquids. TPN to be titrated off. CBC stable, hgb 9.5. 12/27/17: Diet advanced to regular. Labs/Vitals are stable. 12/28/17: DISCHARGE HOME WITH HOME HEALTH Surgical care: Leave incision open to air. OK to shower but no baths. F/U with Dr. Caldera 2 weeks postop for staple removal. Cardiac care: Continue Flecainide 100 mg BID, metoprolol 12.5 mg BID, resume HCTZ. Monitor BP/HR at home. F/U with Dr. Gaytan in 1 week. Medical care: Electrolytes stable on discharge. Hgb 9.3. WBC 7.1. F/U with Dr. Dyer in 1 week. Repeat CBC, BMP in 1 week. Time spent with patient: greater than 35 minutes Resuscitation Status: Full Code Discharge Plan - Discharge Disposition Discharge Date: 12/28/17 Disposition: [facility] *Condition: Stable Reason For Visit (Visit label in EMR): colitis, hyponatremia, new leukocytosis, need for - Discharge Medications *Discharge Medications: Continue Losartan [Cozaar] 100 mg PO DAILY Flecainide [Tambocor] 100 mg PO BID hydroCHLOROthiazide [Hydrochlorothiazide] 1 tab PO DAILY Apixaban [Eliquis] 2.5 tab PO BID Citalopram [Celexa] 1 tab PO DAILY Changed Metoprolol Succinate (XL) [Toprol Xl] 12.5 mg PO BID #30 Discontinued Metoprolol Succinate (XL) [Toprol Xl] 25 mg PO DAILY - Discharge Packet/Instructions *Diet: You may resume your usual diet as tolerated. *Activity: No heavy pushing, pulling, straining, or lifting > 15 pounds for a month after surgery. You may otherwise resume you usual activity as your incision pain allows. *Pain Management/Treatment: For management of your postoperative pain you can continue to use [id number] Tylenol (acetaminophen). - The MAXIMUM DOSE of acetaminophen should be no more than 3,250 mg in a 24 hour period. *Wound Care: You incision may be left open to air. - You may shower but no tub baths until after your marvin are removed. Additional Instructions: Follow-up with Dr. Caldera about 2 weeks after surgery for staple removal. Please call Dr. Caldera's office at to schedule your post-op appointment time (Dial 3 when the recording starts ). *Expected Signs/Symptoms: Expect some pain at your incision site. You may have some nausea if you take pain pills on an empty stomach. *Notify Physician if: Contact Dr. Caldera if any of the following occur: - Your pain is not adequately controlled. - You have persistent nausea or vomiting for more than 24 hours. - You have a fever over 101 degrees. - You develop redness, swelling, increasing pain, excessive bleeding, or excessive/ foul smelling drainage from your incision site. - You have pain and/or swelling in your feet, calves, or legs. - You have difficulty breathing, abnormal cough, or chest pain. *During Business Hours Contact: *In the event of an emergency, call 911 or seek medical care at the nearest emergency room.*. Call Dr. Caldera's office at [phone]. If you have any problems with your blood pressure or heart rate, please contact Dr. Gaytan's office. *After Business Hours Contact: After hours, please call [facility] at [phone] and have the non licensed nuclear plant operator page Dr. Caldera or the covering surgeon. *Pending Lab/Results: No Pending Lab Outpatient Orders: BMP - Basic Metabolic - [facility] Time Frame: 1 Week, Location: None Selected CBC w Auto [id number] Time Frame: 1 Week, Location: None Selected - Referrals/Follow Up *Referrals/Follow Up: Abiel Caldera MD [Physician] - 1 Week Garfield Dyer MD [Primary Care Provider] - 1 Week Naman Gaytan MD [Physician] - 1 Week - Patient Handouts Patient Handouts: A-fib (Atrial Fibrillation) (DC), Exploratory Laparotomy (DC) , Bowel Obstruction (DC), Colitis (ED) - Dismissal Complete Discharge Instructions are:: Complete Physician Narrative - Narrative Physician: Torsten Senior MD Attestation Narrative: Date: 12/28/17 Time: 1829 I have independently interviewed and examined patient prior to discharge. See my progress note for details. Care plan developed with my supervision, agree with above.
[2017-12-28 15:41] VITALS: BP 149/56; RESP 20
[2017-12-28 17:14] VITALS: PULSE 81
--- NOTE | 2017-12-28 17:26 | Cardiology Progress Note ---
<Marti Spangler L - Last Filed: 12/28/17 17:30> Subjective Principal diagnosis: abdominal pain Interval history: Lisbeth is seen in follow up for A Fib with RVR. She is maintaining SR w/pac's on tele. She reports feeling well, ready for dismissal home. Exam Vital signs: Temperature 97.8 F 12/28/17 07:31 Pulse Rate 81 12/28/17 16:00 Respiratory Rate 20 12/28/17 15:40 Blood Pressure 149/56 H 12/28/17 15:40 Pulse Oximetry 98 12/28/17 15:40 Inpatient Medications: Generic Name Dose Route Start Last Admin Trade Name Freq PRN Reason Stop Dose Admin Acetaminophen 325 mg 12/23/17 17:30 12/28/17 15:18 Tylenol PO 325 mg Q6HR JOSE Administration Apixaban 2.5 mg 12/17/17 21:00 12/28/17 08:47 Eliquis PO 2.5 mg BID JOSE Administration Flecainide Acetate 100 mg 12/27/17 21:00 12/28/17 08:47 Tambocor PO 100 mg BID OJSE Administration Hydralazine HCl 10 mg 12/20/17 16:06 12/21/17 04:43 Apresoline IVP 10 mg Q4H PRN Administration Hypertension Hydrochlorothiazide 25 mg 12/19/17 13:00 12/20/17 09:24 Hydrodiuril PO 25 mg DAILY JOSE Administration Hydromorphone HCl 0.5 mg 12/23/17 13:26 12/23/17 13:40 Dilaudid IVP 0.5 mg Q4H PRN Administration Pain Insulin Aspart 1 - 5 unit 12/22/17 13:23 12/26/17 07:51 Novolog SQ 1 unit SS PRN Administration Hyperglycemia Protocol Losartan Potassium 100 mg 12/18/17 09:00 12/28/17 08:48 Cozaar PO 100 mg DAILY JOSE Administration Metoclopramide HCl 10 mg 12/20/17 07:53 12/20/17 14:03 Reglan IVP 10 mg Q6H PRN Administration Metoprolol Tartrate 12.5 mg 12/28/17 08:00 12/28/17 08:48 Lopressor PO 12.5 mg BIDWM JOSE Administration Morphine Sulfate 1 - 4 mg 12/22/17 14:42 08/02/18 00:39 Morphine Sulf 2 Mg Inj IVP 2 mg Q2H PRN Administration Pain Ondansetron HCl 4 mg 12/17/17 09:43 12/20/17 17:25 Zofran IVP 4 mg Q6H PRN Administration Nausea &/or vomiting Pantoprazole Sodium 40 mg 12/26/17 06:30 12/28/17 07:00 Protonix Tab PO 40 mg ACB JOSE Administration Sodium Chloride 10 - 80 ml 12/17/17 03:52 12/25/17 17:48 Iv Flush IVF 20 ml PRN PRN Administration Flushing Sodium Chloride 500 ml 12/23/17 11:25 12/23/17 11:26 Normal Saline IV 500 ml PRN PRN Administration Throat Lozenges 5 spray 12/20/17 16:40 12/20/17 17:11 Chloraseptic [place] PO 4 spray Q2H PRN Administration Zolpidem Tartrate 5 mg 12/20/17 21:13 12/26/17 20:49 Ambien PO 5 mg HS PRN Administration Insomnia Discontinued Medications Generic Name Dose Route Start Last Admin Trade Name Freq PRN Reason Stop Dose Admin Acetaminophen 650 mg 12/22/17 14:45 12/24/17 23:01 Tylenol PO Not Given Q5H [facility] Acetaminophen 650 mg 12/23/17 17:30 Tylenol PO Q5HR [facility] Amino Acids/Electrolytes/Dextrose 1 each 12/21/17 09:24 12/21/17 19:50 Pharmacy Consult - Tpn 12/21/17 09:25 Not Given O ONE Enoxaparin Sodium 75 mg 12/17/17 07:20 12/17/17 07:30 Lovenox SQ 12/17/17 07:21 75 mg O ONE Administration Enoxaparin Sodium 40 mg 12/18/17 09:00 Lovenox SQ DAILY [facility] Enoxaparin Sodium 40 mg 12/23/17 16:06 12/23/17 17:30 Lovenox SQ 12/23/17 16:07 40 mg O ONE Administration Fentanyl 50 mcg 12/17/17 05:41 12/17/17 06:05 Fentanyl IVP 50 mcg O PRN Administration Flecainide Acetate 100 mg 12/17/17 21:00 12/27/17 08:13 Tambocor PO 100 mg BID JOSE Administration Hydralazine HCl 20 mg 12/19/17 10:37 12/20/17 03:37 Apresoline PO 20 mg Q6H PRN Administration Systolic blood pressure Hydralazine HCl 10 mg 12/20/17 15:28 12/20/17 15:33 Apresoline IVP 12/20/17 15:29 10 mg O ONE Administration Hydromorphone HCl 0.5 mg 12/17/17 03:52 12/17/17 04:14 Dilaudid IVP 12/17/17 03:53 0.5 mg O ONE Administration Sodium Chloride 500 mls @ 500 mls/hr 12/17/17 03:52 12/17/17 04:42 Normal Saline IV 12/17/17 04:51 Infused .Q1H ONE Infusion Metronidazole/Sodium Chloride 500 mg in 100 mls @ 100 mls/hr 12/17/17 09:45 12/22/17 12:22 Flagyl Iv Premix IV Infused Q8H JOSE Infusion Sodium Chloride 1,000 mls @ 75 mls/hr 12/17/17 09:45 12/17/17 11:15 Normal Saline IV Not Given .[id number] JOSE Levofloxacin/Dextrose 500 mg in 100 mls @ 100 mls/hr 12/17/17 09:45 12/22/17 13:40 Levaquin 500 Mg Premix IV Infused Q24H JOSE Infusion Lactated Ringer's 1,000 mls @ 100 mls/hr 12/17/17 10:15 12/18/17 08:30 Lactated Ringers IV Not Given .Q10H JOSE Sodium Chloride 1,000 mls @ 50 mls/hr 12/18/17 07:45 12/20/17 06:45 Normal Saline IV Infused .Q20H JOSE Infusion Sodium Chloride 1,000 mls @ 75 mls/hr 12/19/17 16:45 12/22/17 01:40 Normal Saline IV Infused .[id number] JOSE Infusion Lidocaine HCl 10 mg/ Potassium 100 mls @ 100 mls/hr 12/20/17 09:30 12/20/17 15:50 Chloride 10 meq/ Sodium IV 12/20/17 13:43 Infused Chloride .Q1H JOSE Infusion Lidocaine HCl 10 mg/ Potassium 100 mls @ 100 mls/hr 12/21/17 06:15 12/21/17 12:19 Chloride 10 meq/ Sodium IV 12/21/17 09:14 Infused Chloride .Q1H JOSE Infusion Multivitamins/Minerals 10 ml/ 2,011 mls @ 80 mls/hr 12/21/17 20:00 12/22/17 18:11 Chromium/Copper/Manganese/Zinc IV 12/22/17 18:00 Infused 1 ml/ Amino Acids/ .Q24H JOSE Infusion Electrolytes/Dextrose Protocol Fat Emulsion Intravenous 100 mls @ 25 mls/hr 12/21/17 20:00 12/26/17 00:25 Intralipid 20% IV Infused 2000 JOSE Infusion Lidocaine HCl 10 mg/ Potassium 100 mls @ 100 mls/hr 12/22/17 05:15 12/22/17 10:22 Chloride 10 meq/ Sodium IV 12/22/17 09:28 Infused Chloride .Q1H JOSE Infusion Lactated Ringer's 1,000 mls @ 50 mls/hr 12/22/17 10:00 12/22/17 16:12 Lactated Ringers IV Infused .Q20H JOSE Infusion Potassium Phosphate 20 meq/ 2,015.5455 mls @ 80 mls/hr 12/22/17 18:00 18:54 Multivitamins/Minerals 10 ml/ IV 12/26/17 14:00 Infused Chromium/Copper/Manganese/Zinc .Q24H JOSE Infusion 1 ml/ Amino Acids/ Electrolytes/Dextrose Protocol Lidocaine HCl 10 mg/ Potassium 100 mls @ 100 mls/hr 12/22/17 18:00 12/22/17 20:50 Chloride 10 meq/ Sodium IV 12/22/17 19:59 Infused Chloride .Q1H JOSE Infusion Lidocaine HCl 10 mg/ Potassium 100 mls @ 100 mls/hr 12/23/17 10:15 12/23/17 14:30 Chloride 10 meq/ Sodium IV 12/23/17 12:14 Infused Chloride .Q1H JOSE Infusion Potassium Phosphate 20 meq/ 2,015.5455 mls @ 40 mls/hr 12/26/17 14:00 14:19 Multivitamins/Minerals 10 ml/ IV 12/26/17 22:00 Not Given Chromium/Copper/Manganese/Zinc .Q24H JOSE 1 ml/ Amino Acids/ Electrolytes/Dextrose Protocol Metoprolol Succinate 50 mg 12/17/17 21:00 12/27/17 08:14 Toprol Xl PO 50 mg BID JOSE Administration Metoprolol Tartrate 5 mg 12/19/17 13:23 12/20/17 11:23 Lopressor IVP 5 mg Q6H PRN Administration Systolic blood pressure Metoprolol Tartrate 5 mg 12/22/17 17:58 Lopressor IVP Q4H PRN Systolic blood pressure Morphine Sulfate 1 - 2 mg 12/17/17 09:43 12/18/17 01:55 Morphine Sulf 2 Mg Inj IVP 1 mg Q2H PRN Administration Pain Ondansetron HCl 4 mg 12/17/17 03:52 12/17/17 04:14 Zofran IVP 12/17/17 03:53 4 mg O ONE Administration Ondansetron HCl 4 mg 12/20/17 09:00 12/20/17 08:57 Zofran IVP 12/20/17 09:01 4 mg O ONE Administration Pantoprazole Sodium 40 mg 12/17/17 13:30 12/25/17 09:58 Protonix Iv IVP 40 mg DAILY JOSE Administration Pneumococcal 7-Valent Conj Vacc 0.5 ml 12/17/17 12:27 12/17/17 15:55 Prevnar 13 IM 12/17/17 12:28 0.5 ml .ONCE ONE Administration Scopolamine 1 removal 12/23/17 09:30 12/23/17 09:03 Transderm-Scop Patch Removal TD 12/23/17 09:31 1 removal O ONE Administration Scopolamine 1 mg 12/20/17 09:30 12/20/17 09:50 Transderm-Scop Patch TD 12/20/17 09:31 1 mg Q3D JOSE Administration Zolpidem Tartrate 5 mg 12/19/17 21:10 12/19/17 21:25 Ambien PO 12/19/17 21:11 5 mg O ONE Administration - Constitutional no acute distress - Routine HEENT Exam Head: Present: normocephalic Eye: Present: PERRL ENT: Present: mucous membranes moist - Routine Neck Exam Absent: JVD, carotid bruit - Routine Abdominal Exam Present: soft, tenderness - Routine Extremities Exam Present: no edema - Routine Skin Exam Present: intact - Routine Neurological Exam Present: alert, oriented X3, moving all extremities - Routine Psychiatric Exam Present: normal affect - Urinary Catheter Management 2-way Urethral Cath placed during this visit: yes, but has since been removed by the nurse Insertion date: 12/22/17 Insertion time: 12:38 Removal date: 12/24/17 Removal time: 13:50 Results 12/28/17 03:55 12/28/17 03:55 CBC 12/28/17 Range/Units 03:55 WBC 7.1 (4.5-11.0) T/MM3 RBC 2.89 L (4.00-5.20) M/MM3 Hgb 9.3 L (12-16) GM/DL Hct 27.2 L (36-46) % Plt Count 325 (130-400) T/MM3 Neut # (Auto) 4.3 (1.8-7.7) T/MM3 Lymph # (Auto) 1.5 (1-4.8) T/MM3 [place] # (Auto) 1.0 H (0-0.8) T/MM3 Eos # (Auto) 0.2 (0-0.5) T/MM3 Baso # (Auto) 0.0 (0-0.2) T/MM3 Comprehensive Metabolic Panel 12/28/17 Range/Units 03:55 Sodium 139 (136-146) MEQ/L Potassium 4.2 (3.6-5) MEQ/L Chloride 109 H (98-107) MEQ/L Carbon Dioxide 24 (22-30) MEQ/L BUN 14.0 (7-17) MG/DL Creatinine 0.5 L (0.7-1.2) mg/dL Glucose 95 (65-110) MG/DL Calcium 7.9 L (8.4-10.2) MG/DL Intake and Output 12/28/17 12/28/17 12/28/17 06:59 14:59 22:59 Intake Total 300 / 300 Output Total 200 / 200 Balance 100 / 100 Intake: Oral 300 / 300 Output: Urine 200 / 200 Other: Stool Color Brown Stool Consistency Soft Liquid Size of Bowel Movement Small Large # Voids 1 # Bowel Movements 1 Weight 50.9 kg Patient Weight 12/29/17 06:59 Weight 50.9 kg Laboratory Results - last 24 hr 12/28/17 12/28/17 12/28/17 03:55 03:55 03:55 WBC 7.1 RBC 2.89 L Hgb 9.3 L Hct 27.2 L MCV 94.1 MCH 32.2 MCHC 34.2 RDW Std Deviation 46.5 Plt Count 325 MPV 10.3 Immature Gran % (Auto) 0.7 H Neut % (Auto) 60.5 Lymph % (Auto) 21.3 L [place] % (Auto) 14.4 H Eos % (Auto) 2.8 Baso % (Auto) 0.3 Neut # (Auto) 4.3 Lymph # (Auto) 1.5 [place] # (Auto) 1.0 H Eos # (Auto) 0.2 Baso # (Auto) 0.0 Abs Immat Gran (auto) 0.05 H Turbidity < 20 Sodium 139 Potassium 4.2 Chloride 109 H Carbon Dioxide 24 Anion Gap 6 BUN 14.0 Creatinine 0.5 L Estimated Creat Clear 31 GFR Calculation 117 BUN/Creatinine Ratio 28 H Glucose 95 Calculated Osmolality 269 Calcium 7.9 L Magnesium 2.2 Icterus Index < 2 TSH 2.94 Specimen Hemolysis < 15 Assessment and Plan - Assessment and Plan (1) A-fib Status: Chronic (2) Hypertension Status: Chronic (3) Chronic anticoagulation Problem details: Eliquis Status: Chronic (4) S/P small bowel resection Status: Acute - Assessment and Plan Patient is having NSR with PAC and atrial fibrillation. Restarted Flecainide 100mg po BID and low dose Metoprolol Tartrate 12.5mg po BID yesterday ECG stable this AM. TSH, Mag wnl this am. No acute cardiopulmonary process on CXR Pt is stable from dismissal from cardiology stand point, on same meds. Pt needs to follow up in one week with lorenzo for an ecg and vitals check. Hospital Course Summary Disclaimer: The visit summary below is not to be considered part of the above Progress Note. Hospital Course: 12/17/17: ADMIT, consult Dr. Caldera. Start Levaquin 500mg IV daily and Flagyl 500mg TID for colitis and UTI. NPO except for oral medications. Medication list verified with Dr. Dyer - current computer reconciliation is incorrect. Current home medications are as follows: * HCTZ 25mg QAM * Metoprolol succinate ER 50mg BID * Losartan 100mg daily * Citalopram 10mg daily * Fish oil 1000mg BID * Flax oil - 2 tbs over cereal daily * Calcium + D 600-200 mg-unit - 1 tab BID * Vitamin C - 1 tab BID * Eliquis 2.5mg BID * Flecainide 50mg - 2 tabs (100mg) BID 12/18/17: Conservative management recommended. 12/19/17: Continue losartan and Toprol; PRN hydralazine ordered for systolic > 150. Still having symptoms and unable to take regular diet. 12/20/17: Increased nausea while preparing for SBFT. Added reglan and scopolamine patch. Replace IV potassium. Eliquis on hold. SBFT consistent with small bowel obstruction. Refractory nausea present today, feculent emesis 2-NG placed to low intermittent suction. PICC line to be placed for TPN. Blood pressure persistently elevated-IV hydralazine ordered x 1. 12/21/17: N/V much improved. Over 2L has been suctioned via NGT since midnight. K improved to 3.5 after bolus yesterday. Na improved as well. WBC up slightly to 12.7; continue Levaquin and Flagyl. BP improving; continue IV hydralazine PRN. CT abdomen/pelvis done today: Impression: 1. High-grade partial small bowel obstruction in the proximal to mid ileum of the right lower quadrant. This involves an approximately 15 cm long segment of thick-walled small bowel that could be due to ischemic, infectious or inflammatory enteritis. The amount of mesenteric edema present has significantly improved since the prior study and there is oral contrast seen throughout small and large bowel to the level of the rectum. 2. Small pleural effusions and small volume ascites. 12/22/17: OP DAY: Exploratory laparotomy with small bowel resection per Dr. Caldera. Hypokalemia this morning down to 2.5; IV potassium supplementation. Patient went into A-fib/flutter. 12/23/17: Hypokalemia 3.2. Gave IV Potassium. Remains in A-fib RVR 110-120. PRN Lopressor for tachycardia. Dr. Ivey consulted. Currently on 2 liters O2. Levaquin and Flagyl discontinued. Eliquis remains on hold. 12/24/17: NG tube clamped this morning. Eliquis resumed, continue flecainide/ metoprolol. Hua catheter discontinued. 12/25/17: NGT discontinued and diet advanced to clear liquids. Continue TPN until oral intake stabilizes. Off oxygen, saturating well on room air. 12/26/17: Tolerating clear liquids well; small bowel movement this morning. Diet later advanced to full liquids. TPN to be titrated off. CBC stable, hgb 9.5. 12/27/17: Diet advanced to regular. Labs/Vitals are stable. 12/28/17: DISCHARGE HOME WITH HOME HEALTH Surgical care: Leave incision open to air. OK to shower but no baths. F/U with Dr. Caldera 2 weeks postop for staple removal. Cardiac care: Medical care: Electrolytes stable on discharge. Hgb 9.3. WBC 7.1. F/U with Dr. Dyer in [address] Gaytan - Restart Flecainide 100mg po BID and low dose Metoprolol Tartrate 12.5mg po BID <Naman Gaytan - Last Filed: 01/06/18 13:42> Exam Vital signs: Temperature 97.8 F 12/28/17 07:31 Pulse Rate 81 12/28/17 16:00 Respiratory Rate 20 12/28/17 15:40 Blood Pressure 149/56 H 12/28/17 15:40 Pulse Oximetry 94 12/28/17 17:58 Inpatient Medications: Discontinued Medications Generic Name Dose Route Start Last Admin Trade Name Jordonq PRN Reason Stop Dose Admin Acetaminophen 650 mg 12/22/17 14:45 12/24/17 23:01 Tylenol PO Not Given Q5H JOSE Acetaminophen 650 mg 12/23/17 17:30 Tylenol PO Q5HR JOSE Acetaminophen 325 mg 12/23/17 17:30 12/28/17 15:18 Tylenol PO 325 mg Q6HR JOSE Administration Amino Acids/Electrolytes/Dextrose 1 each 12/21/17 09:24 12/21/17 19:50 Pharmacy Consult - Tpn 12/21/17 09:25 Not Given O ONE Apixaban 2.5 mg 12/17/17 21:00 12/28/17 08:47 Eliquis PO 2.5 mg BID JOSE Administration Enoxaparin Sodium 75 mg 12/17/17 07:20 12/17/17 07:30 Lovenox SQ 12/17/17 07:21 75 mg O ONE Administration Enoxaparin Sodium 40 mg 12/18/17 09:00 Lovenox SQ DAILY JOSE Enoxaparin Sodium 40 mg 12/23/17 16:06 12/23/17 17:30 Lovenox SQ 12/23/17 16:07 40 mg O ONE Administration Fentanyl 50 mcg 12/17/17 05:41 12/17/17 06:05 Fentanyl IVP 50 mcg O PRN Administration Flecainide Acetate 100 mg 12/17/17 21:00 12/27/17 08:13 Tambocor PO 100 mg BID JOSE Administration Flecainide Acetate 100 mg 12/27/17 21:00 12/28/17 08:47 Tambocor PO 100 mg BID JOSE Administration Hydralazine HCl 20 mg 12/19/17 10:37 12/20/17 03:37 Apresoline PO 20 mg Q6H PRN Administration Systolic blood pressure Hydralazine HCl 10 mg 12/20/17 15:28 12/20/17 15:33 Apresoline IVP 12/20/17 15:29 10 mg O ONE Administration Hydralazine HCl 10 mg 12/20/17 16:06 12/21/17 04:43 Apresoline IVP 10 mg Q4H PRN Administration Hypertension Hydrochlorothiazide 25 mg 12/19/17 13:00 12/20/17 09:24 Hydrodiuril PO 25 mg DAILY JOSE Administration Hydromorphone HCl 0.5 mg 12/17/17 03:52 12/17/17 04:14 Dilaudid IVP 12/17/17 03:53 0.5 mg O ONE Administration Hydromorphone HCl 0.5 mg 12/23/17 13:26 12/23/17 13:40 Dilaudid IVP 0.5 mg Q4H PRN Administration Pain Sodium Chloride 500 mls @ 500 mls/hr 12/17/17 03:52 12/17/17 04:42 Normal Saline IV 12/17/17 04:51 Infused .Q1H ONE Infusion Metronidazole/Sodium Chloride 500 mg in 100 mls @ 100 mls/hr 12/17/17 09:45 12/22/17 12:22 Flagyl Iv Premix IV Infused Q8H JOSE Infusion Sodium Chloride 1,000 mls @ 75 mls/hr 12/17/17 09:45 12/17/17 11:15 Normal Saline IV Not Given .[id number] JOSE Levofloxacin/Dextrose 500 mg in 100 mls @ 100 mls/hr 12/17/17 09:45 12/22/17 13:40 Levaquin 500 Mg Premix IV Infused Q24H JOSE Infusion Lactated Ringer's 1,000 mls @ 100 mls/hr 12/17/17 10:15 12/18/17 08:30 Lactated Ringers IV Not Given .Q10H JOSE Sodium Chloride 1,000 mls @ 50 mls/hr 12/18/17 07:45 12/20/17 06:45 Normal Saline IV Infused .Q20H JOSE Infusion Sodium Chloride 1,000 mls @ 75 mls/hr 12/19/17 16:45 12/22/17 01:40 Normal Saline IV Infused .[id number] JOSE Infusion Lidocaine HCl 10 mg/ Potassium 100 mls @ 100 mls/hr 12/20/17 09:30 12/20/17 15:50 Chloride 10 meq/ Sodium IV 12/20/17 13:43 Infused Chloride .Q1H JOSE Infusion Lidocaine HCl 10 mg/ Potassium 100 mls @ 100 mls/hr 12/21/17 06:15 12/21/17 12:19 Chloride 10 meq/ Sodium IV 12/21/17 09:14 Infused Chloride .Q1H JOSE Infusion Multivitamins/Minerals 10 ml/ 2,011 mls @ 80 mls/hr 12/21/17 20:00 12/22/17 18:11 Chromium/Copper/Manganese/Zinc IV 12/22/17 18:00 Infused 1 ml/ Amino Acids/ .Q24H JOSE Infusion Electrolytes/Dextrose Protocol Fat Emulsion Intravenous 100 mls @ 25 mls/hr 12/21/17 20:00 12/26/17 00:25 Intralipid 20% IV Infused 2000 JOSE Infusion Lidocaine HCl 10 mg/ Potassium 100 mls @ 100 mls/hr 12/22/17 05:15 12/22/17 10:22 Chloride 10 meq/ Sodium IV 12/22/17 09:28 Infused Chloride .Q1H JOSE Infusion Lactated Ringer's 1,000 mls @ 50 mls/hr 12/22/17 10:00 12/22/17 16:12 Lactated Ringers IV Infused .Q20H JOSE Infusion Potassium Phosphate 20 meq/ 2,015.5455 mls @ 80 mls/hr 12/22/17 18:00 18:54 Multivitamins/Minerals 10 ml/ IV 12/26/17 14:00 Infused Chromium/Copper/Manganese/Zinc .Q24H JOSE Infusion 1 ml/ Amino Acids/ Electrolytes/Dextrose Protocol Lidocaine HCl 10 mg/ Potassium 100 mls @ 100 mls/hr 12/22/17 18:00 12/22/17 20:50 Chloride 10 meq/ Sodium IV 12/22/17 19:59 Infused Chloride .Q1H JOSE Infusion Lidocaine HCl 10 mg/ Potassium 100 mls @ 100 mls/hr 12/23/17 10:15 12/23/17 14:30 Chloride 10 meq/ Sodium IV 12/23/17 12:14 Infused Chloride .Q1H JOSE Infusion Potassium Phosphate 20 meq/ 2,015.5455 mls @ 40 mls/hr 12/26/17 14:00 14:19 Multivitamins/Minerals 10 ml/ IV 12/26/17 22:00 Not Given Chromium/Copper/Manganese/Zinc .Q24H JOSE 1 ml/ Amino Acids/ Electrolytes/Dextrose Protocol Insulin Aspart 1 - 5 unit 12/22/17 13:23 12/26/17 07:51 Novolog SQ 1 unit SS PRN Administration Hyperglycemia Protocol Losartan Potassium 100 mg 12/18/17 09:00 12/28/17 08:48 Cozaar PO 100 mg DAILY JOSE Administration Metoclopramide HCl 10 mg 12/20/17 07:53 12/20/17 14:03 Reglan IVP 10 mg Q6H PRN Administration Metoprolol Succinate 50 mg 12/17/17 21:00 12/27/17 08:14 Toprol Xl PO 50 mg BID JOSE Administration Metoprolol Tartrate 5 mg 12/19/17 13:23 12/20/17 11:23 Lopressor IVP 5 mg Q6H PRN Administration Systolic blood pressure Metoprolol Tartrate 5 mg 12/22/17 17:58 Lopressor IVP Q4H PRN Systolic blood pressure Metoprolol Tartrate 12.5 mg 12/28/17 08:00 12/28/17 08:48 Lopressor PO 12.5 mg BIDWM JOSE Administration Morphine Sulfate 1 - 2 mg 12/17/17 09:43 12/18/17 01:55 Morphine Sulf 2 Mg Inj IVP 1 mg Q2H PRN Administration Pain Morphine Sulfate 1 - 4 mg 12/22/17 14:42 12/23/17 00:39 Morphine Sulf 2 Mg Inj IVP 2 mg Q2H PRN Administration Pain Ondansetron HCl 4 mg 12/17/17 03:52 12/17/17 04:14 Zofran IVP 12/17/17 03:53 4 mg O ONE Administration Ondansetron HCl 4 mg 12/17/17 09:43 12/20/17 17:25 Zofran IVP 4 mg Q6H PRN Administration Nausea &/or vomiting Ondansetron HCl 4 mg 12/20/17 09:00 12/20/17 08:57 Zofran IVP 12/20/17 09:01 4 mg O ONE Administration Pantoprazole Sodium 40 mg 12/17/17 13:30 12/25/17 09:58 Protonix Iv IVP 40 mg DAILY JOSE Administration Pantoprazole Sodium 40 mg 12/26/17 06:30 12/28/17 07:00 Protonix Tab PO 40 mg ACB JOSE Administration Pneumococcal 7-Valent Conj Vacc 0.5 ml 12/17/17 12:27 12/17/17 15:55 Prevnar 13 IM 12/17/17 12:28 0.5 ml .ONCE ONE Administration Scopolamine 1 removal 12/23/17 09:30 12/23/17 09:03 Transderm-Scop Patch Removal TD 12/23/17 09:31 1 removal O ONE Administration Scopolamine 1 mg 12/20/17 09:30 12/20/17 09:50 Transderm-Scop Patch TD 12/20/17 09:31 1 mg Q3D JOSE Administration Sodium Chloride 10 - 80 ml 12/17/17 03:52 12/25/17 17:48 Iv Flush IVF 20 ml PRN PRN Administration Flushing Sodium Chloride 500 ml 12/23/17 11:25 12/23/17 11:26 Normal Saline IV 500 ml PRN PRN Administration Throat Lozenges 5 spray 12/20/17 16:40 12/20/17 17:11 Chloraseptic [place] PO 4 spray Q2H PRN Administration Zolpidem Tartrate 5 mg 12/19/17 21:10 12/19/17 21:25 Ambien PO 12/19/17 21:11 5 mg O ONE Administration Zolpidem Tartrate 5 mg 12/20/17 21:13 12/26/17 20:49 Ambien PO 5 mg HS PRN Administration Insomnia - Urinary Catheter Management 2-way Urethral Cath placed during this visit: no Results 12/28/17 03:55 12/28/17 03:55 Assessment and Plan - Assessment and Plan (1) A-fib Status: Chronic (2) Hypertension Status: Chronic (3) Chronic anticoagulation Problem details: Eliquis Status: Chronic (4) S/P small bowel resection Status: Acute - Attestation Attestation Narrative: 01/06/18 13:42 Recommendation After examining the patient I agree with the above assessment. I am involved in the formulation of the patient's plan of care. Hospital Course Summary Disclaimer: The visit summary below is not to be considered part of the above Progress Note.
[2017-12-28 18:11] VITALS: O2SAT 94
--- NOTE | 2017-12-29 14:16 | Progress Note ---
DATE OF VISIT 12/28/2017 REASON FOR VISIT Postoperative followup. SUBJECTIVE Lisbeth has been doing well today. She did eat a good breakfast and has been ambulating. She continues to have bowel movements. OBJECTIVE VITAL SIGNS: Afebrile with stable vitals on room air. GENERAL: The patient is awake and alert, in no acute distress. ABDOMEN: Soft, nontender. Her midline incision is doing well. There is some duskiness of the skin at the umbilicus but no evidence of infection. IMPRESSION Postop day #6 status post exploratory laparotomy with release of strangulated hernia and segmental small bowel resection with anastomosis - doing well. PLAN 1. Okay for dismissal from a surgical standpoint. 2. Please see the discharge plan of the EMR for surgical instructions. MADAI
== END 2017-12-28 18:35 | disposition home health service (06) | DRG 329 ==
LOC: ED 03:31 → EDHOLD 03:31 → SRG 07:35 → SUATTDRO 12-18 12:14
PROVIDERS: ADMIT Internal Medicine; ATTEND Hospitalist